=== PATIENT | female | born 1970 | race Caucasian/White ===

== ENCOUNTER → 2017-10-18 06:01 | Outpatient (CLI) | payer OTHER, SELFPAY ==
[2017-10-18 07:27] LABS: Anion Gap 7 (5-15); BUN 18 mg/dL (7-18); BUN/Creat Ratio 17.6 RATIO (10-20); Calcium,Total 8.4 mg/dL (8.5-10.1); Chloride 103 mmol/L (98-107); Creatinine, Serum 1.02 mg/dL (0.55-1.02); EST Glomerular Filtration Rate 62 mL/min (>60); Est Glom Filt Rate - Afr Amer 75 mL/min (>60); Glucose 120 mg/dL (74-106); Potassium 3.2 mmol/L (3.5-5.1); Sodium Level 136 mmol/L (136-145)
== END ==
PROVIDERS: Family Provider Family Medicine; PCP Family Medicine; Visit Provider Family Medicine
DX: R63.5 Abnormal weight gain (principal); R53.83 Other fatigue; E87.6 Hypokalemia
CPT/HCPCS: 36415; 80048; 82533

== ENCOUNTER 2017-12-03 15:30 | Outpatient (RCR) | payer OTHER, SELFPAY ==
--- NOTE | 2017-11-05 13:40 | HP.PTEVAL_ITS ---
Patient's Visit Information MANJULA SAUCEDA is a 47 year old F referred to Physical Therapy by Tu Parra with a diagnosis of B PFitis. Date of Evaluation: 11/05/17 Physical Therapist: Enrique Johnson, KATET, OC - Visit Plan Frequency: 3x /Week Duration: 4 Weeks Plan: 3x/week for 3-4 weeks for ionto with dex per script, education on management of night splint and orthotics, STM to gastroc and soleus and eccentric HC strength and calcanela ev mobs and PF STM, US nonthermal to R heel. Has OTC orthotics from doctor office but may benefit from custom orthotics. - Subjective Subjective: R heel pain for over a year, L started recently also. R is up and down. May have started after breaking R tibia fracture in 2015 and was wearing a boot for a while. Has done stretching and chiropractic. Dr. Parra tapes it and has had shock EPAT therapy and it did not cure it and will continue the treatments. R heel: Pain to 0-5/10, worse after sitting for a while or NWB or if on it too much. L heel: 0-2/10. A.M. 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 Sleep is OK. Activities at home are effected as hard to walk dogs and do housework. Hurts too much. Used to do cardio at [employer] but cannot do it due to this and has gained 20# over last 2 years. Has done stretches rolling can on foot or ball on foot, DF stretch, calf stretch on wall and does them 3x/night at work. Has orthotics for a month from Dr. Parra. Has nightsplint . Had injections months ago which did not help at all. - Pain R heel Pain Intensity (Out of 10): 2 Pain Intensity Range: 0, 3 L heel Pain Intensity (Out of 10): 2 Pain Intensity Range: 0, 5 - Objective Walks into and out of PT I and without antalgia today, transfers I. Tender to palpation R heel PF origin moderatley and slightly on L. Pes planus B and R side has some mild hindfoot valgus. AROM B Ankles WNL to 8 degrees DF knees straight adn bent, WFL inv/ev/PF. Strength ankles 4+/5 with mild increased pain R inv at heel. Knees adn hips ROM WFL. - Goals Goal 1:: Pain to 0-1/10 at all times at 90% improved. Goal Time Frame: 4-6 Weeks Goal 2:: I approp HEP and management to minimize future problems Goal Time Frame: 4-6 Weeks - Rehabilitation Potential Physical Therapy Diagnosis: B PFitis Rehabilitation Potential: Questionable - Anticipated Interventions Patient/Client Instruction: Educate patient on: Condition, Plan of Care For the Purpose of:: To decrease pain, To improve nutrient delivery to tissue, To improve ability of physical actions for home/community/work/leisure Therapeutic Exercise to Include: Strength training, Flexibilty training For the Purpose of:: To decrease pain, To decrease swelling/inflammation Manual Therapy Techniques to Include: Mobilization, Passive ROM, Soft tissue mobilization For the Purpose of:: To decrease pain, To decrease swelling/inflammation, To increase ROM Iontophoresis (with Dexamethozone, with Acetic acid): Yes - dex to B PF Ultrasound (thermal/non thermal): Yes - R heel nonthermal. For the Purpose of:: To decrease pain, To decrease swelling/inflammation Thank you for the opportunity to evaluate your patient. For Medicare and Medicare HMO plans, please review the plan of care and approve it. It will need to be FAXED BACK to us at [phone] for Medicare purposes. Please let me know if there are questions or concerns regarding this plan of care. Physician Signature: Date:
--- NOTE | 2017-12-03 16:02 | HP.PTDCSUM_ITS ---
HP - PT D/C Summary It has been my pleasure to treat MANJULA SAUCEDA under orders from Tu Parra, for the diagnosis of B PFitis for a total of 10 visit(s). Discharge Date: 12/03/17 Please see the following information for a summary of their discharge status. - Subjective Subjective: Beens tretching alot and R heel is like a toothache all weekend. 5/ 10. L side is not perfect but much better /10. Doing some strengthening but it hurts. Has had 6 shock wave therapies. Surgery may be the next step. saw doctor Sunday and surgery is only other step. Worked all weekend and was on feet alot but elevated foot as she was able. - Pain R heel Pain Intensity (Out of 10): 5 L heel Pain Intensity (Out of 10): 1 - Overall Improvement % Improvement: 10 - Objective Objective/Function: ROM at ankle 10 degrees DF with knee bent and straight B. Still very tender R heel medially. Antalgia in gait and frustrated patient. OVERALL LEFT IS SOMEWHAT IMPROVED ADN NOT A FUNCTIONAL PROBLEM, R IS NO BETTER AND VERY FRUSTRATING FOR PATIENT DESPITE DOING WHAT WE HAVE ASKED. - Goals Goal 1:: Pain to 0-1/10 at all times at 90% improved. Goal Progress: Not Progressing Goal 2:: I approp HEP and management to minimize future problems Goal Progress: Goal Met - Plan Plan: D/C, pt to doctor for next step. - D/C Information Discharge Comments: Not improving on R side and frustrating patient. Recommend next medical step for R heel pain. Pt to contact doctor. If there are questions or concerns regarding this patient's physical therapy, please feel free to call me at [phone]. Thank you for the referral of this patient. Sincerely, Enrique Johnson, DPT, OC
== END 2017-12-03 19:00 | disposition home or self-care (01) ==
LOC: PT 15:30
PROVIDERS: Family Provider Family Medicine; PCP Family Medicine; Visit Provider Podiatrist
DX: M72.2 Plantar fascial fibromatosis (principal)
CPT/HCPCS: 97033; 97110; 97140; 97162; 97530

== ENCOUNTER → 2017-12-12 09:01 | Outpatient (CLI) | payer OTHER, SELFPAY ==
--- NOTE | 2017-12-12 09:03 | RDU_ITS ---
Reason For Study: HYPERTENSION Right Renal Artery Left Renal Artery Right renal artery ostium Left renal artery ostium 133.0/47.4 174.0/63.6 RSV/EDV. PSV/EDV. Right renal artery proximal Left renal artery proximal PSV/EDV 178.0/63.0 PSV/EDV. 142.0/42.0 . Right renal artery mid 155.0/44.7 Left renal artery mid 149.0/48.9 PSV/EDV. PSV/EDV . Right renal artery distal Left renal artery distal 132.0/42.8 169.0/62.3 PSV/EDV. PSV/EDV. Right RAR 2.1. Left RAR 1.8. Right Renal Parenchyma Left Renal Parenchyma Upper Pole Medula 21.7/6.9 PSV/EDV. Left upper pole medulla 38.8/12.8 Right upper pole medulla EDR .32 . PSV/EDV . Right upper pole medulla R.I. .68 . Left upper pole medulla EDR .33 . Upper [place] Cortx 27.8/11.1 PSV/EDV. Left upper pole medulla R.I. .67 . Right upper pole cortex EDR .40 . UP Cortex 26.9/11.9 PSV/EDV. Right upper pole cortex R.I. .60 . Left upper pole cortex EDR .44 . Right lower Pole medulla 25.7/10.2 Left upper pole cortex R.I. .56 . PSV/EDV . Left lower Pole medulla 34.2/12.8 Right lower pole medulla EDR .40 . PSV/EDV . Right lower pole medulla R.I. .60 . Left lower pole medulla EDR .37 . Lower Pole Cortex 23.7/7.6 PSV/EDV. Left lower pole medulla R.I. .63 . Right lower pole cortex EDR .32 . Lower Pole Cortx 32.4/10.5 PSV/EDV. Right lower pole cortex R.I. .68 . Left lower pole cortex EDR .32 . Right Renal Hilar Left lower pole cortex R.I. .68 . Right Hilar avg 60.6/23.3 PSV/EDV. Left Renal Hilar Right hilar acceleration time 51 LT Hilar avg 51.8/19.3 PSV/EDV . m/sec. Left hilar acceleration time 51 Right Renal Dimensions m/sec. Right kidney size 10.8 cm . Left Renal Dimensions Right cortical dimension 1.5 cm . Left kidney size 9.5 cm . Left cortical dimension 1.4 cm . Aorta Proximal abdominal aorta 1.7 x 1.6 cm . Distal abdominal aorta 1.3 x 1.3 cm . Proximal abdominal aorta peak systolic velocity is 83.9 cm/sec . Distal abdominal aorta peak systolic velocity is 96.7 cm/sec . Interpretation Summary Dimensions of the intra-abdominal aorta appear normal, without evidence of aneurysmal dilatation. Renal artery velocities are bilaterally normal. Acceleration times are normal bilaterally. Renal- aortic ratios are also bilaterally normal. There is no evidence of hemodynamically significant renal artery stenosis on either side. Renovascular resistance appears to be bilaterally normal . Cortical dimensions are bilaterally normal. Kidneys are normal in size bilaterally, though the right kidney is more than one centimeter larger than the left kidney. Ordering Physician: Gayle Merino Referring Physician: Gayle Merino Performed By: Nicole Ambrocio RVT
== END ==
PROVIDERS: Family Provider Family Medicine; PCP Family Medicine; Visit Provider Family Medicine
DX: I10 Essential (primary) hypertension (principal)
CPT/HCPCS: 93975

== ENCOUNTER → 2017-12-13 16:23 | Outpatient (CLI) | payer OTHER, SELFPAY ==
--- NOTE | 2017-12-13 16:41 | MRI_ITS ---
STUDY: MRI RIGHT REARFOOT WITHOUT CONTRAST REASON FOR EXAM: Female, 47 years old. Plantar fasciitis. Heel spur. TECHNIQUE: Standardized fat and water weighted pulse sequences were obtained in all 3 orthogonal planes. COMPARISON: X-ray January 02, 2017 FINDINGS: Normal subcutis adipose space. There is thickening of the distal posterior tibialis tendon consistent with insertional tendinosis, but without a tendon tear. Normal flexor digitorum longus tendon. Normal flexor hallucis longus tendon. Normal peroneus longus and brevis tendons. Normal tibialis anterior tendon. Normal extensor hallucis longus tendon. Normal extensor digitorum longus tendons. Normal Achilles tendon and teno-osseous insertion. There is a plantar fasciitis with plantar fascial thickening and fascial edema, but without a focal tear, series 3 and 4 images 14 and 15. There is a plantar calcaneal spur with focal marrow edema consistent with a marrow stress phenomena, series 3 and 4 images 13 through 15. Normal intrinsic muscles of the rearfoot. Normal distal tibiofibular syndesmotic ligamentous complex. Normal lateral ligamentous complex. Normal subtalar ligaments and sinus tarsi. Normal deltoid ligamentous complexes. Normal plantar calcaneonavicular (spring) ligament. Normal tibiotalar articulation. There is subchondral edema of the posterior tibial plafond Normal talar dome. Normal subtalar articulations. Normal talonavicular articulation. Normal calcaneocuboid articulation. Normal navicular-cuneiform articulations. MRI/Lower Ext/No Jt/w/o IMPRESSION: Planter fasciitis with reactive spurring and edema of the calcaneus. Electronically Signed: Farzad Ann MD at 8:22 EDT , Service support ,
== END ==
PROVIDERS: Family Provider Family Medicine; PCP Family Medicine; Visit Provider Podiatrist
DX: M72.2 Plantar fascial fibromatosis (principal); M77.31 Calcaneal spur, right foot
CPT/HCPCS: 73718

== ENCOUNTER → 2017-12-28 07:51 | Outpatient (CLI) | payer OTHER, SELFPAY ==
[2017-12-28 09:39] LABS: T4 Free Direct 0.93 ng/dL (0.76-1.46); Thyroid Stim Hormone (TSH) 0.79 uIU/mL (0.358-3.74)
== END ==
PROVIDERS: Family Provider Family Medicine; PCP Family Medicine; Visit Provider Family Medicine
DX: E03.9 Hypothyroidism, unspecified (principal)
CPT/HCPCS: 84439; 84443; 84480

== ENCOUNTER 2018-01-25 07:46 | Day surgery (SDC) | payer OTHER, SELFPAY ==
[2018-01-25] VITALS (7 sets, daily range): BP systolic 107–130; BP diastolic 77–95; PULSE 58–80; RESP 16–18; TEMP 36.6–37.1; O2SAT 16–100; BMI 30.1
--- NOTE | 2018-01-25 08:55 | RAD_ITS ---
STUDY: X-RAY - RIGHT FOOT CLINICAL: Female, 47 years old. Resection of the plantar spur. TECHNIQUE: 2 intraoperative view(s) of the foot. COMPARISON: Comparison is made with prior study dated January 02, 2017. FINDINGS: There is evidence of resection of the plantar spur. RAD/Foot 2 Views IMPRESSION: Resection of the plantar spur. Electronically Signed: Orlando Razo MD at 13:25 EDT Tel [phone], Service support ,
[2018-01-25] MEDS: Bupivacaine Mpf 0.5% 30 ML VIAL (09:10)
--- NOTE | 2018-01-25 09:38 | PCM.DC.POD ---
Discharge Diet: Light diet - advance as tolerated Discharge Activity: May Not Drive, Use Crutches Weight Bearing Status: No weight bearing - No weightbearing right foot Keep extremity elevated above heart level: Right Leg - Keep right foot elevated for at least 50 minutes of every hour using pillows Call your doctor if your incision/area has: Continuous Slow Oozing, Sudden Increased Bleeding, Foul Smelling Discharge Call your doctor if you observe: Fever of 101 or Higher, Shortness of breath, Chest pain, Increased palpitations (irregular heartbeat), Calf discomfort, Uncontrolled pain Cleanse incision/area with: Do not get Incision Wet, Keep Dressing Clean & Dry Allergies/Adverse Reactions: Allergies acetaminophen [From Percocet] Adverse Reaction (Verified 01/25/18 08:11) Other HALLUCINATIONS oxycodone [From Percocet] Adverse Reaction (Verified 01/25/18 08:11) Other HALLUCINATIONS Medications to take at Discharge Levothyroxine [Synthroid] 88 mcg PO DAILY 05/21/13 Montelukast [Singulair] 10 mg PO DAILY 01/12/15 Dextroamphetamine/Amphetamine [Adderall 12.5 mg Tablet] 12.5 mg PO BID 01/30/16 Linaclotide [Linzess] 290 mcg PO QODAY 01/30/16 Citalopram [Celexa] 20 mg PO DAILY 07/13/16 Loratadine [Claritin] 10 mg PO DAILY 07/13/16 Potassium Citrate [Potassium Citrate ER] 10 meq PO DAILY 01/18/18 Triamterene/Hydrochlorothiazid [Triamterene-Hctz 37.5-25 mg Cp] 1 each PO DAILY 01/18/18 Acetaminophen/Codeine #3 [Tylenol#3] 1 - 2 tab PO Q6H PRN PRN 3 Days #30 tab 01/25/18 The following prescriptions were given: Acetaminophen/Codeine #3 [Tylenol#3] 1 - 2 tab PO Q6H PRN PRN 3 Days #30 tab PRN Reason: Pain Primary Care Physician: Gayle Merino DO [Primary Care Provider] - Test Results: Test results from this visit will be discussed in further detail at your follow-up appointment, if applicable. Please Follow Up With: Tu Parra DPM When: within 1 week, sooner if needed
--- NOTE | 2018-01-25 09:41 | OP.PCM_ITS ---
Report of Operation Date of Procedure: 01/25/18 Pre-Operative Diagnosis: Plantar fasciitis and infracalcaneal spur, right foot Post-Operative Diagnosis: Same Surgery/Procedure Performed:: Plantar fasciotomy with resection of infracalcaneal spur, right Description of Surgical Findings:: Infracalcaneal spur, right event marketing assistant: yes - Dr. 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 She has elected to undergo surgical intervention - plantar fasciotomy with resection of infracalcaneal heel spur. This was discussed with her in detail, reviewed the possible benefits vs risks, goals, expectations, alternative options, and typical healing/post op recovery. The consent forms were reviewed with her, and she freely signed them. All of her questions were answered. No guarantees were given nor implied. Operative Procedure: The patient was brought back into the operating room and was placed on the operating room table in the supine position. She was carefully secured to the operating room table with a safety belt around the waist. A time out was performed and the patient was properly identified and the surgical plan was confirmed. The patient received 2g of IV Cefazolin for antibiotic prophylaxis. A well padded pneumatic tourniquet was applied around the patient's right ankle. The patient received MAC anesthesia per the anesthesiologist, and a total of 20mL of 0.5% Bupivacaine plain was given as a regional nerve block around the heel surgical site. The right foot was scrubbed , prepped, draped in the usual aseptic fashion. The right foot was elevated for 3 minutes and the right ankle pneumatic tourniquet was inflated to 250mmHg. The infracalcaneal spur was visualized on intra operative fluoroscopy, image was saved. A skin incision was made to the medial hindfoot at the level of the plantar fascia and infracalcaneal spur, careful dissection was completed down through the subcutaneous tissue layer. A plane was created superiorly and inferiorly around the plantar fascia and the medial 50% of the plantar fascia was released via a plantar fasciotomy. It was noted there was significant thickening of the plantar fascia with fibrosis consistent with chronic plantar fasciitis. The infracalcaneal spur was felt, and was carefully resected using a powered rasp. Resection of the infracalcaneal spur was confirmed using intraoperative fluoroscopy. Images pre and post infracalcaneal spur resection were saved. The site was flushed out with copious amounts of normal saline solution. The skin was reapproximated using 3-0 Monocryl. The pneumatic tourniquet was deflated (total tourniquet time was 24 minutes), and there was immediate return of warmth and perfusion to the foot and to all toes on the foot with normal temperature gradient and CFT < 2 seconds to all toes. Hemostasis was achieved. A dressing was applied which consisted of Betadine soaked adaptic, 4x4 gauze, Kerlix and barbara bandage, being sure to apply it not to tight. The patient tolerated the above operative procedure well at the anesthesia well with no complication. The patient was transported to the recovery room with vital signs stable and in good condition. Post operative orders were placed. Post operative instructions were reviewed and dispensed verbal and written. No weightbearing right foot, keep right foot elevated for at least 50 minutes of every hour, keep dressing clean, dry and intact. Prescription for Tylenol #3 1- 2 tabs PO q 6 hours prn pain was prescribed. She is to follow up with me within 1 week or sooner if needed. Grafts/Implants Used: None - Complications None
== END 2018-01-25 10:37 | disposition home or self-care (01) ==
LOC: SDC 07:47 → AC 07:48
PROVIDERS: Family Provider Family Medicine; PCP Family Medicine; Visit Provider Podiatrist
PROC: (CPT 28119; principal; 2018-01-25 08:45)
DX: M72.2 Plantar fascial fibromatosis (principal); M77.31 Calcaneal spur, right foot; E03.9 Hypothyroidism, unspecified; I10 Essential (primary) hypertension; F90.9 Attention-deficit hyperactivity disorder, unspecified type; K21.9 Gastro-esophageal reflux disease without esophagitis; Z79.899 Other long term (current) drug therapy; R00.1 Bradycardia, unspecified
CPT/HCPCS: 28119; 73620; 76000; 93005; J7120; J2405

== ENCOUNTER 2018-03-26 15:00 | Outpatient (RCR) | payer OTHER, SELFPAY ==
--- NOTE | 2018-02-22 11:16 | HP.PTEVAL ---
Patient's Visit Information MANJULA SAUCEDA is a 47 year old F referred to Physical Therapy by Tu Parra with a diagnosis of S/P PLANTAR FASCIOTOMY RESECTION OF SPUR. Date of Evaluation: 02/22/18 Physical Therapist: Vazquez Norman PT, - Visit Plan Frequency: 2x /Week Duration: 4 Weeks Plan: PT intervention flexablity,strengthing ankle plantar fascia,ROM,proprioception - Subjective Subjective: This 47 y/o female presents to physical therapy with s/p plantar fasciotomy and heel spur resection on 01/25/18 at [facility] by DR Parra. Patient was d/c to home DOS NWB right with crutches . Then transition WBAT with boot and weaned from crutches as anita. Patient is in CAM 1 more week and transition out CAM boot to foot orthotics and shoe. Tried PT to surgery and EP which didnt help.Tried cortizone helped temporarly. Patient has orthotitics. Pain is located at heel at inscion . Denies parathesia/tingling. Mild edema. Pain worse with walking standing affects ADL'S and job demands. Patient impairments affect QOL of life.Pain increase with WB and walking. SOCAIL: . 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 GAIT: ambulates with cam boot decrease stance time. PRIOPRIOCEPTION: poor. NEURO: intact. AROM: dorsiflexion 10 ddegrees,plantarflexion 65 degrees,eversion 3 degrees,inversion 40 degrees. SKIN: inscion well approxiamte calcaneous. PALPATION: tender heel. MMT: ankle dorsiflexion /perneous/posterior tibials 4/5 except G-S 3+/5 - Goals Goal 1:: Independant with HEP Goal Time Frame: 4-6 Weeks Goal 2:: Decrease pain with gait by 70% or greater to improve function. Goal Time Frame: 4-6 Weeks Goal 3:: Patient to ambaulate with normal monique Goal Time Frame: 4-6 Weeks Goal 4:: Improve proprioception symmtrical right to left Goal Time Frame: 4-6 Weeks Goal 5:: Patient to improve LFES score by 15-20points to improve QOL Goal Time Frame: 4-6 Weeks - Rehabilitation Potential Physical Therapy Diagnosis: This patient underwent s/p plantarfasciotomy with spur resection with impairments with gait ,wean from boot,ROM, and pain thus impairs ablity to retrurn job demnads Rehabilitation Potential: Good - Anticipated Interventions Patient/Client Instruction: Educate patient on: Condition, Plan of Care For the Purpose of:: To decrease pain, To increase ROM, To improve muscle performance and motor function, To improve ability to perform ADL's, To increase tolerance to activity/condition/position, To improve ability of physical actions for home/community/work/leisure, To improve gait and locomotor functions, To improve health of tissue, To decrease soft tissue restriction, To increase flexibility/ROM, To improve balance, To improve ability to perform tasks related to life management Therapeutic Exercise to Include: Strength training, Flexibilty training, Gait and locomotor training, Passive ROM, Active ROM Comment: ankle /plantarfascia For the Purpose of:: To decrease pain, To decrease swelling/inflammation, To increase ROM, To improve muscle performance and motor function, To increase tolerance to activity/condition/position, To improve ability of physical actions for home/community/work/leisure, To improve health of tissue, To decrease soft tissue restriction, To increase flexibility/ROM, To improve ability to perform tasks related to life management Thank you for the opportunity to evaluate your patient. For Medicare and Medicare HMO plans, please review the plan of care and approve it. It will need to be FAXED BACK to us at [phone] for Medicare purposes. Please let me know if there are questions or concerns regarding this plan of care. Physician Signature: Date:
--- NOTE | 2018-03-26 15:30 | HP.PTDCSUM ---
HP - PT D/C Summary It has been my pleasure to treat MANJULA SAUCEDA under orders from Tu Parra, for the diagnosis of S/P PLANTAR FASCIOTOMY RESECTION OF SPUR for a total of 9 visit(s). Discharge Date: 03/26/18 Please see the following information for a summary of their discharge status. - Subjective Subjective: Doing well no pain today. Dr released me from work - Pain Left Foot Pain Intensity (Out of 10): 0 R foot Pain Intensity (Out of 10): 0 - Overall Improvement % Improvement: 80 - Objective Objective/Function: PALPATION: mild tenderness plantarfascia. NEURO: intact. AROM: ankle WNL all planes. MMT: ankle 5/5. PROPRIOCEPTION: intact - Goals Goal 1:: Independant with HEP Goal Progress: Goal Met Goal 2:: Decrease pain with gait by 70% or greater to improve function. Goal Progress: Goal Met Goal 3:: Patient to ambaulate with normal monique Goal Progress: Goal Met Goal 4:: Improve proprioception symmtrical right to left Goal Progress: Goal Met Goal 5:: Patient to improve LFES score by 15-20points to improve QOL Goal Progress: Goal Met - Plan Plan: D/C to HEP - D/C Information Discharge Comments: HEP If there are questions or concerns regarding this patient's physical therapy, please feel free to call me at [phone]. Thank you for the referral of this patient. Sincerely, Vazquez Norman, PT,
== END 2018-03-26 19:00 | disposition home or self-care (01) ==
LOC: PT 15:00
PROVIDERS: Family Provider Family Medicine; PCP Family Medicine; Referring Provider Podiatrist; Visit Provider Podiatrist
DX: Z98.890 Other specified postprocedural states (principal)
CPT/HCPCS: 97035; 97110; 97140; 97161

== ENCOUNTER → 2018-07-24 15:32 | Outpatient (CLI) | payer OTHER, SELFPAY ==
[2018-01-25 08:02] VITALS: BMI 30.1
--- NOTE | 2018-07-24 15:34 | BI_ITS ---
MAMMOGRAPHY - BILATERAL SCREENING 3-D FEDERICO SYNTHESIS REASON FOR EXAM: Female, 47 years old. Bilateral Screening 3-D tomosynthesis PERTINENT HISTORY: History of cysts. TECHNIQUE: 2-D mammograms and 3-D Federico synthesis of the breast (s) were performed. CAD was performed. COMPARISON: December 20, 2016, September 02, 2014 FINDINGS: The breast composition is composed of scattered fibroglandular density. Scattered benign calcifications are seen stable. There are normal-appearing lymph nodes unchanged. No dense spiculated masses or suspicious microcalcifications are identified. No architectural distortion is identified. There is no skin thickening or retraction. There has been no significant change since the prior study. BI/SCREENING MAMM (CAD), BILAT IMPRESSION: No mammographic signs of malignancy. Routine yearly mammograms recommended. ASSESSMENT CATEGORY: BIRADS Category 2: Benign. A letter regarding these results will be sent to the patient by the facility within 30 days. FOLLOW UP RECOMMENDATION: Yearly follow up mammogram recommended. (A) Approximately 10% of breast cancers are not detected by mammography. A normal mammogram should not delay biopsy of a clinically suspicious abnormality. Electronically Signed: Ko Stratton MD at 13:11 EDT , Service support ,
== END ==
PROVIDERS: Family Provider Family Medicine; PCP Family Medicine; Referring Provider Family Medicine; Visit Provider Family Medicine
DX: Z12.31 Encounter for screening mammogram for malignant neoplasm of breast (principal)
CPT/HCPCS: 77063; 77067

== ENCOUNTER → 2018-07-29 14:25 | Outpatient (CLI) | payer OTHER, SELFPAY ==
--- NOTE | 2018-07-29 14:27 | US_ITS ---
STUDY: THYROID ULTRASOUND REASON FOR EXAM: Female, 47 years old. Follow-up thyroid nodules. TECHNIQUE: Ultrasound evaluation of the thyroid was performed with real-time and static witt-scale imaging. COMPARISON: 12/15/2015. FINDINGS: RIGHT LOBE: The right lobe of the thyroid gland measures 3.8 x 1.1 x 1.7 cm. There is a homogeneous echotexture. There are no demonstrated solid, cystic or complex lesions. The sagittal nodule in the right thyroid lobe that was mentioned previously is not visualized in today's exam. LEFT LOBE: The left lobe of the thyroid gland measures 3.6 x 0.9 x 1.6 cm. There is a homogeneous echotexture. 2 solid nodules, isoechoic and hypoechoic. They measure approximately 0.8 x 0.6 x 0.6 cm and 0.4 x 0.3 x 0.3 cm respectively. ISTHMUS: The isthmus measures 3 mm. Lateral to the right thyroid lobe is a solid isoechoic lymph node with a hypoechoic rim. This measures 1.1 x 0.5 x 0.3 cm. There were 2 lymph nodes identified in this area. Only one is visualized in today's exam. US/Thyroid IMPRESSION: 1. Nonvisualization of the previously subtle hypoechoic nodule in the right thyroid lobe. 2. Normal right thyroid lobe at this time. 3. 2 small solid nodules in the left lower lobe are unchanged when compared to 12/15/2015. 4. Small benign reactive lymph node in the right neck measures 1.1 x 0.5 x 0.3 cm. This is unchanged. 5. Nonvisualization of the second small lymph node in the right neck in today's exam. Electronically Signed: Gabriel Wong MD at 13:29 EDT , Service support ,
== END ==
PROVIDERS: Family Provider Family Medicine; PCP Family Medicine; Referring Provider Family Medicine; Visit Provider Family Medicine
DX: E04.2 Nontoxic multinodular goiter (principal)
CPT/HCPCS: 76536

== ENCOUNTER → 2018-09-02 | Outpatient (CLI) | payer OTHER, SELFPAY ==
[2018-09-02] MEDS: Zolpidem Tartrate 5 MG Tablet PO (22:00)
== END | disposition home or self-care (01) ==
LOC: SL 20:45
PROVIDERS: Family Provider Family Medicine; PCP Family Medicine; Referring Provider Family Medicine; Visit Provider Family Medicine
DX: G47.30 Sleep apnea, unspecified (principal)
CPT/HCPCS: 95811

== ENCOUNTER → 2018-10-29 | Outpatient (CLI) | payer OTHER, SELFPAY ==
[2018-10-28 17:42] VITALS: BMI 30.1
[2018-10-29 14:46] LABS: Mucous, Urine 0 SEEN /hpf (<or=2+); Red Blood Cells-Urine 0 SEEN /hpf (0-5); White Blood Cells 0 SEEN /hpf (0-5)
[2018-10-29 14:51] LABS: Color, Urine Yellow (Yellow); Glucose, Dipstick Normal (Normal); Ketone-Dipstick Negative (Negative); Leukocyte Esterase-Dipstick Negative /ul (Negative); Nitrite-Dipstick Positive (Negative); Occult Blood-Urine 25 /ul (Negative); Protein-Dipstick Negative (Negative); Urine Bilirubin Dipstick Negative (Negative); Urine Clarity Sl. Cloudy (Clear); Urine Urobilinogen 1 mg/dl (Normal); Urine pH 6.5 (5.0 - 8.0)
[2018-10-29 14:59] LABS: Bacteria 1+ /hpf (None Seen); Squamous Epithelial Cells - UA 0-5 SEEN /hpf (5-10)
== END | disposition home or self-care (01) ==
LOC: LABSPEC 14:18
PROVIDERS: Family Provider Family Medicine; PCP Family Medicine; Referring Provider Physician Assistant Surgical; Visit Provider Physician Assistant Surgical
DX: R30.0 Dysuria (principal)
CPT/HCPCS: 81001; 87086

== ENCOUNTER → 2018-11-11 | Outpatient (CLI) | payer OTHER, SELFPAY ==
[2018-10-28 17:42] VITALS: BMI 30.1
--- NOTE | 2018-11-11 15:57 | RAD_ITS ---
STUDY: X-RAY - RIGHT HAND REASON FOR EXAM: Female, 48 years old. Injured hand TECHNIQUE: 3 view(s) of the hand. COMPARISON: None. FINDINGS: No fracture or dislocation. The soft tissue structures are unremarkable. RAD/Hand Min 3 Views IMPRESSION: Normal x-ray examination of the hand. Electronically Signed: Monserrat Conn, at 16:47 EDT Tel , Service support ,
== END | disposition home or self-care (01) ==
LOC: RAD 15:50
PROVIDERS: Family Provider Family Medicine; PCP Family Medicine; Referring Provider Family Medicine; Visit Provider Family Medicine
DX: M79.641 Pain in right hand (principal)
CPT/HCPCS: 73130

== ENCOUNTER → 2019-02-27 14:59 | Outpatient (CLI) | payer OTHER, SELFPAY ==
[2019-02-27 14:39] VITALS: BMI 30.1
--- NOTE | 2019-02-27 15:00 | RAD_ITS ---
STUDY: X-RAY - RIGHT HAND REASON FOR EXAM: Swelling between first and second knuckles, injury a couple months ago. TECHNIQUE: 3 view(s) of the hand. COMPARISON: Radiographs 11/11/2018. FINDINGS: Normal radiocarpal articulation. Normal distal radioulnar joint. Normal visualized carpal bones. Normal carpal articulations Normal carpometacarpal articulation of the thumb. Normal second through fifth carpometacarpal joints. Normal metacarpi. Normal metacarpophalangeal joint of the thumb. Normal interphalangeal joint of the thumb. Normal proximal and distal phalanges of the thumb. Normal metacarpophalangeal joints of the second through fifth fingers. Normal proximal and distal interphalangeal joints of the second through fifth fingers. Normal phalanges of the second through fifth fingers. The soft tissue structures are unremarkable. RAD/Hand Min 3 Views IMPRESSION: Normal x-ray examination of the right hand. Electronically Signed: Jonnie Samano MD at 15:35 EDT Tel , Service support ,
== END ==
PROVIDERS: Family Provider Family Medicine; PCP Family Medicine; Referring Provider Orthopaedic Surgery; Visit Provider Orthopaedic Surgery
DX: M79.641 Pain in right hand (principal)
CPT/HCPCS: 73130

== ENCOUNTER 2019-03-03 15:15 | Emergency (ER) | payer OTHER, SELFPAY ==
[2019-03-03 14:35] VITALS: BMI 30.1
[2019-03-03 15:17] VITALS: BP 158/113; PULSE 85; RESP 16; TEMP 36.9; O2SAT 100; BMI 38.5
[2019-03-03] MEDS: 0.9% Normal Saline 1,000 ML 1000 ML IV (15:47)
[2019-03-03] MEDS: Ketorolac 15 MG/ML Vial IV (15:47)
--- NOTE | 2019-03-03 15:54 | RAD_ITS ---
STUDY: X-RAY CHEST REASON FOR EXAM: Female, 48 years old. Shortness of breath. TECHNIQUE: PA and lateral views of the chest. COMPARISON: None. FINDINGS: There is no focal consolidation. There are few curvilinear opacities within the left lower lung that likely reflect underlying scarring and/or atelectasis. Normal size heart. Normal mediastinum and debbie. Normal visualized pulmonary arteries. Normal visualized aortic arch and descending thoracic aorta. Normal visualized thoracic spine. Normal visualized ribs, clavicles, and shoulders. There is no demonstrated abnormality of the visualized soft tissue structures of the upper abdomen. RAD/Chest PA and Lateral IMPRESSION: Minimal scarring and/or atelectasis within the left lower lung. Electronically Signed: Danette Orlelana MD at 16:12 EDT Tel , Service support ,
[2019-03-03 15:57] LABS: Absolute Lymphocyte Count 1.24 X10^3/uL (0.83-4.51); Absolute Neutrophil Count 3.1 X10^3/uL (2.0-7.7); Basophil# 0.02 X10^3/uL; Basophil% 0.4 % (0-1); Eosinophil# 0.44 X10^3/uL; Hematocrit 39.9 % (37-47); Hemoglobin 13.8 g/dL (12.0-15.0); Lymphocyte # 1.24 X10^3/ul (4.0); Lymphocyte % 22.6 % (19-41); Mean Corp Hgb Conc 34.6 g/dL (32-36); Mean Corpuscular Hgb 31.4 pg (27.0-32.0); Mean Corpuscular Volume 90.9 fL (81-99); Mean Platelet Vol. 9.5 fl (6.2-12.0); Monocyte# 0.67 X10^3/uL; Monocyte% 12.2 % (0-10); NRBC Flagged by Analyzer 0 % (0-5); Neutrophil % 56.4 % (47-70); Platelet Count 244 K/mm3 (150-450); RBC Distribution Width CV 12.5 % (11.6-14.6); RBC Distribution Width SD 41.5 fl (35.1-43.9); Red Blood Count 4.39 M/mm3 (4.2-5.4); White Blood Count 5.5 K/mm3 (4.4-11.0)
[2019-03-03 16:04] LABS: Anion Gap 7 (5-15); BUN 11 mg/dL (7-18); BUN/Creat Ratio 13.4 RATIO (10-20); Calcium,Total 8.4 mg/dL (8.5-10.1); Chloride 103 mmol/L (98-107); Creatinine, Serum 0.82 mg/dL (0.55-1.02); EST Glomerular Filtration Rate 80 mL/min (>60); Est Glom Filt Rate - Afr Amer 97 mL/min (>60); Estimated Creatinine Clearance 70.91 ml/min; Glucose 81 mg/dL (74-106); Potassium 3.5 mmol/L (3.5-5.1); Sodium Level 137 mmol/L (136-145)
--- NOTE | 2019-03-03 16:43 | ED.VISSUMM ---
- ER Visit Summary Date of Service: 03/03/19 Chief Complaint: [Sore throat] History of Present Illness: The patient is a 48 F [presents with a sore throat that started 2 days ago. Patient has some nasal congestion as well as headache and cough. Cough is productive at times. Patient at times feels short of breath activity. Patient states that she feels puffy and feels like her throat is swollen. She is had subjective fever at home. Patient denies sick contacts. She does have a history of hypothyroidism.] Physical Examination: [HEENT-PERRLA, EOMI. Cranial nerves II through XII grossly intact. TMs clear. Mucous membranes moist. No adenopathy. She has some mild pharyngeal erythema. No tonsillar exudates. Uvula midline. No trismus. Patient does have some mild thyroid enlargement noted. Cardiovascular-regular rate and rhythm without murmur or ectopy Lungs-clear to auscultation, chest wall stable without crepitus or subcu emphysema Abdomen-normoactive bowel sounds, soft, nontender, no rebound or rigidity, no peritoneal signs. Extremities-intact ?4, normal range of motion, normal pulses, atraumatic] Test Results: [CBC with differential obtained was normal. Chemistries normal. Influenza screen negative. Strep screen was negative. Chest x-ray showed some lower lobe scarring versus atelectasis on the left. TSH ordered and pending.] Emergency Department Course and Treatment: [Patient was given Decadron 10 mg IV.] Treatment Plan: [Follow-up with primary care physician 3 to 5 days. Will be given prednisone for 3 days.] Disposition: [Discharged home in stable condition.] Impression: [Viral URI] This note was generated with [employer] dictation software. It may contain incorrect words, spelling, and punctuation that were not noted in review of the chart prior to signing ED Disposition - Plan for ED Patient: Referrals: Gayle Merino DO [Primary Care Provider] -
--- NOTE | 2019-03-03 16:45 | ED.DEP ---
ED Disposition - Plan for ED Patient: Instructions: PHARYNGITIS, Viral, URI, Viral, No Abx (Adult) Prescriptions: Prednisone [Deltasone] 20 mg PO DAILY #3 tab Prescription Printed Referrals: Gayle Merino DO [Primary Care Provider] - 3-5 Days
[2019-03-03] MEDS: dexAMETHasone 10 MG/ML Vial IV (16:52)
[2019-03-03 16:54] VITALS: BP 156/98; PULSE 62; RESP 18; O2SAT 97
[2019-03-03 17:07] LABS: Thyroid Stim Hormone (TSH) 2.45 uIU/mL (0.358-3.74)
== END 2019-03-03 16:58 | disposition home or self-care (01) ==
LOC: ED 15:35
PROVIDERS: Emergency Provider Emergency Medicine; Family Provider Family Medicine; PCP Family Medicine
DX: J06.9 Acute upper respiratory infection, unspecified (principal); E03.9 Hypothyroidism, unspecified
CPT/HCPCS: 71046; 80048; 84443; 85025; 87804; 87880; 96361; 96374; 96375; 99283

== ENCOUNTER 2019-04-14 15:00 | Outpatient (RCR) | payer OTHER, SELFPAY ==
[2019-02-27 14:39] VITALS: BMI 30.1
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
--- NOTE | 2019-06-23 18:12 | HP.OTDCNRP_ITS ---
HP - Discharge Summary - Patient Information MANJULA SAUCEDA was seen in my office for initial evaluation on 03/06/19. The following Plan of Care was established for this patient: Initial Frequency: 1x/Week Initial Duration: 4 Weeks Plan: D/C - Anticipated Interventions Anticipated Interventions: A/AAROM/PROM, Strengthening, Edema Control, Triggerpoint Release, Modalities, Orthoses, Joint Protection/Energy Conserva tion, Ergonomic Education This patient was last seen in our office 04/14/19. Pertinent comments regarding their Occupational therapy will appear below: PT was seen for 3 visits in OT. Pts initial eval was 2018 and last apt was 04/14/19. Pt continued to have swelling and therapy was using k-tape and ed. pt on edema control. Pt has not scheduled any further apts and is D/C at this time due to time lapse in services. At this point I will be discontinuing this patient from occupational therapy. I would be happy to see this patient again in the future if found appropriate by the physician. Thank you! Milly Garcia, OTR/L, CHT
== END 2019-04-14 19:00 | disposition home or self-care (01) ==
LOC: OT 15:00
PROVIDERS: Family Provider Family Medicine; PCP Family Medicine; Referring Provider Orthopaedic Surgery; Visit Provider Orthopaedic Surgery
DX: M79.89 Other specified soft tissue disorders (principal); S60.221D Contusion of right hand, subsequent encounter
CPT/HCPCS: 97035; 97110; 97140; 97166; 97530

== ENCOUNTER → 2019-10-23 10:09 | Outpatient (CLI) | payer OTHER, SELFPAY ==
[2019-10-25 12:07] LABS: Barley, Whole Grain <0.10 kU/L (Class 0); Beef <0.10 kU/L (Class 0); Egg, Whole 0.18 kU/L (Class 0/I); Garlic <0.10 kU/L (Class 0); Gluten 0.34 kU/L (Class I); Yeast <0.10 kU/L (Class 0)
[2019-10-25 14:32] LABS: Onion <0.10 kU/L (Class 0); Tomato <0.10 kU/L (Class 0)
== END ==
PROVIDERS: PCP Family Medicine; Referring Provider Otolaryngology; Visit Provider Otolaryngology
DX: T78.40XA Allergy, unspecified, initial encounter (principal)
CPT/HCPCS: 36415; 86003

== ENCOUNTER → 2019-11-19 10:18 | Outpatient (CLI) | payer OTHER, SELFPAY ==
--- NOTE | 2019-11-19 12:56 | NEURO ---
NCS and/or EMG Patient Report Ordering Doctor: Gayle Merino DATE OF SERVICE: 11/19/19 Lalitha Savage presents for electrodiagnostic testing of the right upper limb due to numbness and tingling. Electrodiagnostic Findings: Right median motor nerve demonstrates prolonged distal latency with normal amplitude and conduction velocity. Normal right ulnar motor response. Prolonged right median sensory latency at the wrist. Needle EMG shows no evidence of denervation with normal motor unit action potentials. Electrodiagnostic Assessment: This is an abnormal study. 1. Findings demonstrate right median mononeuropathy, consistent with a mild right carpal tunnel syndrome
== END ==
PROVIDERS: PCP Family Medicine; Referring Provider Family Medicine; Visit Provider Family Medicine
DX: R20.2 Paresthesia of skin (principal); R29.898 Other symptoms and signs involving the musculoskeletal system
CPT/HCPCS: 95886; 95910

== ENCOUNTER 2019-12-16 06:05 | Day surgery (SDC) | payer OTHER, SELFPAY ==
--- NOTE | 2019-12-10 06:43 | EKG12_ITS ---
Test Reason : PRE-OP Blood Pressure : / mmHG Vent. Rate : 057 BPM Atrial Rate : 057 BPM P-R Int : 142 ms QRS Dur : 084 ms QT Int : 476 ms P-R-T Axes : 049 014 034 degrees QTc Int : 463 ms Sinus bradycardia Septal infarct , age undetermined , cannot be excluded Abnormal ECG Confirmed by VIRAJ ZIMMER, YONG ([id number]), youth manager BARRIE MORENO ([id number]) on 12/15/2019 9:09:30 AM Referred By: Vitor Ariza Confirmed By:YONG CALI MD
[2019-12-10 07:59] LABS: Hematocrit 42.2 % (37-47); Hemoglobin 13.8 g/dL (12.0-15.0); Mean Corp Hgb Conc 32.7 g/dL (32-36); Mean Corpuscular Volume 91.7 fL (81-99); Mean Platelet Vol. 9.5 fl (6.2-12.0); Platelet Count 315 K/mm3 (150-450); RBC Distribution Width CV 12.5 % (11.6-14.6); White Blood Count 7.8 K/mm3 (4.4-11.0)
[2019-12-10 08:35] LABS: AST(SGOT) 20 U/L (15-37); Alanine Aminotransfer ALT/SGPT 28 U/L (13-56); Albumin, Serum 3.6 g/dL (3.2-5.0); Alkaline Phosphatase 109 U/L (45-117); Bilirubin, Direct 0.09 mg/dL (0.00-0.30); Globulin 4.2 g/dL (2.2-4.2); Protein, Total 7.8 g/dL (6.4-8.2); Thyroid Stim Hormone (TSH) 0.64 uIU/mL (0.358-3.74)
[2019-12-10 09:23] LABS: Prothrombin Time (Protime)PT. 12.2 SECONDS (11.7-14.9)
[2019-12-10 09:24] LABS: Partial Thromboplast Time 32.2 Seconds (24.1-36.2)
[2019-12-16] VITALS (7 sets, daily range): BP systolic 123–140; BP diastolic 74–96; PULSE 58–88; RESP 16–18; TEMP 36.4–37.2; O2SAT 92–97; BMI 31.7
[2019-12-16] MEDS: Lactated Ringers 1,000 ML 100 ML IV ×2 (06:39→10:05)
[2019-12-16] MEDS: Mupirocin Ointment 22gm Tube 1 APPLIC (08:28)
[2019-12-16] MEDS: Oxymetazoline 0.05% 1 SPRAY SPRAY.BTL 15 SPRAY (08:29)
--- NOTE | 2019-12-16 10:18 | DCINST_ITS ---
You will use the following diet at home:: No restrictions Discharge Activity: May not drive while taking narcotic pain medications. Call your doctor if your incision/area has: Increased Pain/ Swelling Additional Dressing/Incision Instructions:: sleep with head of bed elevated. spray saline into both nostrils 5 times daily. mupirocin ointment to the incision and into the nostrils twice daily. keep the bridge of your nose dry. however, the morning of your follow up appointment, get your nose very wet so the cast comes off in the office easily. Allergies/Adverse Reactions: Allergies poison lisandro extract Allergy (Verified 12/16/19 06:24) Unknown tree and shrub pollen Allergy (Verified 12/16/19 06:24) Unknown acetaminophen [From Percocet] Adverse Reaction (Verified 12/16/19 06:24) Other HALLUCINATIONS gluten Adverse Reaction (Verified 12/16/19 06:24) Pain in joints lactase [From Dairy Aid] Adverse Reaction (Verified 12/16/19 06:24) Pain in joints oxycodone [From Percocet] Adverse Reaction (Verified 12/16/19 06:24) Other HALLUCINATIONS Medications to take at Discharge Levothyroxine [Synthroid] 100 mcg PO DAILY 05/21/13 Citalopram [Celexa] 20 mg PO DAILY 07/13/16 Loratadine [Claritin] 10 mg PO DAILY 07/13/16 Potassium Citrate [Potassium Citrate ER] 30 meq PO DAILY 01/18/18 Triamterene/Hydrochlorothiazid [Triamterene-Hctz 37.5-25 mg Cp] 1 ea PO DAILY 01/18/18 linaclotide 290 mcg capsule 290 mcg PO QODAY 10/28/18 Methylphenidate HCl [Concerta] 18 mg PO DAILY 12/08/19 Montelukast Sodium [Singulair] 10 mg PO QHS 12/08/19 Omeprazole [Prilosec] 20 mg PO DAILY 12/08/19 Primary Care Physician: Gayle Merino DO [Primary Care Provider] - Test Results: Test results from this visit will be discussed in further detail at your follow- up appointment, if applicable. Please Follow Up With: Vitor Ariza MD When: 1 week
--- NOTE | 2019-12-16 10:25 | PCM.OPRPT ---
Problem List (1) Acquired nasal deformity Status: Chronic (2) Nasal congestion Status: Chronic (3) Nasal valve collapse Status: Chronic (4) Nasal turbinate hypertrophy Status: Chronic (5) Nasal septal deviation Status: Chronic Report of Operation Date of Procedure: 12/16/19 Pre-Operative Diagnosis: 1. nasal congestion. 2. nasal septal deviation. 3. internal nasal valve collapse, right and left. 4. inferior turbinate hypertrophy, right and left. 5. aquired nasal deformity Post-Operative Diagnosis: 1. nasal congestion. 2. nasal septal deviation. 3. internal nasal valve collapse, right and left. 4. inferior turbinate hypertrophy, right and left. 5. aquired nasal deformity Surgery/Procedure Performed:: 1. open septorhinoplasty. 2. submucous resection inferior turbinates, right and left. 3. correction internal nasal valve collapse, right and left Type of Anesthesia:: General Description of Procedure: on the day of the procedure, after appropriate informed consent was obtained the patient was brought to the operating room and placed in supine position on the operating table. she was placed under general endotracheal anesthesia by the anesthesiologist. the endotracheal tube was secured, the eyes were taped. the table was rotated 90 degrees toward the surgeon. the nose was injected with lidocaine/epinephrine. the face was prepped and draped. an inverted v columellar incision was made with a conf[place] blade. this was taken into left and right marginal incisions with three point retraction and an iris scissor. the left and right lower lateral cartilages were skeletonized as was the scroll region and upper lateral cartilages. the medial crura were lateralized and the anterior septal angle was located. submucoperichondrial flaps were raised on the left then right using a jonathan elevator. these were taken posteriorly to the bony/cartilaginous junction and inferiorly to the maxillary crest. numerous fracture lines were seen in the cartilaginous septum. the left and right upper lateral cartilages were disarticulated from the nasal septum using a 15 blade. a 1.5 cm L-strut was demarcated on the cartilaginous septum and the remainder was removed with a D knife and jonathan elevator. deviated portions of the perpendicular plate of the ethmoid and vomer were removed with a iglesia yanes. a large right-sided septal spur was removed with the jonathan. 8mm x 2mm internal virtualization consultant grafts were sutured between the nasal septum and the upper lateral cartilages on the left then right with 4-0 PDS in multiple areas. a flaring stitch was placed with 4-0 PDS as well. a 6mm x 2 mm columellar strut graft was sutured between the medial crura for tip support and nasal stability. the head of the right and left inferior turbinates were injected with lidocaine/epinephrine. the head of the right inferior turbinate was incised with a 15 blade. this was dissected submucosally with a jonathan elevator, reduced using suction electrocautery and outfractured using a boies elevator. the head of the left inferior turbinate was incised with a 15 blade. this was dissected submucosally with a jonathan elevator, reduced using suction electrocautery and outfractured using a boies elevator. the submucoperichondrial flaps were closed with 4-0 chromic at multiple points. the inverted V columellar incision was closed with 7-0 vicryl. the latera trocar system was set up and loaded. the left vestibular skin was entered and the trocar was advanced deep to the skin and soft tissue envelope, then deep to the periosteum. the implant was deployed in the correct area at the pre-measured external points. the right vestibular skin was entered and the trocar was advanced deep to the skin and soft tissue envelope, then deep to the periosteum. the implant was deployed in the correct area at the pre-measured external points. velez splints were sutured into place and a dorsal nasal splint was placed. the table was rotated 90 degrees toward the anesthesiologist where she was extubated uneventfully. she was taken to the post anesthesia care unit in stable condition.
== END 2019-12-16 11:44 | disposition home or self-care (01) ==
LOC: SDC 06:06 → AC 06:06
PROVIDERS: Anesthesiology; PCP Family Medicine; Referring Provider Otolaryngology; Visit Provider Otolaryngology
PROC: (CPT 30140; principal; 2019-12-16 07:15)
DX: J34.2 Deviated nasal septum (principal); J34.3 Hypertrophy of nasal turbinates; M95.0 Acquired deformity of nose; Z11.59 Encounter for screening for other viral diseases; I10 Essential (primary) hypertension; E06.9 Thyroiditis, unspecified; K21.9 Gastro-esophageal reflux disease without esophagitis; G47.30 Sleep apnea, unspecified; G25.81 Restless legs syndrome; Z87.442 Personal history of urinary calculi; Z79.899 Other long term (current) drug therapy
CPT/HCPCS: 00160; 30140; 30465; 30520; 36415; 80076; 84443; 85027; 85610; 85730; 87635; 93005; 94799; J7120; J2405; U0003

== ENCOUNTER 2020-02-02 08:38 | Outpatient (RCR) | payer OTHER, SELFPAY ==
[2019-12-16 06:30] VITALS: BMI 31.7
== END 2020-02-04 23:59 ==
LOC: EMPH 08:38
PROVIDERS: PCP Family Medicine; Visit Provider Family Medicine Geriatric Medicine
DX: Z11.59 Encounter for screening for other viral diseases (principal)
CPT/HCPCS: 87635; U0003

== ENCOUNTER 2020-03-04 08:30 | Outpatient (RCR) | payer OTHER, SELFPAY ==
[2019-12-16 06:30] VITALS: BMI 31.7
[2020-02-26 16:09] VITALS: BMI 32.3
== END 2020-03-06 23:59 ==
LOC: EMPH 08:30
PROVIDERS: PCP Family Medicine; Visit Provider Family Medicine Geriatric Medicine
DX: Z03.818 Encounter for observation for suspected exposure to other biological agents ruled out (principal)
CPT/HCPCS: 87426

== ENCOUNTER 2020-03-31 15:56 | Outpatient (RCR) | payer OTHER, SELFPAY ==
[2020-02-26 16:09] VITALS: BMI 32.3
== END 2020-04-05 23:59 ==
LOC: EMPH 15:56
PROVIDERS: PCP Family Medicine; Visit Provider Family Medicine Geriatric Medicine
DX: Z03.818 Encounter for observation for suspected exposure to other biological agents ruled out (principal)
CPT/HCPCS: 87426

== ENCOUNTER → 2020-04-12 16:01 | Outpatient (CLI) | payer OTHER, SELFPAY ==
[2020-02-26 16:09] VITALS: BMI 32.3
--- NOTE | 2020-04-12 16:02 | BI_ITS ---
MAMMOGRAPHY - BILATERAL SCREENING REASON FOR EXAM: Female, 49 years old. Routine annual screening examination. PERTINENT HISTORY: Non-contributory. TECHNIQUE: Digital bilateral breast federico (3D mammographic acquisition) in the CC and MLO projections. 2-D mediolateral oblique (MLO) and craniocaudad (CC) views of both breasts were obtained. CAD: Full Field Digital Mammography with Computer Added Detection was performed. COMPARISON: Comparison is made with prior study dated 07/24/2018 and 12/20/2006. FINDINGS: Breast Composition: The breasts are heterogeneously dense, which may obscure small masses. There are no dominant masses or suspicious calcifications. Stable benign-appearing bilateral axillary lymph nodes. No other significant abnormalities are identified. There has been no significant change since the prior study. BI/SCREEN MAMM (CAD) W/FEDERICO BILAT IMPRESSION: Stable bilateral screening mammogram. Yearly follow-up mammogram recommended. (A) ASSESSMENT CATEGORY: BIRADS Category 2: Benign. A letter regarding these results will be sent to the patient by the facility within 30 days. Approximately 10% of breast cancers are not detected by mammography. A normal mammogram should not delay biopsy of a clinically suspicious abnormality. [id number] Electronically Signed: Orlando Razo, at 8:14 EST , Service support ,
== END ==
PROVIDERS: PCP Family Medicine; Referring Provider Obstetrics & Gynecology; Visit Provider Obstetrics & Gynecology
DX: Z12.31 Encounter for screening mammogram for malignant neoplasm of breast (principal)
CPT/HCPCS: 77063; 77067

== ENCOUNTER 2020-05-05 14:21 | Outpatient (RCR) | payer OTHER, SELFPAY ==
[2020-02-26 16:09] VITALS: BMI 32.3
== END 2020-05-06 23:59 ==
LOC: EMPH 14:21
PROVIDERS: PCP Family Medicine; Visit Provider Family Medicine Geriatric Medicine
DX: Z03.818 Encounter for observation for suspected exposure to other biological agents ruled out (principal)
CPT/HCPCS: 87426

== ENCOUNTER 2020-06-01 15:06 | Outpatient (RCR) | payer OTHER, SELFPAY ==
[2020-02-26 16:09] VITALS: BMI 32.3
== END 2020-06-06 23:59 ==
LOC: EMPH 15:06
PROVIDERS: PCP Family Medicine; Referring Provider Family Medicine Geriatric Medicine; Visit Provider Family Medicine Geriatric Medicine
DX: Z03.818 Encounter for observation for suspected exposure to other biological agents ruled out (principal)
CPT/HCPCS: 87426

== ENCOUNTER 2020-06-08 12:59 | Outpatient (RCR) | payer OTHER, SELFPAY ==
[2020-02-26 16:09] VITALS: BMI 32.3
[2020-06-08 08:35] LABS: Probe Check PASS; Specimen Processing Control PASS
== END 2020-07-04 23:59 ==
LOC: EMPH 12:59
PROVIDERS: PCP Family Medicine; Referring Provider Family Medicine Geriatric Medicine; Visit Provider Family Medicine Geriatric Medicine
DX: Z03.818 Encounter for observation for suspected exposure to other biological agents ruled out (principal)
CPT/HCPCS: 87635; U0002

== ENCOUNTER → 2020-07-01 06:06 | Outpatient (CLI) | payer OTHER, SELFPAY ==
[2020-02-26 16:09] VITALS: BMI 32.3
--- NOTE | 2020-07-01 06:29 | RAD_ITS ---
STUDY: X-RAY - PELVIS AND RIGHT HIP REASON FOR EXAM: Female, 49 years old. c/o rt hip pain, nki -- ? IT band syndrome, r/o calcifiic tendinitis TECHNIQUE: 3 views of the pelvis and hip. COMPARISON: None. FINDINGS: There is a non-specific bowel gas pattern. Normal visualized soft tissue structures. Normal bilateral iliac wings, sacroiliac joints and visualized sacrum. Normal bilateral superior and inferior pubic rami. Normal pubic symphysis. Normal bilateral ischial tuberosities. Normal visualized femoral head. Normal acetabulum. Normal hip joint. RAD/HIP, UNI W/ Pelvis 2-3 Views IMPRESSION: Normal x-ray examination of the pelvis and hip. Electronically Signed: Orlando Razo MD at 9:17 EST , Service support ,
== END ==
PROVIDERS: PCP Family Medicine; Visit Provider Family Medicine
DX: M79.604 Pain in right leg (principal)
CPT/HCPCS: 73502

== ENCOUNTER 2020-07-06 14:51 | Outpatient (RCR) | payer OTHER, SELFPAY ==
[2020-02-26 16:09] VITALS: BMI 32.3
--- NOTE | 2020-07-07 14:46 | HP.PTEVAL_ITS ---
Patient's Visit Information MANJULA SAUCEDA is a 49 year old F referred to Physical Therapy by Dr. Fitz Herr DO with a diagnosis of R hip pain. Date of Evaluation: 07/06/20 Physical Therapist: Vishal Saavedra DPT - Visit Plan Frequency: 2x /Week Duration: 4 Weeks Plan: Start with IT band and piriformis stretching. Add in glute medius and glute josiah strengthening to increase stability and reduce over use of TFL. - Subjective Pt. is here today for her initial evaluation with diagnosis of R hip pain. She reports having pain for ~6 weeks now. No SHERICE. 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 Increased pain: walking, standing, flexing/extending hip, IE bending forward or stairs. Pt. isolates pain at lateral R hip at greater trochanter region. Pt. does have increased pain after working a 12 hour shift. She has started back to kick boxing as exercises at his noticing some hip pain as well. Pain started prior to starting this exercise. No medications or injections. No xrays completed. Pt. is hopeful to reduce symptoms in order to get back to all recreational and work activities without limitations. - Pain R hip Pain Intensity (Out of 10): 3 Pain Intensity Range: 1, 6 - Objective POSTURE: Pt. has decent posture in stance. Slight flexion noted of lumbar spine. Pt. has normal iliac crest heights (symmetrical). PALPATION: Pt. has tenderness at posterior aspect of greater trochanter. tenderness at piriformis muscle attachement, but not at piriformis muscle belly. Pt. had no tenderness at TFL muscle belly or glute med muscle belly. NEURO: Normal sensation throughout BLEs. Normal 2+ DTR of bilateral achilles and patellar tendons, bilaterally. Pt. is able to rise on heels and toes without issues. ROM: Pt. has normal B ankle and knee ROM without increase in symptoms. R hip, full motion, no increase in symptoms with scour testing. Normal HS length, tigthness noted at IT band. L normal. MMT: RLE- ankle/knee 5/5 throughout; hip- flexion 4+/5, abd 4/5 increase NW, ext 4/5, IR 4/5, ER 4+/5. GAIT: Pt. ambulates with a slight antalgic patten during R stance phase. She has contralateral hip drop as well druign R stance phase (most likely due to pain and sligth weakness). STAIRS: pt. has marked R hip weakness wtih ascending and descending of R lateral hip resulting in R knee valgus positoning and contralateral hip drop. - Special Tests R Hip Scour: Negative R Hip AC - Intraarticular Pathology: Negative R Hip FADDIR - Labrum: Negative R Hip Impingement Provocation - Labrum: Negative R Hip Trendelenberg - Glut Medius: Positive R Hip Gaurav - IT Band: Positive Comment: slight positive trandelenburg, not a large sign - Goals Goal 1:: LTG: Pt. to be I with HEP for R hip stretching and glute medius and josiah strengthening. Goal Time Frame: 4-6 Weeks Goal 2:: STG: Pt. to be able to walk unlimited distances without increase in symptoms. Goal Time Frame: 2-4 Weeks Goal 3:: LTG: Pt. to negotiate 1 flight of steps with 1 HR with reciprocal pattern without increase in R hip pain. Goal Time Frame: 4-6 Weeks Goal 4:: STG: Pt. to have negative Obers test, indicating normal IT band length. Goal Time Frame: 2-4 Weeks Goal 5:: LTG: Pt. to have increased glute medius and glute josiah strength increased by 1/2 grade. Goal Time Frame: 4-6 Weeks - Rehabilitation Potential Physical Therapy Diagnosis: Pt. has signs and symptoms consistent with R hip pain. Most likely due to IT band syndrome resulting in greater trochanteric bursitis. Pt. has slight tightness in ITB (TFL), slight tightness with piriformis muscle belly as well. She has marked glute med and glute max weakness as well. She would benefit from PT to adress the above limitations progressing back to all recreational and work activities without limitations. Rehabilitation Potential: Excellent - Anticipated Interventions Patient/Client Instruction: Educate patient on: Condition, Plan of Care, Risk Factors, Benefits of Fitness Program For the Purpose of:: To improve decision making, To facilitate caregiver knowledge, To improve self management, To prevent re-injury, To improve ability to perform tasks related to life management, To improve tolerance to ADL's Therapeutic Exercise to Include: Strength training, Power training, Endurance training, Body mechanics, Postural training, Flexibilty training, Passive ROM, Active ROM, Dynamic Lumbar Stabilization For the Purpose of:: To decrease pain, To decrease swelling/inflammation, To increase ROM, To improve nutrient delivery to tissue, To increase oxygenation perfusion, To improve muscle performance and motor function, To improve ability to perform ADL's, To improve health of tissue, To decrease soft tissue restriction, To increase flexibility/ROM IF ES: Yes Cryotherapy (ice pack, ice massage): Yes Thermo therapy (hot pack): Yes Ultrasound (thermal/non thermal): Yes For the Purpose of:: To decrease pain, To decrease swelling/inflammation, To increase ROM, To improve nutrient delivery to tissue, To increase oxygenation perfusion, To improve muscle performance and motor function, To improve ability to perform ADL's Thank you for the opportunity to evaluate your patient. For Medicare and Medicare HMO plans, please review the plan of care and approve it. It will need to be FAXED BACK to us at [phone] for Medicare purposes. For Medicare only, by signing this I certify the plan of care. Please let me know if there are questions or concerns regarding this plan of care. Physician Signature: Date:
== END 2020-07-06 19:00 | disposition home or self-care (01) ==
LOC: PT 14:51
PROVIDERS: PCP Family Medicine; Referring Provider Family Medicine; Visit Provider Family Medicine
DX: M76.30 Iliotibial band syndrome, unspecified leg (principal)
CPT/HCPCS: 97110; 97161

== ENCOUNTER 2020-12-30 11:58 | Outpatient (RCR) | payer OTHER, SELFPAY ==
[2020-02-26 16:09] VITALS: BMI 32.3
== END 2021-01-04 23:59 ==
LOC: EMPH 11:58
PROVIDERS: PCP Family Medicine; Referring Provider Family Medicine Geriatric Medicine; Visit Provider Family Medicine Geriatric Medicine
DX: Z03.818 Encounter for observation for suspected exposure to other biological agents ruled out (principal)
CPT/HCPCS: 87426

== ENCOUNTER → 2021-01-12 09:35 | Outpatient (CLI) | payer OTHER, SELFPAY ==
[2020-02-26 16:09] VITALS: BMI 32.3
[2021-01-12 10:56] LABS: Thyroid Stim Hormone (TSH) 0.26 uIU/mL (0.358-3.74)
== END ==
PROVIDERS: PCP Family Medicine; Referring Provider Family Medicine; Visit Provider Family Medicine
DX: Z00.00 Encounter for general adult medical examination without abnormal findings (principal); E03.9 Hypothyroidism, unspecified
CPT/HCPCS: 36415; 84439; 84443

== ENCOUNTER → 2021-02-17 13:06 | Outpatient (CLI) | payer OTHER, SELFPAY ==
[2021-02-17 13:41] LABS: Erythrocyte Sedimentation Rate 27 mm/hr (0-30)
[2021-02-17 14:25] LABS: CRP 7.85 mg/L (0.0-3.0); Rheumatoid Factor < 10.0 IU/mL (<15)
[2021-02-21 09:07] LABS: ANTINUCLEAR ANTIBODIES DIRECT Negative (Negative)
[2021-02-22 08:06] LABS: CCP IgG Antibodies 9 units (0-19)
== END ==
PROVIDERS: PCP Family Medicine; Referring Provider Family Medicine; Visit Provider Family Medicine
DX: M19.90 Unspecified osteoarthritis, unspecified site (principal)
CPT/HCPCS: 36415; 85652; 86038; 86140; 86200; 86225; 86235; 86431

== ENCOUNTER → 2021-02-24 15:59 | Outpatient (CLI) | payer OTHER, SELFPAY ==
--- NOTE | 2021-02-24 16:00 | US_ITS ---
STUDY: THYROID ULTRASOUND REASON FOR EXAM: Female, 50 years old. RECHECK SMALL LFT NODULE TECHNIQUE: Ultrasound evaluation of the thyroid was performed with real-time and static witt-scale imaging. COMPARISON: 07/29/2018 FINDINGS: RIGHT LOBE: The right lobe of the thyroid gland measures 3.5 x 1.5 x 1.2 cm. There is a heterogeneous echotexture. There are no demonstrated solid, cystic or complex lesions. LEFT LOBE: The left lobe of the thyroid gland measures 2.8 x 0.9 x 1.2 cm. There is a homogeneous echotexture. Nodule 1: Shrinking 5 x 4 x 5 mm (from 8 x 6 x 6 mm) solid hypoechoic wider than tall ill-defined marginated nodule with no echogenic foci (TR 4) in the posterior left lobe consistent with a tiny adenoma. ISTHMUS: The isthmus measures 1 mm thick. . The regional lymph nodes are normal. US/Thyroid IMPRESSION: Thyroiditis with shrinking adenoma in the left lobe. Electronically Signed: Alex Kingston MD at 17:51 EDT Tel , Service support ,
== END ==
PROVIDERS: PCP Family Medicine; Referring Provider Family Medicine; Visit Provider Family Medicine
DX: E04.1 Nontoxic single thyroid nodule (principal)
CPT/HCPCS: 76536

== ENCOUNTER 2021-05-05 07:17 | Outpatient (RCR) | payer OTHER, SELFPAY ==
[2021-01-05 00:13] VITALS: BMI 32.3
== END 2021-05-06 23:59 ==
LOC: EMPH 07:17
PROVIDERS: PCP Family Medicine; Referring Provider Family Medicine Geriatric Medicine; Visit Provider Family Medicine Geriatric Medicine
DX: Z03.818 Encounter for observation for suspected exposure to other biological agents ruled out (principal)
CPT/HCPCS: 87635; U0003; U0005

== ENCOUNTER → 2021-10-17 | Outpatient (CLI) | payer OTHER, SELFPAY ==
--- NOTE | 2021-10-17 15:35 | RAD_ITS ---
STUDY: XR Knee Complete 4 Views or More 10/17/2021 4:09 PM REASON FOR EXAM: Female, 51 years old. LEFT KNEE INJURY, PAIN TECHNIQUE: XR Knee Complete 4 Views or More LEFT COMPARISON: None FINDINGS: Normal visualized distal femur. Normal visualized proximal tibia and fibula. Normal proximal tibiofibular articulation. Normal medial femorotibial compartment. Normal lateral femorotibial compartment. Normal patellofemoral articulation. There is a moderate volume joint effusion. The soft tissue structures are unremarkable. RAD/Knee 4 or More Views IMPRESSION: There is a moderate volume joint effusion. Electronically Signed: Keith Clemons MD at 16:09 EDT ,
== END | disposition home or self-care (01) ==
LOC: RAD 15:28
PROVIDERS: PCP Family Medicine; Visit Provider Family Medicine
DX: M25.562 Pain in left knee (principal)
CPT/HCPCS: 73564

== ENCOUNTER → 2021-10-26 | Outpatient (CLI) | payer OTHER, SELFPAY ==
--- NOTE | 2021-10-26 18:15 | MRI_ITS ---
STUDY: MRI LEFT KNEE REASON FOR EXAM: Anterior left knee pain, unable to bend knee completely, left knee injury 10/16/2021. TECHNIQUE: Standardized fat and water weighted pulse sequences were obtained in all 3 orthogonal planes. COMPARISON: Radiographs 10/17/2021. FINDINGS: There is a very small vertical tear of the articular surface of the posterior horn of the medial meniscus (proton-density sagittal image 16). Normal hyaline cartilage of the medial femorotibial compartment. There are bone contusions of the posterior aspect of the medial and lateral tibial plateau (T2 coronal images 11-14). There is a mild sprain of the superficial fibers of the medial collateral ligament (T2 coronal image 17). Normal distal semimembranosus, gracilis and semitendinosus tendons. There is a complex tear of the posterior horn of the lateral meniscus (proton-density coronal image 12; proton-density sagittal images 27-29). Normal hyaline cartilage of the lateral femorotibial compartment. There is a subchondral bone contusion of the lateral femoral condyle (T2 sagittal images 17, 18). Normal proximal tibiofibular articulation. There is a sprain of the lateral collateral ligament (T2 coronal image 13). Normal popliteus tendon. Normal biceps femoris tendon. There is a complete tear of the proximal/mid anterior cruciate ligament (T2 sagittal image 13). Normal posterior cruciate ligament (PCL). There is mild lateral subluxation of the patella (T2 axial image 11). Normal hyaline cartilage of the patellofemoral compartment. Normal medial and lateral patellar retinaculum. Normal quadriceps tendon. Normal patellar tendon. Normal Hoffa''s fat pad. There is a [id number] sized joint effusion with mild extravasation of fluid. There is a thin medial patellar plica. There is edema in the subcutis adipose space. The otherwise visualized osseous structures are unremarkable. MRI/Lower Ext Joint Only (Routine) IMPRESSION: Anterior cruciate ligament tear. Sprains of the lateral collateral and medial collateral ligaments. Lateral meniscal tear. Very small medial meniscal tear. Bone contusions of the medial and lateral tibial plateau and lateral femoral condyle. Mild lateral subluxation of the patella. Joint effusion with mild extravasation of fluid. Electronically Signed: Jonnie Samano MD at 9:54 EDT ,
== END | disposition home or self-care (01) ==
LOC: MRI 17:49
PROVIDERS: PCP Family Medicine; Referring Provider Family Medicine; Visit Provider Family Medicine
DX: S83.242A Other tear of medial meniscus, current injury, left knee, initial encounter (principal); M25.562 Pain in left knee
CPT/HCPCS: 73721

== ENCOUNTER 2021-11-08 08:11 | Day surgery (SDC) | payer OTHER, SELFPAY ==
[2021-11-08 08:25] VITALS: BP 135/84; PULSE 58; RESP 16; TEMP 36.4; O2SAT 97; BMI 32.2
--- NOTE | 2021-11-08 08:29 | PCM.HP.BLA ---
History and Physical Date of Admission: 11/08/21 [facility] [address] [place] [address] OFFICE VISIT Date of Service:? 10/31/21 MR#: [id number] Acct: [id number] Name:MANJULA BRUNO Rep #: [id number] : 1970 ? ? Provider: Dr. Dylan Gilman, DO Age/Sex:? 51/F ? ? Location: [facility] [place] Status: Signed Intake Vital Signs ? 12/21/2106:26 10/31/2210:07 Height 5 ft 3 in 5 ft 3 in Weight: ? 179 lb 4 oz BMI ? 31.7 Intake Visit Reasons:?LEFT KNEE Chief Complaint: Sinus/chest congestion Is patient in pain?: Yes (Left Knee) Pain scale (1-10): 3 Allergies poison lisandro extract Allergy (Verified 10/31/21 11:14) Unknowntree and shrub pollen Allergy (Verified 10/31/21 11:14) Unknownacetaminophen [From Percocet] Adverse Reaction (Verified 10/31/21 11:14) Othergluten Adverse Reaction (Verified 10/31/21 11:14) Pain in jointslactase [From Dairy Aid] Adverse Reaction (Verified 10/31/21 11:14) Pain in jointsoxycodone [From Percocet] Adverse Reaction (Verified 10/31/21 11:14) Other Medications levothyroxine 88 mcg tablet 100 mcg PO DAILY 05/21/13 [History Confirmed 10/31/21] citalopram 20 mg tablet 20 mg PO DAILY 07/13/16 [History Confirmed 10/31/21] potassium citrate 10 mEq (1,080 mg) tablet,extended release 30 meq PO DAILY 01/18/18 [History Confirmed 10/31/21] triamterene 37.5 mg-hydrochlorothiazide 25 mg capsule 1 ea PO DAILY 01/18/18 [History Confirmed 10/31/21] montelukast 10 mg tablet 10 mg PO QHS 12/08/19 [History Confirmed 10/31/21] omeprazole 20 mg capsule,delayed release 20 mg PO DAILY 12/08/19 [History Confirmed 10/31/21] dextroamphetamine-amphetamine ER 20 mg 24hr capsule,extend release (Adderall XR) 20 mg PO DAILY 02/26/20 [History Confirmed 10/31/21] linaclotide 290 mcg capsule 290 mcg PO QODAY PRN 02/26/20 [History Confirmed 10/31/21] furosemide 40 mg tablet 40 mg PO 10/31/21 [History Confirmed 10/31/21] levocetirizine 5 mg tablet (Xyzal) 5 mg PO DAILY 10/31/21 [History Confirmed 10/31/21] [facility] Medical History? Arthritis Back pain Bruises easily CHILD Fatigue Heel spur History of kidney stones HTN (hypertension) Plantar fasciitis Thyroid disease Surgical History? H/O: hysterectomy History of lithotripsy S/P rhinoplasty Status post laser ablation of incompetent vein Family History? Other CHF (congestive heart failure) Cancer Heart disease Hypertension Obesity S/P triple vessel bypass Thyroid disorder Social History? Smoking Status:? Never smoker alcohol intake:? current substance use type:? does not use caffeine:? Yes what type of physical activity do you participate in:? none seatbelt use:? always do you feel safe at home:? Yes additional social history:? 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 Dylan Gilman, DO 10/31/21 2736. MANJULA SAUCEDA is a NEW patient referral from Dr. Herr. she is a 51 year old F here today for Left knee injury. Patient states that on 10/16/21 she hopped off her deck onto uneven ground and states that she hyperextended and buckled her knee. States that she did not fall from the injury but did fall later that day when her knee gave out on her. She states that she saw Dr. Herr on 10/17/21 and he ordered xray of her left knee. Dr. Nemesio velásquez ordered an MRI which revealed an ACL tear, a lateral meniscus tear, and a small medial meniscus tear. Patient was then referred to our office. Patient states that she is able to walk on her knee and is using a soft brace that she bought at a pharmacy. Patient rates pain as a 3/10 only with movement. States that her daughter was tested for Emilie Danlos syndrome and does have and they believe she has it also? but has never been tested for it. Denies any new popping or snapping in her left knee. Denies numbness, tingling or other associated symptoms. ROS Skin/Breast Reports rash Ortho Exam General General: Yes no acute distress Neurologic: Yes alert and Yes oriented x3 Psychologic: Yes reasonable and appropriate Right Knee Patella Translation: 1 Left Knee Skin/Wound: No ecchymosis, No erythema and Yes swelling 2+: Effusion Knee ROM: Yes ROM-Extension -20 to 0 (-15) and Yes ROM-Flexion 0-140 (85) Examination: Yes med jt line tenderness, Yes Lat jt line tenderness, Yes Pain with flexion and No TTP Patellar tendon Stability: NML: Posterior Drawer, NML: Valgus 0, NML: Valgus 30, NML: Varus 0, NML: Varus 30, NML: Dial 90 and NML: Dial 30 and 2+: Anterior Drawer and 2+: Ambreen Apprehension with Lateral Translation: No Patella Translation: 1 KNEE: no patellar instability symmetrical dial test she does not have pain with cruciate or collateral stress Supplemental Info 10/26/2021 MRI left knee: Complex tear posterior horn lateral meniscus, small vertical tear posterior horn medial meniscus, superficial sprain of the MCL mild sprain LCL bone contusions consistent with ACL rupture lateral femoral condyle lateral tibial plateau ACL rupture midsubstance lateral patellar tracking small medial plica Coding Level of Care Code 00707 Assessment and Plan Plan Details Additional Comments: Question was had with Manjula in regards to her diagnosis and treatment option plan.? We did asked discussed extensively conservative versus surgical options risk benefits and alternatives of both.? She does have a ACL tear which is likely near full-thickness as well as a complex posterior horn lateral meniscus tear and a small posterior horn medial meniscus tear we did discuss arthroscopic surgery and options for partial meniscectomy versus repair, she is likely not a candidate for a meniscal repair due to the complex nature of the tear however we discussed that if it was indeed repairable the modification of the postoperative recovery of nonweightbearing for 6 weeks and restrictions for 3 to 4 months and she does not wish to undertake that type of recovery.? In regards to the ACL rupture we did discuss reconstruction versus rehab.? Did explain to her that there is potential for compensation with rehab with quad and hamstring training.? At this point she is not really having much instability or significant pain with it.? We discussed doing the reconstruction during the arthroscopic procedure for her meniscus versus holding off on this bigger procedure for now and seeing how she rehabs.? She understands risk benefits alternatives of both options and wishes to proceed with only the arthroscopic meniscal surgery at this time for partial meniscectomy.? We will start physical therapy immediately afterwards for ACL compensation in addition we did provide a hinged brace that she will wear for 6 weeks to help treat the collateral sprains of the MCL and LCL. ?Risks and benefits of the procedure were fully explained, including but not limited to infection, neurovascular injury, continued pain, arthritis, stiffness, need for further surgery, re-injury, DVT, PE, general risks of anesthesia, and loss of limb or life. The patient understands all the risks and does wish to proceed with written consent. Recommend wearing a hinge brace on the left knee until surgery. Patient can continue to work while wearing the brace until surgery. Recommend getting patient into physical therapy as soon as possible to learn exercises for ACL. Follow up 2 weeks postop or sooner if pain, swelling, numbness or associated symptoms, or concerns develop.? All questions answered. Patient in agreement of plan. 10/31/21 1317 <Electronically signed by Dylan Gilman DO> Date Dylan Gilman DO Cosigner Signature: Date (if applicable) I have examined the patient the following changes are noted: Patient does wish to proceed with meniscal repair if it is repairable she understands postoperative restrictions of 6 weeks of toe-touch weightbearing she does not wish to have her ACL reconstructed
[2021-11-08] MEDS: Lactated Ringers 1,000 ML 15 ML IV (08:31)
[2021-11-08] MEDS: Cefazolin 2 GM in 0.9% Normal Saline 100 ML IV (09:00)
[2021-11-08] MEDS: Epinephrine (1 mg/ml) 1 MG/ML VIAL (09:30)
[2021-11-08] MEDS: Lidocaine 1% /Epi 1:100 (20ml) 20 ML Vial (09:30)
[2021-11-08] MEDS: Bupivacaine Mpf 0.5% 30 ML VIAL (09:53)
[2021-11-08] MEDS: MethylPREDNISolone Acetate 40 MG/ML Vial IM (09:53)
--- NOTE | 2021-11-08 10:00 | OP.PCM_ITS ---
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 Anesthesia: General Estimated blood loss: 5 mL Tourniquet time: 30 minutes 300 mmHg Complications: none Indication for procedure: 51-year-old female patient who had an injury jumping off of a deck, she did have mechanical knee pain and MRI evidence of ACL rupture medial lateral meniscal tears as well as MCL and LCL sprains, we discussed surgical nonsurgical options including ACL reconstruction for which the patient did not wish to undergo at her age she did however wish to proceed with arthroscopic meniscal surgery meniscectomy versus repair she understood the different postoperative expectations and the comp sequences of having a meniscal tear on the cartilage health of the knee, she was having swelling and mechanical symptoms the patient did wish to proceed with an elective arthroscopic surgery to attempt to alleviate the symptoms. Risk benefits and alternatives of the procedure were reviewed including risk of bleeding infection nerve artery tissue damage need for further surgery continued pain and expected postoperative course. Procedure: The patient was met in the preoperative holding area. The operative extremity was identified by both patient and physician and family and marked. Patient was brought back to the operating room on a wheeled cart and transferred to the operating table in the supine position. Anesthesia was started. A well-padded tourniquet was placed on the operative extremity. A lower extremity leg jones was secured to the operative extremity. The contralateral extremity was well-padded and the end of the bed was flexed to 90 degrees. The patient was prepped and draped in the usual sterile fashion. A timeout was called to ensure the proper patient, procedure, and extremity were being contemplated. 0.5% Marcaine with epinephrine was injected into the planned incisional areas under the skin only. An Esmarch was used to exsanguinate the extremity and the tourniquet was inflated. An 11 blade scalpel was used to make a stab incision in the anterior lateral portal. The arthroscope was inserted into the intercondylar notch and inflow and outflow tubes were attached. Arthroscopic visualization began. The medial compartment was entered. An 18-gauge spinal needle was used to establish the placement for anterior medial portal. An 11 blade scalpel was used to make a stab incision. Blunt probe was inserted followed by a meniscal probe. Upon evaluation there was a small undersurface tear of the posterior horn of the medial meniscus horizontal in nature with use of arthroscopic biting instruments and a shaver partial medial meniscectomy was performed the ACL was torn about 80% there was a piece that was entering the lateral compartment which was debrided of note on examination under anesthesia prior to the start of the case there was a negative pivot shift and firm endpoint this must be related to the residual fibers that are attached. The lateral compartment was entered complex tearing of the posterior horn of the lateral meniscus and a small radial tear of the body of the lateral meniscus with the use of arthroscopic biting instruments and rk and ArthroCare wand a partial lateral meniscectomy was performed. A good rim of meniscal tissue was remaining stable upon probing and the root was attached, there was residual horizontal tearing in the posterior horn that was stable upon the completion of the procedure the arthroscope was switched to the medial portal to complete the procedure. The medial and lateral gutters were inspected and were free of loose bodies. The patellofemoral joint was inspected and had some grade II chondromalacia there was a medial plica band which was excised. There was good patellar tracking. The knee was thoroughly irrigated and drained. An intra- articular injection with 5 cc 0.5% Marcaine plain and 40 mg of Depo-Medrol was injected intra-articularly. The arthroscope was removed the portals were closed with 3-0 nylon arthroscopic stitches. Followed by Xeroform 4 x 4's ABDs web roll and an Gustavo wrap. The tourniquet was let down and the drapes were removed. All counts were correct. The patient was brought back to the PACU in stable condition.
--- NOTE | 2021-11-08 10:05 | DCINST_ITS ---
Discharge Instructions Dressing / Incision Additional Dressing/Incision Instructions:: Ice and elevate next 72 hours .keep dressing on clean and dry for 48 hours then may remove begin showering daily but do not submerge in tub or pool for 3 weeks. After shower may apply Band-Aids . Encourage knee range of motion. Remain toe-touch weightbearing with crutches until you are able to apply and wear hinged knee brace , you likely cannot fit this over top of your Gustavo wrap dressing so in 48 hours when the dressing is removed and replace with Band-Aids place knee brace and then may begin weightbearing as tolerated , use crutches until confident in knee then may discontinue. No strenuous activity. When not ambulating keep iced and elevated next 72 hours. Do not mix pain medication with recreational drugs or alcohol only take as prescribed can be addictive and abusive. May use Tylenol and OTC NSAID such as ibuprofen or Aleve as substitute if pain allows only take narcotic if needed, call with any questions or concerns. Follow Up Care Please Follow Up With: Dylan Gilman DO When: 2 weeks Test Results: Test results from this visit will be discussed in further detail at your follow- up appointment, if applicable. Discharge Plan Admission Attending Provider: Dylan Gilman Primary Care Provider: Gayle Merino Discharge Orders/Prescriptions Prescriptions: New hydrocodone-acetaminophen 5-325 mg tablet 1 tab PO Q4H PRN (Reason: pain) 5 Days Qty: 20 0RF Rx Instructions: Supplement with OTC NSAID to minimize use. No Action dextroamphetamine-amphetamine [Adderall XR] 20 mg capsule,extended release 24hr 20 mg PO DAILY furosemide 40 mg tablet 40 mg PO PRN PRN (Reason: Edema) Label Comments: TAKE 1 TABLET BY MOUTHHONCE DAILY NEEDED FOR EDEMA levocetirizine [Xyzal] 5 mg tablet 5 mg PO DAILY levothyroxine 88 MCG tablet 100 mcg PO DAILY linaclotide 290 mcg capsule 290 mcg PO QODAY PRN (Reason: Cramps) citalopram 20 MG tablet 20 mg PO DAILY triamterene-hydrochlorothiazid 1 EACH capsule 1 ea PO DAILY potassium citrate 10 MEQ tablet extended release 30 meq PO DAILY montelukast 10 MG tablet 10 mg PO QHS famotidine [Pepcid] 20 mg Tablet 20 mg PO PRN PRN (Reason: Indigestion) Referrals / Follow Up: Gayle Merino DO [Primary Care Provider] - Disposition Disposition (needs filled in before D/C Order can be placed): Home, Self Care
[2021-11-08 10:10] VITALS: BP 122/85; BP 135/84; PULSE 77; RESP 16; TEMP 36.3; O2SAT 92
[2021-11-08 10:15] VITALS: BP 115/79; BP 135/84; PULSE 74; RESP 16; O2SAT 100
[2021-11-08 10:30] VITALS: BP 117/84; BP 135/84; PULSE 78; RESP 16; O2SAT 100
[2021-11-08 11:14] VITALS: BP 135/84; BP 154/100; PULSE 62; RESP 16; TEMP 36.3; O2SAT 98
== END 2021-11-08 11:28 | disposition home or self-care (01) ==
LOC: SDC 08:12 → AC 08:13
PROVIDERS: PCP Family Medicine; Visit Provider Orthopaedic Surgery
PROC: (CPT 29870; principal; 2021-11-08 09:30)
DX: S83.272A Complex tear of lateral meniscus, current injury, left knee, initial encounter (principal); I10 Essential (primary) hypertension; E07.9 Disorder of thyroid, unspecified; Z79.899 Other long term (current) drug therapy; Z87.442 Personal history of urinary calculi; F32.A Depression, unspecified; F90.9 Attention-deficit hyperactivity disorder, unspecified type; S83.242A Other tear of medial meniscus, current injury, left knee, initial encounter; S83.512A Sprain of anterior cruciate ligament of left knee, initial encounter; M22.42 Chondromalacia patellae, left knee; M67.52 Plica syndrome, left knee
CPT/HCPCS: 29880; 01400; J7120; J2405

== ENCOUNTER 2021-11-23 14:43 | Outpatient (RCR) | payer OTHER, SELFPAY | END 2021-12-04 23:59 | LOC: NS 14:43 | PROVIDERS: PCP Family Medicine; Visit Provider Family Medicine | DX: Z71.3 Dietary counseling and surveillance (principal); E66.9 Obesity, unspecified; Z68.32 Body mass index [BMI] 32.0-32.9, adult | CPT/HCPCS: 97802 ==

== ENCOUNTER 2021-11-28 14:30 | Outpatient (RCR) | payer OTHER, SELFPAY ==
--- NOTE | 2021-11-03 14:50 | HP.PTEVAL ---
Patient's Visit Information MANJULA SAUCEDA is a 51 year old F referred to Physical Therapy by Dr. Dylan Gilman DO with a diagnosis of ACL and Meniscal Prehab. Date of Evaluation: 11/03/21 Physical Therapist: Kaylynn Samson DPT - Visit Plan Frequency: 2x /Week Duration: 6 Weeks Plan: Prehab for ACL/Meniscal Surgery 11/08/21. HEP Given IE: quad set, SLR - Subjective Patient report that October 16 she jumped off her deck and hyperextended her left knee. She felt her knee slide and then its buckled and was painful. Went to see Dr. Bonner and did x-rays first- then MRI which showed a couple of tears. She basically blew out her knee. She is having surgery November 08 for meniscus with possible repair or clean out and ACL not to repair. She is wearing a brace on the left knee- she does not love it and doesn't feel that it fits well. Worst: 4/10 Agg: turning Eases: getting off of it Best: 0/10. Pain is located in the middle of the knee joint- deep inside. Describes the pain as dull and achy. No radiating pain. No N/T in toes. No loss of change of bowel or bladder. Wanted her to come here for prehab strength. She has very little pain at this point. 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 Sleep: not disturbed- but will feel uncomfortable when she bends it. PMHx/Meds: see list - Objective Posture: FH, RS- can correct but does not maintain. Gait: slightly antalgic- decreased stance on the left LE with poor heel/toe due to lack of ROM. Stairs: asc/desc 8 recip asc but step to desc SLS: 10 sec then LOB increased muscle activity and sway HR/TR: able without pain but poor balance. Palpation: tender along lateral joint line and medial joint line. ROM: 15-100 degrees- pain at end range flexion and extension. Strength: Core: fair plus Hip: 4/5 Knee: Flexion: 39 Extn: 49 Ankle: 5/5. Flex: HS: mild Gastroc:mild, Quad:mild. - Balance/Special Test Scores Lower Extremity Functional Score: 52 - Goals Goal 1:: Patient will be I with HEP and progression Goal Time Frame: 4-6 Weeks Goal 2:: Patient will ambulate >300 feet with a normalized gait patteern Goal Time Frame: 4-6 Weeks Goal 3:: Patient will asc/desc 8 stairs recip Goal Time Frame: 4-6 Weeks - Rehabilitation Potential Physical Therapy Diagnosis: Patient presents with hypermobility- she has decreased LE ROM, core and LE strength/stabilization and muscular endurance leading to abnormal gait pattern and increased pain with ADL's. Rehabilitation Potential: Good - Anticipated Interventions Patient/Client Instruction: Educate patient on: Benefits of Fitness Program Therapeutic Exercise to Include: Strength training, Endurance training, Balance training, Coordination, Agility training, Body mechanics, Postural training, Flexibilty training, Gait and locomotor training, Neuromotor development, Dynamic Lumbar Stabilization, Scapular Strength/Stabilization For the Purpose of:: To improve muscle performance and motor function TENS: Yes Cryotherapy (ice pack, ice massage): Yes Thermo therapy (hot pack): Yes Ultrasound (thermal/non thermal): Yes Thank you for the opportunity to evaluate your patient. For Medicare and Medicare HMO plans, please review the plan of care and approve it. It will need to be FAXED BACK to us at [phone] for Medicare purposes. For Medicare only, by signing this I certify the plan of care. Please let me know if there are questions or concerns regarding this plan of care. Physician Signature: Date:
--- NOTE | 2021-11-14 13:23 | HP.PTDCSUM ---
It has been my pleasure to treat MANJULA SAUCEDA referred by Dr. Dylan Gilman DO, with the diagnosis of ACL and Meniscal Prehab for a total of 2 visit(s). Discharge Date: Please see the following information for a summary of their discharge status. Subjective: Patient reports ACL was still intact by fibers and MD did a meniscal clean out. Goes back to see him on the . Patient reports that she has no pain. When she walked around a lot she had pain- Worst 5/10 achy- but once she rested she was pain free within 60 min. Objective/Function: Posture: good throughout. Gait: no deviation noted Stairs: asc/desc 8 recip with no HR SLS: 15 sec HR/TR: able without pain. Palpation: not tender to touch. ROM: 0-125 degrees Strength: Core: fair plus Hip: 4/5 Knee: Flexion: 55 Extn: 72 Ankle: 5/5. Flex: HS: mild Gastroc:mild, Quad:mild. Stairs: asc/desc 8 recip with no HR Goal 1:: Patient will be I with HEP and progression Goal Progress: Goal Met Goal 2:: Patient will ambulate >300 feet with a normalized gait patteern Goal Progress: Goal Met Goal 3:: Patient will asc/desc 8 stairs recip Goal Progress: Goal Met Plan: No ACL repair- meniscal clean out- no restrictions. Prehab for ACL/Meniscal Surgery 11/08/21 If there are questions or concerns regarding this patient's physical therapy, please feel free to call me at [phone]. Thank you for the referral of this patient. Sincerely, Kaylynn Samson, KATET Balance/Gait/Functional tests - Balance/Special Test Scores Lower Extremity Functional Score: 60
--- NOTE | 2022-04-06 08:02 | HP.PT.NRP ---
MANJULA SAUCEDA was seen in my office for initial evaluation on 11/03/21. The following Plan of Care was established for this patient: Initial Frequency: 2x /Week Initial Duration: 6 Weeks Patient/Client Instruction: Educate patient on: Benefits of Fitness Program Therapeutic Exercise to Include: Strength training, Endurance training, Balance training, Coordination, Agility training, Body mechanics, Postural training, Flexibilty training, Gait and locomotor training, Neuromotor development, Dynamic Lumbar Stabilization, Scapular Strength/Stabilization For the Purpose of:: To improve muscle performance and motor function TENS: Yes Cryotherapy (ice pack, ice massage): Yes Thermo therapy (hot pack): Yes Ultrasound (thermal/non thermal): Yes This patient was last seen in our office . Pertinent comments regarding their Physical therapy will appear below: Patient is having surgery- d/c to new chart At this point I will be discontinuing this patient from physical therapy. I would be happy to see this patient again in the future if found appropriate by the physician. Thank you! Kaylynn Samson, KATET Balance/Gait/Functional tests - Balance/Special Test Scores Lower Extremity Functional Score: 60
== END 2021-11-28 19:00 | disposition home or self-care (01) ==
LOC: PT 14:30
PROVIDERS: PCP Family Medicine; Referring Provider Orthopaedic Surgery; Visit Provider Orthopaedic Surgery
DX: S83.512D Sprain of anterior cruciate ligament of left knee, subsequent encounter (principal); X58.XXXD Exposure to other specified factors, subsequent encounter
CPT/HCPCS: 97164; 97530

== ENCOUNTER 2021-12-21 14:30 | Outpatient (RCR) | payer OTHER, SELFPAY | END 2022-01-04 23:59 | LOC: NS 14:30 | PROVIDERS: PCP Family Medicine; Referring Provider Family Medicine; Visit Provider Family Medicine | DX: Z71.3 Dietary counseling and surveillance (principal); E66.9 Obesity, unspecified; Z68.32 Body mass index [BMI] 32.0-32.9, adult | CPT/HCPCS: 97803 ==

== ENCOUNTER → 2022-02-23 | Outpatient (CLI) | payer OTHER, SELFPAY ==
--- NOTE | 2022-02-23 17:47 | MRI_ITS ---
STUDY: MRI LEFT KNEE REASON FOR EXAM: Female, 51 years old. Pain. Surgery November 08, 2021. TECHNIQUE: Standardized fat and water weighted pulse sequences were obtained in all 3 orthogonal planes. COMPARISON: October 26, 2021 FINDINGS: There is truncation with partial meniscectomy of the posterior horn, series 6 image 14. Normal hyaline cartilage of the medial femorotibial compartment. Normal medial femoral condyle. There is marrow edema of the posterior medial tibial plateau. There is a partial sprain of the MCL with interstitial and periligamentous edema. Normal distal semimembranosus, gracilis and semitendinosus tendons. There is truncation with partial meniscectomy and irregularity suggesting lateral meniscus tear of the posterior horn, series 3 images through . Normal hyaline cartilage of the lateral femorotibial compartment. There is reactive marrow edema of the lateral femoral condyle and posterior-lateral tibial plateau. Normal proximal tibiofibular articulation. Normal lateral collateral (fibular) ligament. Normal popliteus tendon. Normal biceps femoris tendon. There is rupture and tear of the anterior cruciate ligament (ACL), series 3 images and . Normal posterior cruciate ligament (PCL). Normal congruent patellofemoral articulation. Normal hyaline cartilage of the patellofemoral compartment. Normal medial and lateral patellar retinaculum. Normal quadriceps tendon. Normal patellar tendon. Normal Hoffa''s fat pad. There is a moderate volume joint effusion. The soft tissues are unremarkable. The otherwise visualized osseous structures are unremarkable. MRI/Lower Ext Joint Only (Routine) IMPRESSION: Anterior cruciate ligament tear. Medial and lateral meniscectomies. Irregularity suggesting tearing of the lateral meniscus. Medial collateral ligament sprain. Contusions of the femur and tibia. Joint effusion. Electronically Signed: Farzad Ann MD at 23:35 EDT ,
== END | disposition home or self-care (01) ==
LOC: MRI 17:47
PROVIDERS: PCP Family Medicine; Visit Provider Orthopaedic Surgery
DX: S89.92XA Unspecified injury of left lower leg, initial encounter (principal); M25.362 Other instability, left knee; Z98.890 Other specified postprocedural states
CPT/HCPCS: 73721

== ENCOUNTER 2022-03-14 09:50 | Day surgery (SDC) | payer OTHER, SELFPAY ==
--- NOTE | 2022-03-10 06:34 | EKG12_ITS ---
Test Reason : PREOP Blood Pressure : / mmHG Vent. Rate : 063 BPM Atrial Rate : 063 BPM P-R Int : 134 ms QRS Dur : 086 ms QT Int : 434 ms P-R-T Axes : 045 004 031 degrees QTc Int : 444 ms Normal sinus rhythm Normal ECG When compared with ECG of 10-DEC-2019 06:39, No significant change was found Confirmed by DUNIA ZIMMER, ELIJAH ([id number]), production editor BARRIE MORENO ([id number]) on 03/11/2022 7:23:32 AM Referred By: Enrique Houston Confirmed By:ELIJAH DUQUE MD
[2022-03-10 07:31] LABS: Hematocrit 41.3 % (37-47); Hemoglobin 14.5 g/dL (12.0-15.0); Mean Corp Hgb Conc 35.1 g/dL (32-36); Mean Corpuscular Hgb 30.9 pg (27.0-32.0); Mean Corpuscular Volume 87.9 fL (81-99); Mean Platelet Vol. 9.1 fl (6.2-12.0); Platelet Count 295 K/mm3 (150-450); RBC Distribution Width CV 12.9 % (11.6-14.6); RBC Distribution Width SD 41.2 fl (35.1-43.9); White Blood Count 8.4 K/mm3 (4.4-11.0)
[2022-03-10 07:48] LABS: International Normalized Ratio 0.9; Prothrombin Time (Protime)PT. 12.3 SECONDS (11.7-14.9)
[2022-03-10 07:49] LABS: Partial Thromboplast Time 28.6 Seconds (24.1-36.2)
[2022-03-10 08:24] LABS: AST(SGOT) 22 U/L (15-37); Alanine Aminotransfer ALT/SGPT 29 U/L (13-56); Albumin, Serum 3.6 g/dL (3.2-5.0); Alkaline Phosphatase 112 U/L (45-117); Anion Gap 7 (5-15); BUN 11 mg/dL (7-18); BUN/Creat Ratio 12.5 RATIO (10-20); Bilirubin, Direct 0.09 mg/dL (0.00-0.30); Chloride 101 mmol/L (98-107); Creatinine, Serum 0.88 mg/dL (0.55-1.02); EST Glomerular Filtration Rate 73 mL/min (>60); Est Glom Filt Rate - Afr Amer 88 mL/min (>60); Globulin 4.4 g/dL (2.2-4.2); Glucose 84 mg/dL (74-106); Potassium 3.9 mmol/L (3.5-5.1); Sodium Level 135 mmol/L (136-145); Thyroid Stim Hormone (TSH) 2.33 uIU/mL (0.358-3.74)
[2022-03-14 10:14] VITALS: BP 126/93; PULSE 65; RESP 16; TEMP 36.4; O2SAT 99; BMI 32.0
[2022-03-14] MEDS: Lactated Ringers 1,000 ML 15 ML IV (10:22)
--- NOTE | 2022-03-14 11:05 | PCM.HP.BLA ---
History and Physical Date of Admission: 03/14/22 [facility] [address] [place] [address] OFFICE VISIT Date of Service:? 02/15/22 MR#: [id number] Acct: [id number] Name:MANJULA BRUNO Rep #: [id number] : 1970 ? ? Provider: Dr. Dylan Gilman, DO Age/Sex:? 51/F ? ? Location: [facility] [place].[facility] Status: Signed Intake Vital Signs ? 12/21/2214:24 Height 5 ft 3 in Intake Visit Reasons:?LEFT KNEE Allergies poison lisandro extract Allergy (Verified 02/15/22 10:20) Unknowntree and shrub pollen Allergy (Verified 02/15/22 10:20) Unknownacetaminophen [From Percocet] Adverse Reaction (Verified 02/15/22 10:20) Othergluten Adverse Reaction (Verified 02/15/22 10:20) Pain in jointslactase [From Dairy Aid] Adverse Reaction (Verified 02/15/22 10:20) Pain in jointsoxycodone [From Percocet] Adverse Reaction (Verified 02/15/22 10:20) Other Medications levothyroxine 88 mcg tablet 100 mcg PO DAILY 05/21/13 [History Confirmed 02/15/22] citalopram 20 mg tablet 20 mg PO DAILY 07/13/16 [History Confirmed 02/15/22] potassium citrate 10 mEq (1,080 mg) tablet,extended release 30 meq PO DAILY 01/18/18 [History Confirmed 02/15/22] triamterene 37.5 mg-hydrochlorothiazide 25 mg capsule 1 ea PO DAILY 01/18/18 [History Confirmed 02/15/22] montelukast 10 mg tablet 10 mg PO QHS 12/08/19 [History Confirmed 02/15/22] dextroamphetamine-amphetamine ER 20 mg 24hr capsule,extend release (Adderall XR) 20 mg PO DAILY 02/26/20 [History Confirmed 02/15/22] linaclotide 290 mcg capsule 290 mcg PO QODAY PRN Cramps 02/26/20 [History Confirmed 02/15/22] furosemide 40 mg tablet 40 mg PO PRN PRN Edema 10/31/21 [History Confirmed 02/15/22] levocetirizine 5 mg tablet (Xyzal) 5 mg PO DAILY 10/31/21 [History Confirmed 02/15/22] famotidine 20 mg tablet (Pepcid) 20 mg PO PRN PRN Indigestion 11/04/21 [History Confirmed 02/15/22] hydrocodone-acetaminophen 5-325mg 5mg-325mg 1 tab PO Q4H PRN pain 5 days #20 tabs 11/08/21 [Rx Confirmed 02/15/22] PFSH Medical History? ADHD (attention deficit hyperactivity disorder) Alcohol use Anemia Arthritis BiPAP (biphasic positive airway pressure) dependence Bruises easily Depression Fatigue Heartburn History of edema History of kidney stones HTN (hypertension) Non-smoker Plantar fasciitis Shortness of breath on exertion Thyroid disease Surgical History? H/O: hysterectomy History of lithotripsy S/P rhinoplasty Status post laser ablation of incompetent vein Family History? Other CHF (congestive heart failure) Cancer Heart disease Hypertension Obesity S/P triple vessel bypass Thyroid disorder Social History? Smoking Status:? Never smoker alcohol intake:? current substance use type:? does not use caffeine:? Yes what type of physical activity do you participate in:? none seatbelt use:? always do you feel safe at home:? Yes additional social history:? 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 Dylan Gilman, DO 02/15/22 0804. MANJULA SAUCEDA is a 51 year old F here today for her left knee.? Patient was doing very well prior to this event on Sunday. states that she was chasing her granddaughter Sunday02/11/22 down a hill and when she she went to stop herself from running her knee buckled but she said that it buckled.? doesn't know what to do to stop it from buckling. She wears a brace because she feels that it helps keep her more stable and is afraid to walk without it. She does have swelling. States that when she is wearing the brace she doesn't have any pain. She does have a bump on her knee as well that she states is tight. She states that she was doing well after surgery until 02/11/22. She states that her knee gave out and this caused her to fall. Denies any mechanical knee pain. 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 Ortho Exam General General: Yes no acute distress Neurologic: Yes alert and Yes oriented x3 Psychologic: Yes reasonable and appropriate Left Knee Skin/Wound: Yes CDI, Yes ecchymosis, No erythema and Yes swelling Homans Sign: No Knee ROM: Yes ROM-Extension -20 to 0 and No ROM-Flexion 0-140 (90) Examination: No med jt line tenderness, No Lat jt line tenderness and No Amanda's Test Stability: NML: Posterior Drawer, NML: Valgus 0, NML: Valgus 30, NML: Varus 0 and NML: Varus 30 and 3+: Anterior Drawer and 3+: Ambreen KNEE: faint joint effusion Supplemental Info 10/26/2021 MRI left knee: Complex tear posterior horn lateral meniscus, small vertical tear posterior horn medial meniscus, superficial sprain of the MCL mild sprain LCL bone contusions consistent with ACL rupture lateral femoral condyle lateral tibial plateau ACL rupture midsubstance lateral patellar tracking small medial plica Coding Level of Care Code Off vis,est,level 3 Diagnoses Hx of arthroscopy of left knee? Z98.890 Instability of left knee joint? M25.362 Left knee injury? S89.92XA Assessment and Plan Assessment and Plan (1) Hx of arthroscopy of left knee: ?Status:?Acute (2) Instability of left knee joint: ?Status:?Acute (3) Left knee injury: ?Status:?Acute ? ? ? Orders: Orders Lower Ext Joint Only (Routine) Today M25.362 - Other instability, left knee, S89.92XA - Unspecified injury of left lower leg, initial encounter, Z98.890 - Other specified postprocedural states ? Plan Patient educated that during her fall she leoncio the joint and more than likely tore the remaining ACL fibers as there does appear to be full thickness tear on examination. The fall could have caused inflammation of the left knee which is causing the effusion. Treatment options are do nothing or ACL bracing or steroid injection or PT for ACL compensation or ACL reconstruction. She states that she wishes to proceed with the left knee ACL reconstruction. She will need PT post operatively and it can be 1 year prior to returning to divorce360ions activity. She will need a new MRI d/t her recent injury. We will order the MRI of the left knee. She will also need a post operative ACL brace which we will send information to [facility]. Risk benefits alternatives of surgery reviewed including risk of bleeding infection nerve artery tissue damage need for further surgery continued pain postoperative stiffness and expected postoperative course, we discussed using a cadaver allograft which was her preference in the wrist that, with that.? Do not feel there is any further meniscal pathology based on examination but would like to know in advance prior to proceeding surgically with MRI. Follow up over the phone after MRI or sooner if pain, swelling, numbness or associated symptoms, or concerns develop.? All questions answered. Patient in agreement of plan. 02/15/22 [id number] <Electronically signed by Dylan Gilman DO> Date Dylan Gilman DO I have examined the patient and the H&P has been reviewed. There are no clinical changes since date of exam.
[2022-03-14] MEDS: Cefazolin 2 GM in 0.9% Normal Saline 100 ML IV (11:12)
[2022-03-14] MEDS: Lidocaine 2% /Epi 1:100 (20ml) 20 ML VIAL (11:29)
[2022-03-14] MEDS: Epinephrine (1 mg/ml) 1 MG/ML VIAL (11:31)
[2022-03-14] MEDS: Bupivacaine 0.25% 30 ML Vial (13:05)
--- NOTE | 2022-03-14 13:10 | OP.PCM_ITS ---
Operative Report Date of Procedure: 03/14/22 Preoperative diagnosis: Left knee ACL rupture Postoperative diagnosis: ACL rupture plus degenerative complex tear posterior horn medial meniscus Procedure: Arthroscopic ACL reconstruction all inside with semitendinosus 3 sutured allograft partial medial meniscectomy Implants: Arthrex ACL buttons allograft Semitindinosis Anesthesia: General postoperative femoral block EBL: 15 Complications: None Condition: Stable to PACU Indication for procedure: 51-year-old female patient who has had history of Emilie-Danlos who had injury to her left knee and had a previous near complete ACL rupture and medial meniscus lateral meniscus tea, she previously had arthroscopy for partial medial partial lateral meniscectomy and she did not want to go ACL reconstruction at the time she has subsequently had instability events and now wishes to proceed with an ACL reconstruction she does request allograft which is appropriate for her age. Discussed operative versus nonoperative intervention risk benefits and alternatives were reviewed including risk of bleeding infection nerve, artery, bone, tissue damage, blood clot need for further surgery and continued pain. Expected postoperative course postoperative physical therapy needs Procedure: Patient was met in the preoperative holding area. Once again the operative extremity was identified by both patient and physician and was marked. Patient was met by anesthesia and brought back to the operating room on a wheeled cart and transferred to the operating table in the supine position. Anesthesia was started. A well-padded tourniquet was placed on the right upper thigh. A right lower extremity leg jones was placed. The left lower extremity was well-padded the end of the bed was flexed to 90 degrees. The patient was prepped and draped in the usual sterile fashion and a timeout was called to ensure the proper patient procedure and extremity were being contemplated. Arthroscopic portals were injected with 0.25 % marcaine with epinephrine in the skin only. An Esmarch was used to exsanguinate the extremity and the tour niquet was inflated to 300 mmHg. [ On the back table the allograft was prepared and was sized as an 9 diameter. 11 blade scalpel was used to make a stab incision in the anterior lateral portal and the arthroscope was inserted into the intercondylar notch inflow and outflow tubes were attached and arthroscopic visualization began. The medial compartment was entered and 18-gauge gauge spinal needle was used to establish an anterior medial portal both portals from the previous surgery were able to be used there was some fraying and horizontal component to the posterior horn medial meniscus which was abraded with a shaver the small radial tear as well the intercondylar notch was entered the stump of the ACL was found and was debrided and the footprints were prepared on the femoral and tibial side with a shaver and ArthroCare wand. The lateral compartment was entered and prior posterior meniscectomy was visualized with no further tearing. The patellofemoral space was investigated and was free of pathology. At this point the arthroscope was repositioned into the medial portal and the femoral guide was used and set at 110 degrees and with the use of a flip cutter the femoral tunnel was made in the low posterior position the tunnel measured 34 mm. At this point a fiber stick was inserted through the cannula and was retrieved through the lateral portal and hemastated it to itself for later use. Attention was then turned towards the tibial tunnel and once again with the use of a flip cutter set at 60 degrees the tibial tunnel was cut in a retrograde manner, ending up with 30 mm. Once again used a fiber stick to pass sutures through the tunnel into the notch this was retrieved through the medial portal and hemostatic to itself. This point we were ready to pass the graft we tensioned it on the back table and sized it to a size 9. We passed the femoral sutures through the medial portal and then used them to pass the details of FiberWire of our button and graft through the medial portal and into the notch and femoral tunnel first we placed the button on the lateral cortex of the femur by marking on the FiberWire the appropriate tunnel of then feeling the button flipped. We checked this to ensure it was on bone by pulling back with a rigid fixation. We then advanced our graft 20 mL in the femoral socket and then turned our attention to the tibial side in a similar manner past details through the tibial tunnel and had 25 mm in the tibial socket. We cycled the knee with tension on the tibial graft . we then placed our tibial button and then tensioned further on the femoral side until construct was fully tensioned we did cycle of the knee tension again with a posterior drawer force. We did use the graft link to secure additional fiber tapes these were tied over the tibial button in addition to the 2 FiberWire's that were used to suture the graft in the first place. We cut all of her tails thoroughly irrigated the incisions closed with 3-0 Vicryl and 3-0 Monocryl benzoin and Steri-Strips applied Xeroform 4 x 4 web roll ABD Gustavo wrap and a knee immobilizer she was transferred the PACU in stable condition all counts were correct where she received a femoral block she will wear her knee immobilizer during ambulation and in 3 days time we will remove her dressing and switch to an ACL brace. She will be counseled to avoid flexion past 90 degrees avoiding squats and lunges any deep knee bending and avoiding declination walking.
--- NOTE | 2022-03-14 13:16 | DCINST_ITS ---
Discharge Instructions Dressing / Incision Call your doctor if you observe: Shortness of breath and Chest pain Additional Dressing/Incision Instructions:: Ice and elevate next 72 hours .keep dressing on clean and dry for 78 hours, then may remove begin showering daily but do not submerge in tub or pool. After shower may apply Band-Aids , or light bandages if continues to drain which should be changed daily. Wear knee immobilizer during ambulation for the first 3 days postop then may switch to ACL brace which should be worn during ambulation at all times, but may be removed at rest. encourage knee range of motion weightbearing as tolerated, avoid squat lunge maneuvers and anything that puts stress to the through the knee in a flexed posture, use crutches until confident in knee then may discontinue. No strenuous activity. When not ambulating keep iced and elevated next 72 hours. Do not mix pain medication with recreational drugs or alcohol only take as prescribed can be addictive and abusive, call with any questions or concerns. Follow Up Care Please Follow Up With: Dylan Gilman DO When: 2 weeks Test Results: Test results from this visit will be discussed in further detail at your follow- up appointment, if applicable. Discharge Plan Admission Attending Provider: Dylan Gilman Primary Care Provider: Gayle Merino Consulting Providers: Enrique Houston Discharge Orders/Prescriptions Prescriptions: New hydrocodone-acetaminophen 5-325 mg tablet 1 - 2 tab PO Q4H PRN (Reason: pain) 5 Days Qty: 40 0RF aspirin 81 mg capsule 81 mg PO BID Qty: 42 0RF No Action furosemide 40 mg tablet 40 mg PO PRN PRN (Reason: Edema) Label Comments: TAKE 1 TABLET BY MOUTHHONCE DAILY NEEDED FOR EDEMA levocetirizine [Xyzal] 5 mg tablet 5 mg PO DAILY levothyroxine 88 MCG tablet 100 mcg PO DAILY linaclotide 290 mcg capsule 290 mcg PO QODAY PRN (Reason: Cramps) citalopram 20 MG tablet 20 mg PO DAILY triamterene-hydrochlorothiazid 1 EACH capsule 1 ea PO DAILY potassium citrate 10 MEQ tablet extended release 30 meq PO DAILY montelukast 10 MG tablet 10 mg PO QHS famotidine [Pepcid] 20 mg Tablet 20 mg PO PRN PRN (Reason: Indigestion) hydrocodone-acetaminophen 5-325 mg tablet 1 tab PO Q4H PRN (Reason: pain) 5 Days Qty: 20 0RF Rx Instructions: Supplement with OTC NSAID to minimize use. bupropion HCl [Wellbutrin SR] 150 mg Tablet Sustained-Release 12 Hr 150 mg PO DAILY cimetidine [Tagamet] 200 mg Tablet 200 mg PO DAILY PRN (Reason: Indigestion) Rx Instructions: administer with meals Vyvanse 60 mg capsule 60 mg PO DAILY Label Comments: 1 capsule orally daily inNthe morning Referrals / Follow Up: Gayle Merino DO [Primary Care Provider] - Disposition Disposition (needs filled in before D/C Order can be placed): Home, Self Care
[2022-03-14 13:22] VITALS: BP 126/93; BP 161/112; PULSE 85; RESP 16; TEMP 36.4; O2SAT 95
[2022-03-14 13:30] VITALS: BP 126/93; BP 140/104; PULSE 86; RESP 16; O2SAT 92
[2022-03-14 13:45] VITALS: BP 125/95; BP 126/93; PULSE 87; RESP 16; O2SAT 94
[2022-03-14 14:00] VITALS: BP 126/93; BP 132/85; PULSE 92; RESP 16; TEMP 36.7; O2SAT 97
[2022-03-14] MEDS: Cefazolin 1 GM/50 ML BAG IV (14:34)
[2022-03-14 15:15] VITALS: BP 126/93
== END 2022-03-14 15:25 | disposition home or self-care (01) ==
LOC: SDC 09:50 → AC 09:51
PROVIDERS: Anesthesiology; PCP Family Medicine; Referring Provider Orthopaedic Surgery; Visit Provider Orthopaedic Surgery
PROC: (CPT 29888; principal; 2022-03-14 10:55)
DX: M25.362 Other instability, left knee (principal); M22.42 Chondromalacia patellae, left knee; S83.512A Sprain of anterior cruciate ligament of left knee, initial encounter; S83.232A Complex tear of medial meniscus, current injury, left knee, initial encounter; F90.9 Attention-deficit hyperactivity disorder, unspecified type; F32.A Depression, unspecified; I10 Essential (primary) hypertension; E07.9 Disorder of thyroid, unspecified
CPT/HCPCS: 29888; 29881; 01400; 36415; 80048; 80076; 84443; 85027; 85610; 85730; 93005; C1713; J7120; J2405

== ENCOUNTER → 2022-03-31 | Outpatient (CLI) | payer OTHER, SELFPAY ==
--- NOTE | 2022-03-31 14:12 | RAD_ITS ---
STUDY: XR Knee 1 or 2 Views 03/31/2022 4:20 PM REASON FOR EXAM: Female, 51 years old. post-op -- 2 - views TECHNIQUE: XR Knee 1 or 2 Views LEFT COMPARISON: None FINDINGS: Normal visualized distal femur. Normal visualized proximal tibia and fibula. Normal proximal tibiofibular articulation. Evidence for ACL repair. Normal medial femorotibial compartment. Normal lateral femorotibial compartment. Normal patellofemoral articulation. The soft tissue structures are unremarkable. RAD/Knee 1 or 2 Views IMPRESSION: Successful ACR repair. Electronically Signed: Keith Clemons MD at 16:21 EST ,
--- NOTE | 2022-03-31 14:13 | RAD_ITS ---
STUDY: XR Hand Min 3 Views REASON FOR EXAM: Female, 51 years old. pain TECHNIQUE: XR Hand Min 3 Views LEFT COMPARISON: None. FINDINGS: Normal radiocarpal articulation. Normal distal radioulnar joint. Normal visualized carpal bones. Normal carpal articulations Normal carpometacarpal articulation of the thumb. Normal second through fifth carpometacarpal joints. Normal metacarpi. Normal metacarpophalangeal joint of the thumb. Normal interphalangeal joint of the thumb. Normal proximal and distal phalanges of the thumb. Normal metacarpophalangeal joints of the second through fifth fingers. Normal proximal and distal interphalangeal joints of the second through fifth fingers. Normal phalanges of the second through fifth fingers. The soft tissue structures are unremarkable. RAD/Hand Min 3 Views IMPRESSION: There are no acute findings. Electronically Signed: Keith Clemons MD at 16:22 EST ,
== END | disposition home or self-care (01) ==
LOC: MTRAD 14:12
PROVIDERS: PCP Family Medicine; Referring Provider Physician Assistant; Visit Provider Physician Assistant
DX: M79.642 Pain in left hand (principal); Z98.890 Other specified postprocedural states
CPT/HCPCS: 73130; 73560

== ENCOUNTER 2022-04-17 14:30 | Outpatient (RCR) | payer OTHER, SELFPAY | END 2022-04-17 14:31 | disposition home or self-care (01) | LOC: PT 14:30 | PROVIDERS: PCP Family Medicine; Referring Provider Orthopaedic Surgery; Visit Provider Orthopaedic Surgery | DX: Z98.890 Other specified postprocedural states (principal) ==

== ENCOUNTER → 2022-05-16 | Outpatient (CLI) | payer OTHER, SELFPAY ==
--- NOTE | 2022-05-16 09:04 | BI_ITS ---
MAMMOGRAPHY - BILATERAL SCREENING REASON FOR EXAM: Female, 51 years old. Routine annual screening examination. PERTINENT HISTORY: Non-contributory. TECHNIQUE: Digital bilateral breast federico (3D mammographic acquisition) in the CC and MLO projections. 2-D mediolateral oblique (MLO) and craniocaudad (CC) views of both breasts were obtained. CAD: Full Field Digital Mammography with Computer Added Detection was performed. COMPARISON: Comparison is made with prior study dated 04/12/2020 and 07/24/2018. FINDINGS: Breast Composition: The breasts are heterogeneously dense, which may obscure small masses. There are no dominant masses or suspicious calcifications. Stable small benign-appearing bilateral axillary lymph nodes. No other significant abnormalities are identified. There has been no significant change since the prior study. BI/SCRN MAMM (CAD)W/FEDERICO BILAT IMPRESSION: Stable bilateral screening mammogram. Yearly follow-up mammogram recommended. (A) ASSESSMENT CATEGORY: BIRADS Category 2: Benign. A letter regarding these results will be sent to the patient by the facility within 30 days. Approximately 10% of breast cancers are not detected by mammography. A normal mammogram should not delay biopsy of a clinically suspicious abnormality. [id number] Electronically Signed: Orlando Razo MD at 12:47 EST ,
--- NOTE | 2022-05-16 09:09 | BD_ITS ---
STUDY: DUAL ENERGY X-RAY ABSORPTIOMETRY / DXA REASON FOR EXAM: Female, 51 years old. [id number] TECHNIQUE: Bone Mineral Density (BMD) measurements of lumbar spine and bilateral hips were obtained. COMPARISON: None. FINDINGS: Lumbar Spine (L1-L4): g/cm2 (0.928) / T-score (-1.1) / Z-score (-0.4) Findings are suggestive of osteopenia with a low fracture risk. Left Femur Total: g/cm2 (0.940) / T-score (0.0) / Z-score (0.4) Left Femoral Neck: g/cm2 (0.767) / T-score (-0.7) / Z-score (0.0) Right Femur Total: g/cm2 (0.953) / T-score (0.1) / Z-score (0.5) Right Femoral Neck: g/cm2 (0.796) / T-score (-0.5) / Z-score (0.2) BD/Dexa Bone Density Study IMPRESSION: The patient is considered osteopenic as outlined below according to World Grant Organization (WHO) criteria with a low fracture risk. Reference Information: The T-score is the number of standard deviations above or below the standard which is normal for young adults at their peak bone mineral density. The World Health Organization (WHO) interprets the T-scores as follows: Above -1 Normal bone density Between -1 and -2.5 Osteopenia Equal to / or below -2.5 Osteoporosis As a practical clinical guideline, osteopenia may be graded as follows: Mild -1 through -1.5 Moderate -1.6 through -2.0 Severe -2.1 through -2.4 The Z-score is the number of standard deviations above or below age-matched controls. A Z-score of less than -1.5 would be considered abnormal. References: 1. NIH Osteoporosis and Related Bone Diseases www osteo.org 2. International Society for Clinical Densitometry www iscd.org 3. National Osteoporosis Foundation www nof.org Electronically Signed: Orlando Razo MD at 16:47 EST ,
== END | disposition home or self-care (01) ==
LOC: OPBD 09:02
PROVIDERS: PCP Family Medicine; Visit Provider Family Medicine
DX: Z12.31 Encounter for screening mammogram for malignant neoplasm of breast (principal); M85.80 Other specified disorders of bone density and structure, unspecified site; M81.0 Age-related osteoporosis without current pathological fracture
CPT/HCPCS: 77063; 77067; 77080

== ENCOUNTER 2022-06-08 12:30 | Outpatient (RCR) | payer OTHER, SELFPAY ==
--- NOTE | 2022-04-03 14:48 | HP.PTEVAL ---
Patient's Visit Information MANJULA SAUCEDA is a 51 year old F referred to Physical Therapy by Dr. Dylan Gilman DO with a diagnosis of s/p L ACL repair 03/14/22. 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 WBAT in brace. FES to L quad. Start with patellar mobs, knee ROM, quad stretch and rollout and strengthening to tolerance of L LE, gait training. Pt likely will need off work until at least Apr 19 due to delay in getting into therapy but maybe ready shortly thereafter depending on oprogress. - Subjective Jumped off deck mid October and hyperextended L knee and tore acl and meniscus. Cleaned up meniscus but ACL went again on Feb 11 chasing granddaughter and torn more meniscus and ACL. Laura replaced ACL with cadaver and mensicectomy on 03/14/22. Since then has been walking with brace on all the time and needs to keep it on until rehabbed. No aD needed. used crutches 4 days with immobilizer but now just brace. Pain level is 3/10 when on feet. She is comfortable sitting. Sleeping OK. taking alleve reguarly. Basic ADLs are getting done . Lifitn foot to get over tub is challenging but improving. Had shower chair the first week. No exercises for HEP, no ice needed any longer. 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 Is off until Apr 26. Wants to get back to work and kayak. Enjoys hiking. Wants to get back to that. - Pain L knee. Pain Intensity (Out of 10): 3 Pain Intensity Range: 0, 8 - Objective Walks into therapy without AD with barce on L knee donned and doffed I and walking I, stiffness apparent in L knee moreso with brace on then off. Able to walk well without brace but overemphasizes hip excursion. Steps not tested today as she is to only use R at this time. Transfers are I bed and chair. AROM R knee 2 hyperextension to 140. L knee -2 to 105 then 118 after heel slides. Hip and ankle aROM are WFL. mod tightness in quads and min in HS. quad set is able and SLR is tough without lag and weak but does it with great effrort. L Knee - Balance/Special Test Scores Lower Extremity Functional Score: 39 - Goals Goal 1:: ST: Full aROM L knee without pain or hesitation Goal Time Frame: 2-4 Weeks Goal 2:: ST : walk without gait deviations and steps reciprocally with one rail Goal Time Frame: 2-4 Weeks Goal 3:: LT community ambulation and stairs I without need for UE Goal Time Frame: 6-8 Weeks Goal 4:: Tolerating work without pain or swelling Goal Time Frame: 4-6 Weeks Goal 5:: Pt able to consider hiking as ex Goal Time Frame: 8-12 Weeks Goal 6:: I approp HEP to minimize future problems Goal Time Frame: 8-12 Weeks - Rehabilitation Potential Physical Therapy Diagnosis: knee stiffness and weakness s/p ACL repair Rehabilitation Potential: Good - Anticipated Interventions Patient/Client Instruction: Educate patient on: Condition, Plan of Care For the Purpose of:: To decrease pain, To increase ROM, To improve muscle performance and motor function, To increase tolerance to activity/condition/position, To improve ability of physical actions for home/community/work/leisure Therapeutic Exercise to Include: Strength training, Flexibilty training, Gait and locomotor training, Neuromotor development, Passive ROM, Active ROM For the Purpose of:: To decrease pain, To increase ROM, To improve nutrient delivery to tissue, To improve muscle performance and motor function, To increase tolerance to activity/condition/position, To improve ability of physical actions for home/community/work/leisure, To improve gait and locomotor functions Manual Therapy Techniques to Include: Mobilization, Passive ROM, Soft tissue mobilization For the Purpose of:: To decrease pain, To increase ROM Functional electric stimulation: Yes - quaad Cryotherapy (ice pack, ice massage): Yes For the Purpose of:: To decrease pain, To increase ROM, To improve muscle performance and motor function Thank you for the opportunity to evaluate your patient. For Medicare and Medicare HMO plans, please review the plan of care and approve it. It will need to be FAXED BACK to us at [phone] for Medicare purposes. For Medicare only, by signing this I certify the plan of care. Please let me know if there are questions or concerns regarding this plan of care. Physician Signature: Date:
--- NOTE | 2022-06-08 13:10 | HP.PTDCSUM ---
It has been my pleasure to treat MANJULA SAUCEDA referred by Dr. Dylan Gilman DO, with the diagnosis of s/p L ACL repair 03/14/22 for a total of 23 visit(s). Discharge Date: 06/08/22 Please see the following information for a summary of their discharge status. Subjective: 90% better. Squatting, running and many flights of steps still weak but not very painful. Pain is not an issue but does get painful down steps after works. Has not been a hike but feels like she could. Sleep is Ok. Doing full duty work and tired at end but tolerating well. No f/u with doctor. L knee. Pain Intensity (Out of 10): 0 % Improvement: 90 Objective/Function: 0-135 aROM B knees. Good flexibility(has [employer]), no pain. strength is 4 in extension 4 in flexion on L and similar on R side. Walking normal. Steps reciprocal without rail or pain today. Ready to work out on own and will do 3x/week in gym and f/u with doctor if needed. Goal 1:: ST: Full aROM L knee without pain or hesitation Goal Progress: Goal Met Goal 2:: ST : walk without gait deviations and steps reciprocally with one rail Goal Progress: Goal Met Goal 3:: LT community ambulation and stairs I without need for UE Goal Progress: Goal Met Goal 4:: Tolerating work without pain or swelling Goal Progress: Goal Met Goal 5:: Pt able to consider hiking as ex Goal Progress: Goal Met Goal 6:: I approp HEP to minimize future problems Goal Progress: Goal Met Plan: d/c Discharge Comments: will continue workout as member 3x/week and f/u with doctor if concerns(none right now) If there are questions or concerns regarding this patient's physical therapy, please feel free to call me at [phone]. Thank you for the referral of this patient. Sincerely, Enrique Johnson, DPT, OCS, CSCS Balance/Gait/Functional tests - Balance/Special Test Scores Lower Extremity Functional Score: 67
== END 2022-06-08 13:50 | disposition home or self-care (01) ==
LOC: PT 12:30
PROVIDERS: PCP Family Medicine; Referring Provider Orthopaedic Surgery; Visit Provider Orthopaedic Surgery
DX: Z98.890 Other specified postprocedural states (principal)
CPT/HCPCS: 97014; 97110; 97161; 97530; G0283

== ENCOUNTER → 2022-07-12 | Outpatient (CLI) | payer OTHER, SELFPAY ==
[2022-07-12 16:06] LABS: Absolute Lymphocyte Count 2.37 X10^3/uL (0.83-4.51); Absolute Neutrophil Count 4.1 X10^3/uL (2.0-7.7); Basophil# 0.04 X10^3/uL; Basophil% 0.5 % (0-1); Eosinophil# 0.34 X10^3/uL; Eosinophils% 4.5 % (0-5); Hematocrit 40.9 % (37-47); Hemoglobin 13.7 g/dL (12.0-15.0); Lymphocyte # 2.37 X10^3/ul (0.83-4.51); Lymphocyte % 31.6 % (19-41); Mean Corp Hgb Conc 33.5 g/dL (32-36); Mean Corpuscular Hgb 30.1 pg (27.0-32.0); Mean Corpuscular Volume 89.9 fL (81-99); Mean Platelet Vol. 9.5 fl (6.2-12.0); Monocyte# 0.64 X10^3/uL; Monocyte% 8.5 % (0-10); NRBC Flagged by Analyzer 0 % (0-5); Neutrophil # 4.09 X10^3/uL (2.7-7.7); Neutrophil % 54.5 % (47-70); Platelet Count 290 K/mm3 (150-450); RBC Distribution Width CV 12.6 % (11.6-14.6); RBC Distribution Width SD 41.1 fl (35.1-43.9); Red Blood Count 4.55 M/mm3 (4.2-5.4); White Blood Count 7.5 K/mm3 (4.4-11.0)
[2022-07-12 16:29] LABS: ALB/GLOB Ratio 0.9 RATIO (0.9-2.4); AST(SGOT) 25 U/L (15-37); Alanine Aminotransfer ALT/SGPT 26 U/L (13-56); Albumin, Serum 3.5 g/dL (3.2-5.0); Alkaline Phosphatase 102 U/L (45-117); Anion Gap 8 (5-15); BUN 16 mg/dL (7-18); BUN/Creat Ratio 17.2 RATIO (10-20); Calcium,Total 9.1 mg/dL (8.5-10.1); Chloride 104 mmol/L (98-107); Creatinine, Serum 0.93 mg/dL (0.55-1.02); EST Glomerular Filtration Rate 68 mL/min (>60); Est Glom Filt Rate - Afr Amer 82 mL/min (>60); Globulin 4.1 g/dL (2.2-4.2); Glucose 87 mg/dL (74-106); Potassium 3.7 mmol/L (3.5-5.1); Protein, Total 7.6 g/dL (6.4-8.2); Sodium Level 138 mmol/L (136-145)
[2022-07-12 16:52] LABS: Erythrocyte Sedimentation Rate 35 mm/hr (0-30)
[2022-07-14 15:08] LABS: Anti-Centromere B Ab <0.2 AI (0.0-0.9); Anti-Chromatin <0.2 AI (0.0-0.9); Anti-Jo <0.2 AI (0.0-0.9); Anti-Scleroderma-70 AB <0.2 AI (0.0-0.9); RNP Ab <0.2 AI (0.0-0.9); SJOGREN'S Anti-SS-A test < 0.2 AI (0.0-0.9); SJOGREN'S Anti-SS-B test < 0.2 AI (0.0-0.9); Smith Ab <0.2 AI (0.0-0.9)
[2022-07-14 15:25] LABS: Anti-dsDNA Ab 1 IU/mL (0-9)
[2022-07-14 16:09] LABS: Endomysial Antibody IgA Negative (Negative)
[2022-07-14 16:45] LABS: Immunoglobulin A 266 mg/dL (87-352); t-Transglutaminase IgA <2 U/mL (0-3)
[2022-07-16 22:06] LABS: Cytoplasmic Ab (C-ANCA) <1:20 titer (Neg:<1:20); Immunoglobulin A 266 mg/dL (87-352); Immunoglobulin E 38 IU/mL (6-495); Immunoglobulin G 1316 mg/dL (586-1602); Immunoglobulin M 85 mg/dL (26-217)
[2022-07-16 22:50] LABS: Perinuclear Ab (P-ANCA) <1:20 titer (Neg:<1:20)
== END | disposition home or self-care (01) ==
LOC: LAB 15:18
PROVIDERS: PCP Family Medicine; Visit Provider Nurse Practitioner Adult Health
DX: K21.9 Gastro-esophageal reflux disease without esophagitis (principal); R14.0 Abdominal distension (gaseous); R14.3 Flatulence; R14.2 Eructation; R13.10 Dysphagia, unspecified
CPT/HCPCS: 36415; 80053; 82784; 82785; 83516; 85025; 85652; 86140; 86225; 86235; 86255; 86256

== ENCOUNTER → 2022-08-09 | Outpatient (CLI) | payer OTHER, SELFPAY ==
--- NOTE | 2022-08-09 | TOBX_PTH ---
PATIENT: MANJULA SAUCEDA [facility]: [facility] U#:[id number] AGE/SX: 51/F ROOM: RE08/09/[address]: ASHLEY STEVENSON MD : 1970 BED: DIS: 08/09/2022 SPEC #: [id number] RECD: 08/09/22 12:40 STATUS: KIMBERLY REBjorn #: [id number] REGINALD: 08/09/22 00:[address]: ASHLEY STEVENSON DEPT: SURGICAL PATHOLOGY RECD BY: Storm Warren ENTERED: 08/09/22 12:40 SP TYPE: TONGUE BX OTHR DR: Dr. Gayle Merino DO Tissues: Tongue, NOS Procedures: Surgery Specimen Level IV HEADER OPERATION: Excisional biopsy of right lateral tongue PRE-OP DIAGNOSIS: Three-month history of right lateral tongue white lesion, ulceration, mild pain TISSUE SUBMITTED: Right lateral tongue MICROSCOPIC DIAGNOSIS Right lateral tongue lesion, biopsy: Acanthosis, parakeratosis and minimal inflammation. No evidence of malignancy. See comment. 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 Clinical correlation is suggested. Case has been reviewed in consultation with Dr. Bartlett who concurs with the above diagnosis. IDC:SJ MICROSCOPIC DESCRIPTION Slides are reviewed. GROSS DESCRIPTION Received in fixative is one container labeled with the patient's name and designated tongue. The specimen consists of a single irregular fragment of ellis tissue measuring 0.6 x 0.3 x 0.2 cm. The specimen is totally submitted in one cassette. / AM:sierra 08/09/2022 TC:3 CPT: 50006
== END | disposition home or self-care (01) ==
LOC: LABSPEC 12:25
PROVIDERS: PCP Family Medicine; Referring Provider Dentist Oral and Maxillofacial Surgery; Visit Provider Dentist Oral and Maxillofacial Surgery
DX: K13.70 Unspecified lesions of oral mucosa (principal)
CPT/HCPCS: 88305

== ENCOUNTER 2022-09-25 05:59 | Day surgery (SDC) | payer OTHER, SELFPAY ==
[2022-09-25] VITALS (7 sets, daily range): BP systolic 105–121; BP diastolic 74–100; PULSE 58–74; RESP 16; TEMP 36.6–37.1; O2SAT 97–100; BMI 30.8
[2022-09-25] MEDS: Lactated Ringers 1,000 ML 15 ML IV (06:47)
--- NOTE | 2022-09-25 06:57 | PCM.HP.BLA ---
History and Physical Date of Admission: 09/25/22 needs screening colonoscopy, acid reflux Details: MANJULA SAUCEDA, is a 51 F who presents to the office today to establish with GI. She would like a screening colonoscopy. She has significant acid reflux. Previously took esomeprazole for GERD. Had an EGD many yrs ago. Lately using her daughter's pantoprazole which is very helpful so she would like a prescription. Before pantoprazole she was alternating famotidine, cimetidine, and omeprazole. Has to wash down her food with lots of water, food getting stuck, then regurgitates, this started in the last year. No abd or chest pain. Has always burped a lot, and has excessive gas and bloating. Can't tolerate eggs. Can't tolerate alcohol. I believe daughter has celiac. Pt has allergy to egg and gluten per 2019 blood test. Takes Linzess 145 mcg prn constipation. No diarrhea. No melena or hematochezia. Working with a psychiatrist on wt loss, has binge eating following deaths of her father and brother. 05/2022 bone density test: osteopenia ROS Const Constitutional: Positive for fatigue ENT ENT: Positive for difficulty swallowing Gastro GI: Positive for bloating, constipation, difficulty swallowing and excessive flatus; No abdominal pain, belching, change in bowel habits, change in stool character, coffee ground emesis, cramping, diarrhea, heartburn, feeling full early, incontinent of stools, Vomiting blood/hematemesis, Blood in stool, loose stools, Black,tarry stools, nausea/dyspepsia, pain with swallowing, vomiting or other Musc Musculoskeletal: Positive for joint pain, numbness, stiffness, tingling and Arthritis Skin Skin: No yellowing of the eye or itchy eyes Neuro Neurology: Positive for numbness and tingling Psych Psychiatric: No anxiety, No depression, Positive for Compulsive Behavior, Positive for hyperactivity and Positive for inattentiveness Endo Endocrine: Positive for fatigue Aller/Imm Allergy/Immunologic: No itchy eyes Candelario/Lymp Hematologic/Lymphatic: Positive for easy bruising; No easy bleeding Exam Const General: cooperative and comfortable Nutritional Appearance: obese Orientation: alert, awake and oriented x3 HENMT Head: normal to inspection Eyes Sclera: sclerae normal Resp Effort & Inspection: normal respiratory effort Quality Reporting Tobacco Screening ([facility] 138) Smoking Status: Never smoker Assessment and Plan Assessment and Plan (1) GERD (gastroesophageal reflux disease): ?Status:?Chronic ?Plan: 51 yr old female with GERD, dysphagia, possible celiac. Will get EGD to eval for stricture, Doshi's. Screening colonoscopy. Labs to eval for celiac and other causes of her GI issues. f/u after endoscopies. will call her with lab results. Rx pantoprazole 40 mg QAM. (2) Dysphagia: ?Status:?Chronic ?Plan: see above (3) Bloating: ?Status:?Acute ?Plan: see above (4) Flatus: ?Status:?Acute ?Plan: see above (5) Burping: ?Status:?Acute ?Plan: see above ? ? ? Orders: Orders Celiac Disease Profile Today K21.9 - Gastro-esophageal reflux disease without esophagitis, R13.10 - Dysphagia, unspecified, R14.0 - Abdominal distension (gaseous), R14.2 - Eructation, R14.3 - Flatulence ? CRP Today K21.9 - Gastro-esophageal reflux disease without esophagitis, R13.10 - Dysphagia, unspecified, R14.0 - Abdominal distension (gaseous), R14.2 - Eructation, R14.3 - Flatulence ? Erythrocyte Sed Rate Today K21.9 - Gastro-esophageal reflux disease without esophagitis, R13.10 - Dysphagia, unspecified, R14.0 - Abdominal distension (gaseous), R14.2 - Eructation, R14.3 - Flatulence ? MELITON Comprehensive Panel Today K21.9 - Gastro-esophageal reflux disease without esophagitis, R13.10 - Dysphagia, unspecified, R14.0 - Abdominal distension (gaseous), R14.2 - Eructation, R14.3 - Flatulence ? ANCA Today K21.9 - Gastro-esophageal reflux disease without esophagitis, R13.10 - Dysphagia, unspecified, R14.0 - Abdominal distension (gaseous), R14.2 - Eructation, R14.3 - Flatulence ? CBC W/Diff, Automated Today K21.9 - Gastro-esophageal reflux disease without esophagitis, R13.10 - Dysphagia, unspecified, R14.0 - Abdominal distension (gaseous), R14.2 - Eructation, R14.3 - Flatulence ? Comprehensive Metabolic Profil Today K21.9 - Gastro-esophageal reflux disease without esophagitis, R13.10 - Dysphagia, unspecified, R14.0 - Abdominal distension (gaseous), R14.2 - Eructation, R14.3 - Flatulence ? Immunoglobulins G/A/M/E Today K21.9 - Gastro-esophageal reflux disease without esophagitis, R13.10 - Dysphagia, unspecified, R14.0 - Abdominal distension (gaseous), R14.2 - Eructation, R14.3 - Flatulence ? Medications: New pantoprazole 40 mg? PO QAM 90 tabs 3RF I have examined the patient and the H&P has been reviewed. There are no clinical changes since date of exam.
--- NOTE | 2022-09-25 07:00 | EGD_PTH ---
PATIENT: MANJULA SAUCEDA LOC: EN U#:[id number] AGE/SX: 51/F ROOM: RE09/25/[address]: Dr. Christofer Jose DO : 1970 BED: DIS: 09/25/2022 SPEC #: [id number] RECD: 09/25/22 12:16 STATUS: KIMBERLY REBjorn #: [id number] REGINALD: 09/25/22 07:[address]: Christofer Jose DEPT: SURGICAL PATHOLOGY RECD BY: Glenna Rodriguez ENTERED: 09/25/22 12:54 SP TYPE: EGD BIOPSY OT DR: Dr. Gayle Merino DO Tissues: A - Gastric mucous membrane B - Esophagus, NOS Procedures: Special Stain Group II Surgery Specimen Level IV Alcian Blue/PAS (control) HEADER OPERATION: Colonoscopy, EGD with biopsy PRE-OP DIAGNOSIS: GERD, dysphagia, bloating, flatus, burping TISSUE SUBMITTED: A ? Gastric biopsy, B ? Distal esophagus biopsy MICROSCOPIC DIAGNOSIS A. Gastric biopsy: Moderate gastritis. See microscopic description and comment. B. Distal esophagus, biopsy: Fragments of gastroesophageal mucosa with chronic inflammation. Intestinal metaplasia (goblet cell metaplasia) not identified. Changes consistent with eosinophilic esophagitis. See comment. SJ:rg 09/26/2022 COMMENT A. The results of immunohistochemistry for Helicobacter pylori will be reported separately ([id number]). B. Alcian blue/PAS stain with matched control is used in the evaluation of the specimen. Increased number of eosinophils (>20 per high power field) are noted consistent with eosinophilic esophagitis. MICROSCOPIC DESCRIPTION Slides are reviewed. A. The specimen shows fragments of gastric mucosa with chronic inflammatory cell infiltrates in the lamina propria consisting of lymphocytes and plasma cells, consistent with moderate chronic gastritis. GROSS DESCRIPTION A - Received in fixative is one container labeled with the patient's name and designated gastric biopsy. The specimen consists of two irregular fragments of light ellis soft tissue that in aggregate measure 0.6 x 0.3 x 0.1 cm. The specimen is totally submitted in one cassette. B - Received in fixative is one container labeled with the patient's name and designated distal esophagus biopsy. The specimen consists of multiple irregular fragments of light ellis soft tissue that in aggregate measure 1.0 x 0.3 x 0.1 cm. The specimen is totally submitted in one cassette. / SJ:rg 09/25/2022 TC:3 CPT: 88321 x2, 62746
--- NOTE | 2022-09-25 07:00 | IMM_PTH ---
PATIENT: MANJULA SAUCEDA LOC: EN U#:[id number] AGE/SX: 51/F ROOM: RE09/25/[address]: Dr. Christofer Jose DO : 1970 BED: DIS: 09/25/2022 SPEC #: [id number] RECD: 09/25/22 13:04 STATUS: KIMBERLY REQ #: [id number] REGINALD: 09/25/22 07:[address]: Christofer Jose DEPT: IMMUNOHISTOCHEMISTRY RECD BY: Gaviota Presley ENTERED: 09/25/22 13:05 SP TYPE: IMMUNO OTHR DR: Dr. Gayle Merino DO Tissues: A - Stomach, NOS Procedures: H Pylori (initial) PHYSICIAN & INSTITUTION [place] [phone] SPECIMEN INFORMATION: Tissue Source: A ? Gastric biopsy Clinical Info: GERD, dysphagia, bloating, flatus, burping Specimen Number: [id number] CPT code: 31438 METHODOLOGY: Deparaffinized sections of prefer/formalin-fixed tissue or PAP/DQ stained slides are incubated with monoclonal/polyclonal antibodies/oligonucleotide probes. Localization is made via biotin free immunoperoxidase method. Appropriate controls are performed and reacted as expected. Results on target cell population are indicated in the following table: RESULTS: ANTIBODY / CLONE RESULT Block A H Pylori (polyclonal) negative These tests were developed and their performance characteristics determined by [facility]. They may not have been cleared or approved by the U.S. Food and Drug Administration. The FDA has determined that such clearance or approval is not necessary. The above immunohistochemical/dualISH markers are ordered and reviewed by the Pathologist. INTERPRETATION: A. Gastric biopsy: Negative for Helicobacter pylori organisms. SJ:sierra 09/26/2022
--- NOTE | 2022-09-25 07:39 | OP.EGD_ITS ---
Patient Name: Lalitha Savage Procedure Date: 09/25/2022 7:01 AM Date of : 1970 Age: 51 Procedure: Upper GI endoscopy Indications: Functional Dyspepsia, Dysphagia, Heartburn Providers: Christofer Jose DO Referring MD: Christofer Jose DO Medicines: Monitored Anesthesia Care Patient Profile: This is a 51 year old female. Refer to note in patient chart for documentation of history and physical. Patient has symptoms of chronic dysphagia, chronic dyspepsia and chronic regurgitation. Complications: No immediate complications. Procedure: Pre-Anesthesia Assessment: - Prior to the procedure, a History and Physical was performed, and patient medications and allergies were reviewed. The risks and benefits of the procedure and the sedation options and risks were discussed with the patient. All questions were answered and informed consent was obtained. Patient identification and proposed procedure were verified by the physician in the pre-procedure area. Mental Status Examination: alert and oriented. Airway Examination: normal oropharyngeal airway and neck mobility. Respiratory Examination: clear to auscultation. CV Examination: normal. Prophylactic Antibiotics: The patient does not require prophylactic antibiotics. Prior Anticoagulants: The patient has taken no previous anticoagulant or antiplatelet agents. ASA Grade Assessment: I - A normal, healthy patient. After reviewing the risks and benefits, the patient was deemed in satisfactory condition to undergo the procedure. The anesthesia plan was to use monitored anesthesia care (MAC). Immediately prior to administration of medications, the patient was re-assessed for adequacy to receive sedatives. The heart rate, respiratory rate, oxygen saturations, blood pressure, adequacy of pulmonary ventilation, and response to care were monitored throughout the procedure. The physical status of the patient was re-assessed after the procedure. After obtaining informed consent, the endoscope was passed under direct vision. Throughout the procedure, the patient's blood pressure, pulse, and oxygen saturations were monitored continuously. The Colonoscope was introduced through the mouth, and advanced to the second part of duodenum. The upper GI endoscopy was accomplished without difficulty. The patient tolerated the procedure well. Scope In: 7:08:02 AM Scope Out: 7:12:38 AM Total Procedure Duration Time 0 hours 4 minutes 36 seconds Findings: The Z-line was irregular and was found 36 cm from the incisors. Biopsies were taken with a cold forceps for histology. Verification of patient identification for the specimen was done. Estimated blood loss was minimal. A 4 cm hiatal hernia was present. Patchy mildly erythematous mucosa without bleeding was found in the gastric antrum. Biopsies were taken with a cold forceps for histology. Verification of patient identification for the specimen was done. Estimated blood loss was minimal. The first portion of the duodenum was normal. Impression: - Z-line irregular, 36 cm from the incisors. Biopsied. - 4 cm hiatal hernia. - Erythematous mucosa in the antrum. Biopsied. - Normal first portion of the duodenum. Recommendation: - Discharge patient to home. - Resume previous diet. - Continue present medications. - Await pathology results. Procedure Code(s): --- Professional --- 41145, Esophagogastroduodenoscopy, flexible, transoral; with biopsy, single or multiple CPT copyright 2017 [employer]. All rights reserved. The codes documented in this report are preliminary and upon family protection specialist review may be revised to meet current compliance requirements. Christofer Jose DO 09/25/2022 7:38:49 AM This report has been signed electronically. Number of Addenda: 0 Note Initiated On: 09/25/2022 7:01 AM
--- NOTE | 2022-09-25 07:40 | OP.CCLET_ITS ---
09/25/2022 Gayle Merino [address] [facility] [place] [address] Re : Upper GI endoscopy procedure for Lalitha Savage Dear Dr. Merino This procedure was performed on Sunday, September 25, 2022. My impressions and recommendations are as follows: Impressions : - Z-line irregular, 36 cm from the incisors. Biopsied. - 4 cm hiatal hernia. - Erythematous mucosa in the antrum. Biopsied. - Normal first portion of the duodenum. Recommendations : - Discharge patient to home. - Resume previous diet. - Continue present medications. - Await pathology results. My findings are described in the full procedure note, which is enclosed. If I can be of further assistance, please feel free to contact me at . Sincerely, Christofer Jose, 09/25/2022 7:38:49 AM This report has been signed electronically.
--- NOTE | 2022-09-25 07:43 | OP.COLON_ITS ---
Patient Name: Lalitha Savage Procedure Date: 09/25/2022 7:13 AM Date of : 1970 Age: 51 Procedure: Colonoscopy Indications: Screening for colorectal malignant neoplasm Providers: Christofer Jose DO Referring MD: Christofer Jose DO Medicines: Monitored Anesthesia Care Patient Profile: This is a 51 year old female. Refer to note in patient chart for documentation of history and physical. Patient has symptoms of chronic dysphagia, chronic dyspepsia and chronic regurgitation. Last Colonoscopy: none. The patient's first colonoscopy is today. Complications: No immediate complications. Procedure: Pre-Anesthesia Assessment: - Prior to the procedure, a History and Physical was performed, and patient medications and allergies were reviewed. The risks and benefits of the procedure and the sedation options and risks were discussed with the patient. All questions were answered and informed consent was obtained. Patient identification and proposed procedure were verified by the physician in the pre-procedure area. Mental Status Examination: alert and oriented. Airway Examination: normal oropharyngeal airway and neck mobility. Respiratory Examination: clear to auscultation. CV Examination: normal. Prophylactic Antibiotics: The patient does not require prophylactic antibiotics. Prior Anticoagulants: The patient has taken no previous anticoagulant or antiplatelet agents. ASA Grade Assessment: I - A normal, healthy patient. After reviewing the risks and benefits, the patient was deemed in satisfactory condition to undergo the procedure. The anesthesia plan was to use monitored anesthesia care (MAC). Immediately prior to administration of medications, the patient was re-assessed for adequacy to receive sedatives. The heart rate, respiratory rate, oxygen saturations, blood pressure, adequacy of pulmonary ventilation, and response to care were monitored throughout the procedure. The physical status of the patient was re-assessed after the procedure. After I obtained informed consent, the scope was passed under direct vision. Throughout the procedure, the patient's blood pressure, pulse, and oxygen saturations were monitored continuously. The Colonoscope was introduced through the anus and advanced to the cecum, identified by appendiceal orifice and ileocecal valve. The colonoscopy was performed without difficulty. The patient tolerated the procedure well. The quality of the bowel preparation was fair. Scope In: 7:15:11 AM Scope Withdrawal Time 0 hours 10 minutes 24 seconds Scope Out: 7:28:41 AM Total Procedure Duration Time 0 hours 13 minutes 30 seconds Findings: The perianal and digital rectal examinations were normal. Stool was found in the recto-sigmoid colon, in the sigmoid colon, in the ascending colon and in the cecum. The exam was otherwise without abnormality on direct and retroflexion views. Impression: - Preparation of the colon was fair. - Stool in the recto-sigmoid colon, in the sigmoid colon, in the ascending colon and in the cecum. - The examination was otherwise normal on direct and retroflexion views. - No specimens collected. Recommendation: - Discharge patient to home. - Resume previous diet. - Continue present medications. - Repeat colonoscopy at appointment to be scheduled because the bowel preparation was suboptimal. Procedure Code(s): --- Professional --- G0121, Colorectal cancer screening; colonoscopy on individual not meeting criteria for high risk CPT copyright 2017 [employer]. All rights reserved. The codes documented in this report are preliminary and upon facilities custodian review may be revised to meet current compliance requirements. Christofer Jose DO 09/25/2022 7:43:08 AM This report has been signed electronically. Number of Addenda: 0 Note Initiated On: 09/25/2022 7:13 AM
--- NOTE | 2022-09-25 07:44 | OP.CCLET_ITS ---
09/25/2022 Gayle Merino [address] [place] [address] Re : Colonoscopy procedure for Lalitha Savage Dear Dr. Merino This procedure was performed on Sunday, September 25, 2022. My impressions and recommendations are as follows: Impressions : - Preparation of the colon was fair. - Stool in the recto-sigmoid colon, in the sigmoid colon, in the ascending colon and in the cecum. - The examination was otherwise normal on direct and retroflexion views. - No specimens collected. Recommendations : - Discharge patient to home. - Resume previous diet. - Continue present medications. - Repeat colonoscopy at appointment to be scheduled because the bowel preparation was suboptimal. My findings are described in the full procedure note, which is enclosed. If I can be of further assistance, please feel free to contact me at . Sincerely, Christofer Jose, 09/25/2022 7:43:08 AM This report has been signed electronically.
== END 2022-09-25 08:23 | disposition home or self-care (01) ==
LOC: EN 05:59 → AC 06:00
PROVIDERS: PCP Family Medicine; Referring Provider Family Medicine; Visit Provider Internal Medicine Gastroenterology
PROC: 0DJD8ZZ Inspection of Lower Intestinal Tract, Via Natural or Artificial Opening Endoscopic (ICD-10-PCS; CPT 45378; principal; 2022-09-25 06:55)
DX: Z12.11 Encounter for screening for malignant neoplasm of colon (principal); K44.9 Diaphragmatic hernia without obstruction or gangrene; K21.00 Gastro-esophageal reflux disease with esophagitis, without bleeding; Z79.899 Other long term (current) drug therapy; K29.70 Gastritis, unspecified, without bleeding; I10 Essential (primary) hypertension
CPT/HCPCS: 43239; 45378; 88305; 88313; 88342; J7120; J2405

== ENCOUNTER → 2022-10-13 | Outpatient (CLI) | payer OTHER, SELFPAY ==
[2022-10-17 19:07] LABS: Beef <0.10 kU/L (Class 0); Chocolate <0.10 kU/L (Class 0); Corn <0.10 kU/L (Class 0); Egg, Whole <0.10 kU/L (Class 0); Milk (Cow) 1.17 kU/L (Class II); Peanut <0.10 kU/L (Class 0); Pork <0.10 kU/L (Class 0); Soybean <0.10 kU/L (Class 0); Wheat 0.74 kU/L (Class II)
== END | disposition home or self-care (01) ==
LOC: LAB 10:34
PROVIDERS: PCP Family Medicine; Referring Provider Nurse Practitioner Adult Health; Visit Provider Nurse Practitioner Adult Health
DX: K20.0 Eosinophilic esophagitis (principal)
CPT/HCPCS: 36415; 86003; 86005

== ENCOUNTER → 2023-02-21 | Outpatient (CLI) | payer OTHER, SELFPAY ==
[2023-02-21 16:30] LABS: Vitamin B12 490 pg/mL (211-911); Vitamin D,25 Hydroxy 31.9 ng/mL
[2023-02-21 19:37] LABS: Free T3 2.4 pg/mL (2.18-3.98); T4 Free Direct 0.62 ng/dL (0.76-1.46); Thyroid Stim Hormone (TSH) 7.86 uIU/mL (0.358-3.74)
== END | disposition home or self-care (01) ==
LOC: LAB 14:17
PROVIDERS: PCP Family Medicine; Referring Provider Family Medicine; Visit Provider Family Medicine
DX: E03.9 Hypothyroidism, unspecified (principal); E55.9 Vitamin D deficiency, unspecified; E53.8 Deficiency of other specified B group vitamins
CPT/HCPCS: 36415; 82306; 82607; 84439; 84443; 84481

== ENCOUNTER → 2023-04-11 | Outpatient (CLI) | payer OTHER, SELFPAY | END | disposition home or self-care (01) | PROVIDERS: PCP Family Medicine; Visit Provider Physician Assistant Surgical | DX: R30.9 Painful micturition, unspecified (principal) | CPT/HCPCS: 87086; 87088 ==

== ENCOUNTER → 2023-04-14 | Outpatient (CLI) | payer OTHER, SELFPAY ==
[2023-04-14 14:22] LABS: Bacteria 0 SEEN /hpf (None Seen); Mucous, Urine 0 SEEN /hpf (<or=2+); Red Blood Cells-Urine 0 SEEN /hpf (0-5); White Blood Cells 0 SEEN /hpf (0-5)
[2023-04-14 14:34] LABS: Glucose, Dipstick Normal (Normal); Ketone-Dipstick Negative (Negative); Leukocyte Esterase-Dipstick 25 /ul (Negative); Nitrite-Dipstick Positive (Negative); Occult Blood-Urine 25 /ul (Negative); Protein-Dipstick Negative (Negative); Urine Clarity Clear (Clear); Urine Urobilinogen 8 mg/dl (Normal); Urine pH 6.5 (5.0 - 8.0)
[2023-04-14 14:36] LABS: Color, Urine SEE COMMENT BELOW (Yellow)
[2023-04-14 14:37] LABS: Urine Bilirubin Dipstick 3 mg/dL (Negative)
[2023-04-14 14:49] LABS: Squamous Epithelial Cells - UA 0-5 SEEN /hpf (5-10)
== END | disposition home or self-care (01) ==
LOC: LABSPEC 14:21
PROVIDERS: PCP Family Medicine; Visit Provider Physician Assistant Medical
DX: R30.0 Dysuria (principal)
CPT/HCPCS: 81001; 87086

== ENCOUNTER 2023-07-12 07:49 | Day surgery (SDC) | payer OTHER, SELFPAY ==
[2023-07-12] VITALS (7 sets, daily range): BP systolic 85–130; BP diastolic 53–86; PULSE 68–88; RESP 16–17; TEMP 36.2–36.7; O2SAT 94–98; BMI 30.8
--- NOTE | 2023-07-12 | ESO_PTH ---
PATHOLOGY RESULTS PATIENT: MANJULA SAUCEDA LOC: EN U#:[id number] AGE/SX: 52/F ROOM: RE07/12/[address]: Dr. Christofer Jose DO : 1970 BED: DIS: 07/12/2023 SPEC #: [id number] RECD: 07/12/23 13:42 STATUS: KIMBERLY REBjorn #: [id number] REGINALD: 07/12/23 00:[address]: Christofer Jose DEPT: SURGICAL PATHOLOGY RECD BY: Storm Warren ENTERED: 07/12/23 13:43 SP TYPE: JERRICA ESPINAL DR: Dr. Gayle Merino DO Tissues: Esophagus, NOS Procedures: Special Stain Group II Surgery Specimen Level IV Alcian Blue/PAS (control) HEADER OPERATION: Colonoscopy, EGD, biopsy PRE-OP DIAGNOSIS: Chronic constipation, eosinophilic esophagitis, GERD TISSUE SUBMITTED: Distal esophagus biopsy MICROSCOPIC DIAGNOSIS Distal esophagus, biopsy: Fragments of gastric mucosa with chronic inflammation. No evidence of goblet cell metaplasia. See comment. AM:sierra 07/13/2023 COMMENT Alcian blue/PAS stain with matched control supports the above diagnosis. MICROSCOPIC DESCRIPTION Slides are reviewed. GROSS DESCRIPTION Received in fixative is one container labeled with the patient's name and designated distal esophagus biopsy. The specimen consists of multiple irregular fragments of light ellis soft tissue that in aggregate measure 0.8 x 0.5 x 0.1 cm. The specimen is totally submitted in one cassette. / SJ:sierra 07/12/2023 TC:3 CPT: 57286, 02133
--- NOTE | 2023-07-12 07:59 | PCM.HP.BLA ---
History and Physical Date of Admission: 07/12/23 MANJULA SAUCEDA, is a 51 F who presents to the office today for f/u EGD lots of bloating, including with Linzess lifelong belching dysphagia gets allergy shots 07/2022 labs: --the only abnormal labs are esr and crp which indicate inflammation --negative for celiac yr old female with GERD, dysphagia, possible celiac. Will get EGD to eval for stricture, Doshi's. Screening colonoscopy. Labs to eval for celiac and other causes of her GI issues. f/u after endoscopies. will call her with lab results. Rx pantoprazole 40 mg QAM. (2) Dysphagia: resents to the office today to establish with GI. She would like a screening colonoscopy. She has significant acid reflux. Previously took esomeprazole for GERD. Had an EGD many yrs ago. Lately using her daughter's pantoprazole which is very helpful so she would like a prescription. Before pantoprazole she was alternating famotidine, cimetidine, and omeprazole. Has to wash down her food with lots of water, food getting stuck, then regurgitates, this started in the last year. No abd or chest pain. Has always burped a lot, and has excessive gas and bloating. Can't tolerate eggs. Can't tolerate alcohol. I believe daughter has celiac. Pt has allergy to egg and gluten per 2019 blood test. Takes Linzess 145 mcg prn constipation. No diarrhea. No melena or hematochezia. Working with a psychiatrist on wt loss, has binge eating following deaths of her father and brother. 05/2022 bone density test: osteopenia 09/25/22 EGD and Colonoscopy Impression: ? - Z-line irregular, 36 cm from the incisors. ? Biopsied. ? - 4 cm hiatal hernia. ? - Erythematous mucosa in the antrum. Biopsied. ? - Normal first portion of the duodenum. mpression: ? - Preparation of the colon was fair. ? - Stool in the recto-sigmoid colon, in the ? sigmoid colon, in the ascending colon and in ? the cecum. ? - The examination was otherwise normal on ? direct and retroflexion views. ? - No specimens collected. ROS Const Constitutional: No fatigue ENT ENT: Positive for difficulty swallowing Gastro GI: Positive for abdominal pain, bloating, change in bowel habits, constipation, difficulty swallowing, excessive flatus and nausea/dyspepsia; No belching, change in stool character, coffee ground emesis, cramping, diarrhea, heartburn, feeling full early, incontinent of stools, Vomiting blood/hematemesis, Blood in stool, loose stools, Black,tarry stools, pain with swallowing, vomiting or other Musc Musculoskeletal: Positive for joint swelling, numbness, stiffness, tingling, Arthritis and sciatica; No joint pain Skin Skin: No yellowing of the eye or itchy eyes Neuro Neurology: Positive for numbness and tingling Psych Psychiatric: Positive for anxiety, Positive for depression, Positive for hyperactivity and Positive for inattentiveness Endo Endocrine: No fatigue Aller/Imm Allergy/Immunologic: No itchy eyes Candelario/Lymp Hematologic/Lymphatic: Positive for easy bruising; No easy bleeding Quality Reporting Tobacco Screening ([facility] 138) Smoking Status: Never smoker Assessment and Plan Assessment and Plan (1) Chronic constipation: Status: Chronic Plan: Reviewed findings from EGD and colonoscopy Take Linzess 145 mcg every day instead of prn, will look for less bloating, perhaps less acid reflux Will need to schedule her for repeat colonoscopy with better prep, consider golytely or other (2) Eosinophilic esophagitis: Status: Chronic Plan: Rx dupixent for new dx of EOE, will look for resolution of dysphagia Food allergy panel ordered (3) GERD (gastroesophageal reflux disease): Status: Chronic Plan: Temporarily increase pantoprazole 40 mg to bid since qam not controlling acid reflux Orders: Orders Allergen, Rast Food Profile Today K20.0 - Eosinophilic esophagitis Medications: New dupilumab (Dupixent) 300 mg (2 mL) subcut QWEEK 8 mL 12RF EOE Refilled pantoprazole 40 mg PO QAM 180 tabs 0RF I have examined the patient and the H&P has been reviewed. There are no clinical changes since date of exam.
[2023-07-12] MEDS: Lactated Ringers 1,000 ML 15 ML IV (08:13)
--- NOTE | 2023-07-12 09:07 | OP.EGD_ITS ---
Patient Name: Lalitha Savage Procedure Date: 07/12/2023 8:29 AM Date of : 1970 Age: 52 Procedure: Upper GI endoscopy Indications: Functional Dyspepsia, Heartburn Providers: Christofer Jose DO Referring MD: Gayle Merino Medicines: Monitored Anesthesia Care Patient Profile: This is a 52 year old female. Refer to note in patient chart for documentation of history and physical. Patient has symptoms of chronic dyspepsia and chronic heartburn. Complications: No immediate complications. Procedure: Pre-Anesthesia Assessment: - Prior to the procedure, a History and Physical was performed, and patient medications and allergies were reviewed. The patient is competent. The risks and benefits of the procedure and the sedation options and risks were discussed with the patient. All questions were answered and informed consent was obtained. Patient identification and proposed procedure were verified by the physician in the pre-procedure area. Mental Status Examination: alert and oriented. Airway Examination: normal oropharyngeal airway and neck mobility. Respiratory Examination: clear to auscultation. CV Examination: normal. Prophylactic Antibiotics: The patient does not require prophylactic antibiotics. Prior Anticoagulants: The patient has taken no anticoagulant or antiplatelet agents. ASA Grade Assessment: II - A patient with mild systemic disease. After reviewing the risks and benefits, the patient was deemed in satisfactory condition to undergo the procedure. The anesthesia plan was to use monitored anesthesia care (MAC). Immediately prior to administration of medications, the patient was re-assessed for adequacy to receive sedatives. The heart rate, respiratory rate, oxygen saturations, blood pressure, adequacy of pulmonary ventilation, and response to care were monitored throughout the procedure. The physical status of the patient was re-assessed after the procedure. After obtaining informed consent, the endoscope was passed under direct vision. Throughout the procedure, the patient's blood pressure, pulse, and oxygen saturations were monitored continuously. The gastroscope was introduced through the mouth, and advanced to the second part of duodenum. The upper GI endoscopy was accomplished without difficulty. The patient tolerated the procedure well. Scope In: 8:40:27 AM Scope Out: 8:44:05 AM Total Procedure Duration Time 0 hours 3 minutes 38 seconds Findings: Abnormal motility was noted in the esophagus. The cricopharyngeus was abnormal. There is spasticity of the esophageal body. The distal esophagus/lower esophageal sphincter is spastic, but gives up passage to the endoscope. Tertiary peristaltic waves are noted. The Z-line was irregular and was found 38 cm from the incisors. Biopsies were taken with a cold forceps for histology. Verification of patient identification for the specimen was done. Estimated blood loss was minimal. A large hiatal hernia was present. Multiple 3 mm sessile polyps with no bleeding and no stigmata of recent bleeding were found in the gastric body. The first portion of the duodenum was normal. Impression: - Abnormal esophageal motility, suspicious for esophageal spasm. - Z-line irregular, 38 cm from the incisors. Biopsied. - Large hiatal hernia. - Multiple gastric polyps. - Normal first portion of the duodenum. Recommendation: - Discharge patient to home. - Resume previous diet. - Continue present medications. - Await pathology results. Procedure Code(s): --- Professional --- 42697, Esophagogastroduodenoscopy, flexible, transoral; with biopsy, single or multiple CPT copyright 2021 [employer]. All rights reserved. The codes documented in this report are preliminary and upon radioisotope technician review may be revised to meet current compliance requirements. Christofer Jose DO 07/12/2023 9:06:49 AM This report has been signed electronically. Number of Addenda: 0 Note Initiated On: 07/12/2023 8:29 AM
--- NOTE | 2023-07-12 09:08 | OP.CCLET_ITS ---
07/12/[address] [facility] [place] [address] Re : Upper GI endoscopy procedure for Lalitha Savage Dear Dr. Merino This procedure was performed on July. My impressions and recommendations are as follows: Impressions : - Abnormal esophageal motility, suspicious for esophageal spasm. - Z-line irregular, 38 cm from the incisors. Biopsied. - Large hiatal hernia. - Multiple gastric polyps. - Normal first portion of the duodenum. Recommendations : - Discharge patient to home. - Resume previous diet. - Continue present medications. - Await pathology results. My findings are described in the full procedure note, which is enclosed. If I can be of further assistance, please feel free to contact me at . Sincerely, Christofer Jose, 07/12/2023 9:06:49 AM This report has been signed electronically.
--- NOTE | 2023-07-12 09:10 | OP.CCLET_ITS ---
07/12/2023 Gayle Merino [address] [place] [address] Re : Colonoscopy procedure for Lalitha Savage Dear Dr. Merino This procedure was performed on July. My impressions and recommendations are as follows: Impressions : - The entire examined colon is normal. - Diverticulosis in the recto-sigmoid colon and in the sigmoid colon. - No specimens collected. Recommendations : - Discharge patient to home. - Resume previous diet. - Continue present medications. - Repeat colonoscopy in 10 years for screening purposes. My findings are described in the full procedure note, which is enclosed. If I can be of further assistance, please feel free to contact me at . Sincerely, Christofer Jose, 07/12/2023 9:09:27 AM This report has been signed electronically.
--- NOTE | 2023-07-12 09:10 | OP.COLON_ITS ---
Patient Name: Lalitha Savage Procedure Date: 07/12/2023 8:44 AM Date of : 1970 Age: 52 Procedure: Colonoscopy Indications: Screening for colorectal malignant neoplasm Providers: Christofer Jose DO Referring MD: Gayle Merino Medicines: Monitored Anesthesia Care Patient Profile: This is a 52 year old female. Refer to note in patient chart for documentation of history and physical. Patient has symptoms of chronic dyspepsia and chronic heartburn. Last Colonoscopy: more than 3 years ago. Complications: No immediate complications. Procedure: Pre-Anesthesia Assessment: - Prior to the procedure, a History and Physical was performed, and patient medications and allergies were reviewed. The patient is competent. The risks and benefits of the procedure and the sedation options and risks were discussed with the patient. All questions were answered and informed consent was obtained. Patient identification and proposed procedure were verified by the physician in the pre-procedure area. Mental Status Examination: alert and oriented. Airway Examination: normal oropharyngeal airway and neck mobility. Respiratory Examination: clear to auscultation. CV Examination: normal. Prophylactic Antibiotics: The patient does not require prophylactic antibiotics. Prior Anticoagulants: The patient has taken no anticoagulant or antiplatelet agents. ASA Grade Assessment: II - A patient with mild systemic disease. After reviewing the risks and benefits, the patient was deemed in satisfactory condition to undergo the procedure. The anesthesia plan was to use monitored anesthesia care (MAC). Immediately prior to administration of medications, the patient was re-assessed for adequacy to receive sedatives. The heart rate, respiratory rate, oxygen saturations, blood pressure, adequacy of pulmonary ventilation, and response to care were monitored throughout the procedure. The physical status of the patient was re-assessed after the procedure. After I obtained informed consent, the scope was passed under direct vision. Throughout the procedure, the patient's blood pressure, pulse, and oxygen saturations were monitored continuously. The Colonoscope was introduced through the anus and advanced to the terminal ileum. The colonoscopy was performed without difficulty. The patient tolerated the procedure well. The quality of the bowel preparation was adequate. Scope In: 8:45:50 AM Scope Withdrawal Time 0 hours 9 minutes 43 seconds Scope Out: 8:58:29 AM Total Procedure Duration Time 0 hours 12 minutes 39 seconds Findings: The perianal and digital rectal examinations were normal. The colon (entire examined portion) appeared normal. A few small-mouthed diverticula were found in the recto-sigmoid colon and sigmoid colon. Impression: - The entire examined colon is normal. - Diverticulosis in the recto-sigmoid colon and in the sigmoid colon. - No specimens collected. Recommendation: - Discharge patient to home. - Resume previous diet. - Continue present medications. - Repeat colonoscopy in 10 years for screening purposes. Procedure Code(s): --- Professional --- G0121, Colorectal cancer screening; colonoscopy on individual not meeting criteria for high risk CPT copyright 2021 [employer]. All rights reserved. The codes documented in this report are preliminary and upon liquor rectifier review may be revised to meet current compliance requirements. Christofer Jose DO 07/12/2023 9:09:27 AM This report has been signed electronically. Number of Addenda: 0 Note Initiated On: 07/12/2023 8:44 AM
== END 2023-07-12 10:02 | disposition home or self-care (01) ==
LOC: EN 07:51 → AC 07:52
PROVIDERS: PCP Family Medicine; Referring Provider Family Medicine; Visit Provider Internal Medicine Gastroenterology
PROC: 0DJD8ZZ Inspection of Lower Intestinal Tract, Via Natural or Artificial Opening Endoscopic (ICD-10-PCS; CPT 45378; principal; 2023-07-12 08:40)
DX: Z12.11 Encounter for screening for malignant neoplasm of colon (principal); K20.0 Eosinophilic esophagitis; K44.9 Diaphragmatic hernia without obstruction or gangrene; K57.30 Diverticulosis of large intestine without perforation or abscess without bleeding; K31.7 Polyp of stomach and duodenum; K59.09 Other constipation; K21.9 Gastro-esophageal reflux disease without esophagitis; K22.89 Other specified disease of esophagus
CPT/HCPCS: 45378; 43239; 88305; 88313; J7120; J2405

== ENCOUNTER → 2023-08-08 | Outpatient (CLI) | payer OTHER, SELFPAY ==
--- NOTE | 2023-08-08 06:39 | NM_ITS ---
CLINICAL: 52-year-old female with history of abdominal bloating and known hiatal hernia. SEMI-SOLID PHASE 99m Tc SULFUR COLLOID GASTRIC EMPTYING STUDY COMPARISON: None available FINDINGS: The patient was administered 1.1 mCi of 99m Tc sulfur colloid mixed with oatmeal and consumed per os. Image acquisitions in the anterior-posterior projections were obtained for 60 minutes. There is prompt visualization of the stomach. There is no gastroesophageal reflux identified. The T ? raw data emptying was calculated to be 48.81 minutes, (Normal: 12-56 minutes). NM/Gastric Emptying Study IMPRESSION: 1. NORMAL 99m Tc sulfur colloid semi-solid phase (oatmeal) gastric emptying imaging examination. A. There is normal and preserved semi-solid phase gastric emptying compared to normal controls. (Walt et al, J Nucl Med Tech 38: 186, 2010). Electronically Signed: Alex Kim DO at 8:39 EDT ,
== END | disposition home or self-care (01) ==
LOC: NM 06:39
PROVIDERS: PCP Family Medicine; Referring Provider Internal Medicine Gastroenterology; Visit Provider Internal Medicine Gastroenterology
DX: K20.0 Eosinophilic esophagitis (principal); K59.09 Other constipation
CPT/HCPCS: 78264; A9541

== ENCOUNTER 2023-08-10 12:35 | Day surgery (SDC) | payer OTHER, SELFPAY ==
[2023-08-10] MEDS: Lidocaine Jelly 2% 20 ML Syringe (URO-JET) 1 APPLIC (13:15)
[2023-08-10 13:37] VITALS: BP 140/102; PULSE 62; O2SAT 100
== END 2023-08-10 23:59 | disposition home or self-care (01) ==
LOC: EN 12:35
PROVIDERS: PCP Family Medicine; Referring Provider Internal Medicine Gastroenterology; Visit Provider Internal Medicine Gastroenterology
PROC: F00ZJWZ Instrumental Swallowing and Oral Function Assessment using Swallowing Equipment (ICD-10-PCS; CPT 43235; principal; 2023-08-10 12:25)
DX: K22.4 Dyskinesia of esophagus (principal)
CPT/HCPCS: 91010

== ENCOUNTER → 2023-10-15 | Outpatient (CLI) | payer OTHER, SELFPAY ==
--- NOTE | 2023-10-15 07:34 | CT_ITS ---
STUDY: CT ABDOMEN AND PELVIS WITH CONTRAST REASON FOR EXAM: Female, 53 years old. Diaphragmatic hernia without obstruction or gangrene RADIATION DOSAGE (If Supplied By Facility): CTDIvol = ( 16.59 ) mGy, DLP = ( 1129.32 ) mGycm TECHNIQUE: Transaxial images were obtained from the dome of the diaphragm to the symphysis pubis with oral contrast. Oral and amp; IV Readi-CAT and amp; 100mL Isovue-300 was administered. Sagittal and coronal images were reconstructed. Individualized dose optimization techniques were used for this CT. COMPARISON: Comparison is made with prior study dated April 15, 2013. FINDINGS: The visualized lung bases are unremarkable. The visualized portions of the heart are within normal limits. Stable elevation of the right hemidiaphragm. There is decreased attenuation of the liver consistent with steatosis. Normal gallbladder and extrahepatic biliary system. Normal spleen. Normal pancreas. Normal bilateral adrenal glands. Normal right kidney. There is a 1.4 cm cyst in the anterior aspect of the left kidney. There is a moderate hiatal hernia. Normal small intestine. Normal colon. The appendix is visualized and appears normal. Normal abdominal aorta. Normal inferior vena cava. Normal retroperitoneum. Normal urinary bladder. There is absence of the uterus consistent with a prior hysterectomy. Normal abdominal wall. Normal osseous structures. CT/Abdomen/Pelvis WITH Contrast IMPRESSION: Stable elevation of the right hemidiaphragm. Diffuse fatty infiltration of the liver. Electronically Signed: Orlando Razo MD at 10:01 EDT ,
== END | disposition home or self-care (01) ==
LOC: CT 07:32
PROVIDERS: PCP Family Medicine
DX: K44.9 Diaphragmatic hernia without obstruction or gangrene (principal); K21.9 Gastro-esophageal reflux disease without esophagitis; R13.19 Other dysphagia
CPT/HCPCS: 74177; Q9967

== ENCOUNTER → 2023-10-24 | Outpatient (CLI) | payer OTHER, SELFPAY ==
--- NOTE | 2023-10-24 07:50 | RAD_ITS ---
EXAMINATION: Air contrast UPPER GI SERIES INDICATION: Female, 53 years hiatal hernia. Gastroesophageal reflux. FLUOROSCOPY TIME (if supplied): (0:48) minutes/seconds. 30.95 mGy. 29 fluoroscopic images were obtained. TECHNIQUE: Radiographic and fluoroscopic images of the distal esophagus, stomach, and proximal small intestine were obtained following the oral ingestion of barium. COMPARISON: None. FINDINGS: There is no evidence for organomegaly, abnormal calcifications, or abnormal bowel gas pattern. The psoas margins and flank stripes are normal. The visualized osseous structures are normal. The mucosa of the esophagus, stomach and duodenum is normal in appearance without evidence for stricture, ulceration, mass or diverticulum. There is a moderate-sized hiatal hernia with gastroesophageal reflux. The remainder of the stomach and duodenum is unremarkable. RAD/Upper GI Dual Contrast IMPRESSION: 1. Moderate sized hiatal hernia with gastroesophageal reflux. Electronically Signed: Orlando Razo MD at 14:51 EDT ,
== END | disposition home or self-care (01) ==
PROVIDERS: PCP Family Medicine
DX: R13.19 Other dysphagia (principal); K44.9 Diaphragmatic hernia without obstruction or gangrene; K21.9 Gastro-esophageal reflux disease without esophagitis
CPT/HCPCS: 74246

== ENCOUNTER → 2023-12-20 | Outpatient (CLI) | payer OTHER, SELFPAY ==
[2023-12-20 14:20] LABS: Vitamin B12 641 pg/mL (211-911)
[2023-12-20 14:27] LABS: Ferritin 63 ng/mL (8-252); Free T3 2.4 pg/mL (2.18-3.98); Iron 80 ug/dL (50-170); Magnesium 2.4 mg/dL (1.6-2.6); T4 Free Direct 0.71 ng/dL (0.76-1.46)
== END | disposition home or self-care (01) ==
LOC: LAB 13:12
PROVIDERS: PCP Family Medicine; Referring Provider Family Medicine; Visit Provider Family Medicine
DX: E03.9 Hypothyroidism, unspecified (principal); R53.83 Other fatigue; Z51.81 Encounter for therapeutic drug level monitoring; E55.9 Vitamin D deficiency, unspecified; G25.81 Restless legs syndrome
CPT/HCPCS: 36415; 82306; 82607; 82728; 83540; 83735; 84439; 84443; 84481

== ENCOUNTER → 2024-06-10 | Outpatient (CLI) | payer OTHER, SELFPAY ==
--- NOTE | 2024-06-10 07:06 | CT_ITS ---
PROCEDURE: LIMITED CHEST CT CARDIAC ONLY REASON FOR EXAM: Family history of ischemic heart disease. TECHNIQUE: Chest CT without contrast. COMPARISON: None. FINDINGS: Hardware: None. Lymph nodes: No mediastinal hilar or axillary lymphadenopathy. Heart and Vasculature: Normal heart size. No pericardial effusion. Thoracic aorta and pulmonary arteries have normal contours; noncontrast technique limits evaluation. Coronary Artery Calcifications: Present Lungs and Airways: The lungs are normally expanded and clear. Pleura: No pleural effusion. No pneumothorax. Upper Abdomen: Small hiatal hernia. Bones: Degenerative changes of the thoracic spine. CT/Limited Chest CT Cardiac Only IMPRESSION: Coronary artery calcification. One or more dose reduction techniques were used (e.g., Automated exposure contr ol, adjustment of the mA and/or kV according to patient size, use of iterative reconstruction technique). Reading Location: [place] [id number]
--- NOTE | 2024-06-10 08:21 | CA.SCORE ---
Calcium Scoring Date of Study:: 06/10/24 Indications Indications: Family history Coronary Calcium Scoring: High-resolution Computed Tomographic imaging of the chest was performed on [06/10/2024], with particular attention paid to the coronary arteries. Images from the examination were analyzed for the presence and extent of coronary artery calcification , using coronary calcium quantification software. The patient tolerated the procedure well and there were no complications. The results of the coronary calcification analysis are provided below. Findings Coronary Artery Left Main (LM): 0 Left Anterior Descending (LAD): 51 Left Circumflex (LCX): 0 Right Coronary Artery (RCA): 0 Total Agatston Score: 51 Percentile Rankinth to 90th percentile Calcium Scoring Interpretation: Different methods to categorize the overall amount of coronary plaque. Overall amount CAC SIS Visual of coronary plaque P1 Mild -100 <2 1-2 vessels with mild amount of plaque P2 Moderate 101-300 3-4 1-2 vessels with moderate amount, 3 vessels with mild amount of plaque P3 Severe 301-999 5-7 3 vessels with moderate amount, 1 vessel with severe amount of plaque P4 Extensive >1000 >8 2-3 vessels with severe amount of plaque Conclusion: Focal atherosclerotic plaquing noted of the left anterior descending artery.
== END | disposition home or self-care (01) ==
LOC: CT 07:05
PROVIDERS: PCP Family Medicine; Referring Provider Family Medicine; Visit Provider Family Medicine
DX: I25.10 Atherosclerotic heart disease of native coronary artery without angina pectoris (principal); Z82.49 Family history of ischemic heart disease and other diseases of the circulatory system; K44.9 Diaphragmatic hernia without obstruction or gangrene
CPT/HCPCS: 75571; 76380

== ENCOUNTER → 2024-09-03 | Outpatient (CLI) | payer OTHER, SELFPAY ==
--- NOTE | 2024-09-03 09:58 | RAD_ITS ---
PROCEDURE: KNEE 4 OR MORE VIEWS 09/03/2024 REASON FOR EXAM: PAIN TECHNIQUE: Four views of the left knee COMPARISON: Left knee study dated 03/31/2022 FINDINGS: Postsurgical changes involving the distal femur and proximal tibia. Radiopaque plates appear to be in satisfactory position without evidence of fracture or loosening. There are no acute fractures or dislocations. Mild arthritic changes involving medial femoral tibial joint. The remaining joint spaces are well preserved. There is no suprapatellar bursa effusion. No visible soft tissue swelling is seen. RAD/Knee 4 or More Views IMPRESSION: Postsurgical changes involving the distal femur and proximal tibia Very mild arthritic changes involving the medial femorotibial joint. Reading Location: [id number]
== END | disposition home or self-care (01) ==
LOC: MTRAD 09:58
PROVIDERS: PCP Family Medicine; Referring Provider Orthopaedic Surgery; Visit Provider Orthopaedic Surgery
DX: M25.662 Stiffness of left knee, not elsewhere classified (principal)
CPT/HCPCS: 73564

== ENCOUNTER → 2024-09-08 | Outpatient (CLI) | payer OTHER, SELFPAY ==
--- NOTE | 2024-09-08 13:30 | STE_ITS ---
Reason For Study Reason For Study: Chest Pain Stress Results Protocol: Shahbaz Protocol Maximum Predicted HR: 169 bpm Target HR: 144 bpm % Maximum Predicted HR: 83 % DurationHeart Rate Stage (mm:ss) (bpm) BP Comment Baseline 65 132/84No Chest Pain Shahbaz Protocol Stage I 3:00 100 140/78No Chest Pain Shahbaz Protocol Stage II 3:00 118 144/68No Chest Pain; Mild Dyspnea Shahbaz Protocol Stage III 3:00 141 160/72No Chest Pain; Moderate Dyspnea Recovery 80 128/82No Chest Pain Stress Duration: 9:00 mm:ss Maximum Stress HR: 141 bpm METS: 10 Baseline Echocardiogram Findings Baseline LV systolic function normal. Estimated LVEF 55%. Tricuspid aortic valve. Normal mitral valve. Stress Echo Wall motion Data Resting WM Intermediate WM Stress WM Resting Wall Motion Wall Motion Stress No regional wall motion abnormalities All LV wall segments augmented normally noted. postexercise. No regional wall motion abnormality. EKG Data Baseline ECG normal sinus rhythm. Peak exercise ECG fails to show any diagnostic ischemic changes. ECHO/Stress Test Echo w/o Contrast Interpretation Summary Technically adequate exercise stress echo. Patient exercised on the treadmill for 9 minutes achieving 84% of the maximal p redicted heart rate. Adequate blood pressure response to exercise. Stress ECG negative for ischemia. No echo evidence of ischemia. Ordering Physician: Lee Rich Referring Physician: Lee Rich Performed By: Zev Carlson RCS
== END | disposition home or self-care (01) ==
LOC: CVS 13:29
PROVIDERS: PCP Family Medicine; Referring Provider Internal Medicine Cardiovascular Disease; Visit Provider Internal Medicine Cardiovascular Disease
DX: R07.9 Chest pain, unspecified (principal); I10 Essential (primary) hypertension
CPT/HCPCS: 93017; 93350

== ENCOUNTER → 2024-09-19 | Outpatient (CLI) | payer OTHER, SELFPAY ==
--- NOTE | 2024-09-19 15:01 | BI_ITS ---
EXAM: SCRN MAMM (CAD)W/FEDERICO BILAT DATE: 09/19/2024 CLINICAL HISTORY: F, Age 53 y/o , SCREENING BREAST CANCER RISK ASSESSMENT: Not reported TECHNIQUE: Bilateral screening digital breast tomosynthesis with 2D and 3D images. Computer aided detection. COMPARISON: Prior exam(s) were compared FINDINGS: TISSUE DENSITY: The breast tissue is heterogenously dense, which may obscure small masses. Bilateral Breast Mammographic Findings: No suspicious masses, calcifications or other abnormalities are identified. BI/SCRN MAMM (CAD)W/FEDERICO BILAT IMPRESSION: OVERALL FINAL ASSESSMENT: BIRADS 1 NEGATIVE RECOMMENDATION: Routine annual follow-up in 1 Year A letter with findings and recommendations will be mailed to the patient. Reading Location: [id number]
== END | disposition home or self-care (01) ==
LOC: OPBI 14:58
PROVIDERS: PCP Family Medicine; Referring Provider Family Medicine; Visit Provider Family Medicine
DX: Z12.31 Encounter for screening mammogram for malignant neoplasm of breast (principal)
CPT/HCPCS: 77063; 77067

== ENCOUNTER 2024-10-20 13:30 | Outpatient (RCR) | payer OTHER, SELFPAY ==
--- NOTE | 2024-09-23 13:16 | HP.PTEVAL ---
Patient's Visit Information Visit Information Visit Information: MANJULA SAUCEDA is a 53 year old F referred to Physical Therapy by Dr. Gayle Merino DO with a diagnosis of R hip pain.. Date of Evaluation: 09/23/24 Physical Therapist: Enrique Johnson, DPT, OCS, CSCS Visit Plan Frequency: 2x /Week Duration: 4-6 Weeks Plan: 2x/week for 4-6 weeks... IE HEP: itb sidelying stretch 2-3 min and itb strap stretch supine 30 4x all 2x/day with pics Treat with instruction in and progression of hip and core strength mat to gym with pics and list for I. may use rollout STM to TFL and US nonthermal to R TFL if needed or tENS, ice Subjective Subjective: B hip pain, R>L for a couple months, not sure why it started. Pain is deep and lateral. Comfortable at rest. it hurts with getting out of bed and feels stiff. Annoying. Lots ofB walking at work on PCU but worse if sit too long and get up. Weather can make it worse. Activities are normal except for kayaking. just gets stiff if sits too long. Sleeping is not a problem but can hurt if she rolls or lies on one side too long. Basic ADLs are normal, hard to clean bottom cupboards, hurts to get back up. No regualr exercises. Hobbies include yard work and walking dog, Keeps it close. Pain B hip pain.: Pain Intensity (Out of 10): 0 Pain Intensity Range: 0 and 3 Objective Objective: Walks into PT I, mild B trendelenberg but I. Trasnfers table and chair I. Tender to palpation R>L TFL, ITB and GT area max R and mod L. Hypermobile in all LE muscles and joints except ITB which is mildly tight B. Unstable core and hips with seated testing UE and LE with 3/5 strength abs and ext. hip strength is 3 abd and 3 ext without pain, flexion 3+, knees ext adn flexion 4-, ankles 4/5 . reflexes 2/3 patella and achilles B Sensation LE WNL to gross light touch B. - slump, - SLR, - FADDIR, slight pain with AC R. lumbar AROM is full and painfree in all motions. Balance/Special Test Scores Lower Extremity Functional Score: 67 Goals Goal 1:: walk at work and get up out of chair without pain Goal Time Frame: 4-6 Weeks Goal 2:: Pain in hips 90% better and 1/10 at worst Goal Time Frame: 4-6 Weeks Goal 3:: I apporpriate HEP for core and hip strength Goal Time Frame: 4-6 Weeks Goal 4:: LEFS score 70 Goal Time Frame: 4-6 Weeks Rehabilitation Potential Physical Therapy Diagnosis: Instability hip and core creating pain in hip tissue and limiting comfort of funciton. Rehabilitation Potential: Good Anticipated Interventions Patient/Client Instruction: Educate patient on: Condition and Plan of Care For the Purpose of:: To decrease pain, To increase ROM, To improve nutrient delivery to tissue, To improve muscle performance and motor function, To increase tolerance to activity/condition/position and To improve ability of physical actions for home/community/work/leisure Therapeutic Exercise to Include: Strength training, Postural training, Flexibilty training, Passive ROM and Active ROM For the Purpose of:: To decrease pain, To increase ROM, To improve nutrient delivery to tissue and To improve muscle performance and motor function Manual Therapy Techniques to Include: Passive ROM and Soft tissue mobilization For the Purpose of:: To decrease pain, To increase ROM and To improve nutrient delivery to tissue Cryotherapy (ice pack, ice massage): Yes Ultrasound (thermal/non thermal): Yes For the Purpose of:: To decrease pain, To decrease swelling/inflammation and To increase ROM Text: Thank you for the opportunity to evaluate your patient. For Medicare and Medicare HMO plans, please review the plan of care and approve it. It will need to be FAXED BACK to us at [phone] for Medicare purposes. For Medicare only, by signing this I certify the plan of care. Please let me know if there are questions or concerns regarding this plan of care. Physician Signature: Date:
--- NOTE | 2024-10-20 14:09 | HP.PTDCSUM ---
Discharge Summary D/C summary: It has been my pleasure to treat MANJULA SAUCEDA referred by Dr. Gayle Merino DO, with the diagnosis of R hip pain. for a total of 9 visit(s). Discharge Date: 10/20/24 Please see the following information for a summary of their discharge status. Subjective Subjective: Pain is pretty good. no pain sinceFriday and took steroids Sunday. Getting stronger and doing ex at home in bed. Activities pretty normal at home. Sleeping is good Pain B hip pain.: Pain Intensity (Out of 10): 0 Overall Improvement % Improvement: 95 Objective Objective/Function: Tnder slightly over GT B L >R but not painful and walking normal. Tolrating home and work activities well. Steroids vs therapy?? but was much better before starting steroids for poison lisandro last week. Goals Goal 1:: walk at work and get up out of chair without pain Goal Progress: Goal Met Goal 2:: Pain in hips 90% better and 1/10 at worst Goal Progress: Goal Met Goal 3:: I apporpriate HEP for core and hip strength Goal Progress: Goal Met Goal 4:: LEFS score 70 Goal Progress: Goal Met Plan Plan: d/c to HEP D/C Information Discharge Comments: Doing well and will continue via HEP d/c sentence: If there are questions or concerns regarding this patient's physical therapy, please feel free to call me at [phone]. Thank you for the referral of this patient. Sincerely, Enrique Johnson, DPT, OCS, CSCS Balance/Gait/Functional tests Balance/Special Test Scores Lower Extremity Functional Score: 70 Improvement % Improvement: 95
== END 2024-10-20 19:00 | disposition home or self-care (01) ==
LOC: PT 13:30
PROVIDERS: PCP Family Medicine; Referring Provider Family Medicine; Visit Provider Family Medicine
DX: M25.551 Pain in right hip (principal)
CPT/HCPCS: 97110; 97140; 97161; 97164

== ENCOUNTER → 2025-01-12 | Outpatient (CLI) | payer OTHER, SELFPAY ==
--- NOTE | 2025-01-12 09:59 | RAD_ITS ---
PROCEDURE: KNEE 4 OR MORE VIEWS 01/12/2025 REASON FOR EXAM: LEFT KNEE PAIN TECHNIQUE: Procedure Code: RADKN Modality: DX Procedure: KNEE 4 OR MORE VIEWS Laterality: Left COMPARISON: Left knee study dated 09/03/2024 FINDINGS: Bones: Postsurgical changes involving the distal femur and proximal tibia are again noted. The radiopaque plates appear to be in satisfactory position and similar when compared to the prior study. There is no evidence of loosening or fracture. There are no acute fractures or dislocations. Joints: Mild arthritic changes of the medial femorotibial joint are noted. The remaining joints are well preserved. Effusion: There is no suprapatellar bursa effusion. Soft tissues: There is no soft tissue swelling. RAD/Knee 4 or More Views IMPRESSION: Postsurgical changes involving the distal femur and proximal tibia. Mild arthritic changes involving the medial femorotibial joint. Reading Location: [id number]
== END | disposition home or self-care (01) ==
LOC: MTRAD 09:59
PROVIDERS: PCP Family Medicine; Referring Provider Orthopaedic Surgery; Visit Provider Orthopaedic Surgery
DX: M25.562 Pain in left knee (principal)
CPT/HCPCS: 73564

== ENCOUNTER → 2025-01-14 | Outpatient (CLI) | payer OTHER, SELFPAY ==
--- NOTE | 2025-01-14 17:37 | MRI_ITS ---
PROCEDURE: LOWER EXT JOINT ONLY (ROUTINE) 01/14/2025 REASON FOR EXAM: UNSPECIFIED INJURY LEFT LOWER LEG INITIAL ENCOUNTER, HEMARTHROSIS TECHNIQUE: Procedure Code: MRILEJ Modality: MR Procedure: MRI of the left knee without contrast. Multiplanar and multisequence images were obtained without IV contrast administration. COMPARISON: COMPARISON : Left knee series of 01/12/2025. FINDINGS: Prior anterior cruciate ligament reconstruction noted, with some areas of associated metallic artifact seen. However, no intact anterior cruciate ligament is seen. The posterior cruciate ligament appears intact. Collateral ligaments appear intact. Visualized extensor tendons appear intact. A small left knee joint effusion is seen. No Glass's or popliteal cyst is seen. Mild tricompartmental degenerative changes are seen, most prominent in the medial and lateral compartments, or [id number] irregular articular cartilage thinning is seen. A complex tear of the posterior horn of the medial meniscus is seen. No lateral meniscal tear is clearly appreciated. MRI/Lower Ext Joint Only (Routine) IMPRESSION: 1. Although prior anterior cruciate ligament reconstruction is seen, no intact anterior cruciate ligament is now evident. 2. Posterior horn medial meniscal tear. 3. Small left knee joint effusion. 4. Degenerative changes, most prominent in the medial and lateral compartments. Reading Location: [facility]
== END | disposition home or self-care (01) ==
LOC: MRI 17:35
PROVIDERS: PCP Family Medicine; Referring Provider Orthopaedic Surgery; Visit Provider Orthopaedic Surgery
DX: M25.062 Hemarthrosis, left knee (principal); S89.92XA Unspecified injury of left lower leg, initial encounter; X58.XXXA Exposure to other specified factors, initial encounter
CPT/HCPCS: 73721

== ENCOUNTER 2025-02-18 14:00 | Outpatient (RCR) | payer OTHER, SELFPAY ==
--- NOTE | 2025-01-27 15:46 | HP.PTEVAL ---
Patient's Visit Information Visit Information Visit Information: MANJULA SAUCEDA is a 54 year old F referred to Physical Therapy by Dr. Dylan Gilman DO with a diagnosis of L knee injury.. Date of Evaluation: 01/27/25 Physical Therapist: Enrique Johnson, DPT, OCS, CSCS Visit Plan Frequency: 2x /Week Duration: 4-6 Weeks Plan: 2x/week for 4-6 for IE HEP: SLR abd, ext, flexion 3x15 daily with HO Please treat with progression of mat based core adn hip ex to HEP quickly. then BW funcitonal hip and core strength to HEP then gym based LE, hip and core strength to I. Subjective Subjective: Waking down stairs 2 weeks ago and knee slid medially. It hurt and went to [facility] and drained it and then injection a week later. They helped. Theye helpeed to make it feel OK. It is back to normal but not a trustworthy knee. Getting up from couch is careful and catches sometimes. employed respiratory on feet all day. On it all night last night and toleratex well with minimal pain. Sleep is OK. Avoids stairs at home, and laundry is downstairs. Usees elevator bc she does not trust it. Has knee brace and does not wear it. Reegular ex: no. Hobbies kayak not lately. Pain L kne: Pain Intensity (Out of 10): 0 Pain Intensity Range: 0 and 2 Objective Objective: Walks with slight L antalgia into PT I, steps with poor confideence desecnding but reciprocal and one rail to descend. Chair and bed transfer I. AROM B knees 0-140 hypermobile with ext B and no pain. hip and ankles WFL ARROM strength knees 4/5 B no pain, hip abd and ext 3 B with obvious IR with trunk teesting. instability on core with hip flxion testing B. Tenderness is subtle on L medial knee anterior capsule and MCL + ant drawer L, slight + valgus L. - bounce home, - pivot shift, - post sag, Poor trust coming down steps using L Balance/Special Test Scores Lower Extremity Functional Score: 61 Goals Goal 1:: I appropriate HEP for core adn hip and knee strength home, gym and WB to manage condition. Goal Time Frame: 4-6 Weeks Goal 2:: Confidently come down steps without hesitation. Goal Time Frame: 4-6 Weeks Goal 3:: Patient feel 100% back to normal acti vity Goal Time Frame: 4-6 Weeks Goal 4:: LEFS score 65 Goal Time Frame: 4-6 Weeks Rehabilitation Potential Physical Therapy Diagnosis: L knee instability, pain and poor confidence limting comfortable function at home. Rehabilitation Potential: Fair Anticipated Interventions Patient/Client Instruction: Educate patient on: Condition and Plan of Care For the Purpose of:: To decrease pain, To improve nutrient delivery to tissue, To improve muscle performance and motor function, To increase tolerance to activity/condition/position, To improve ability of physical actions for home/community/work/leisure and To improve gait and locomotor functions Therapeutic Exercise to Include: Strength training and Gait and locomotor training For the Purpose of:: To decrease pain, To increase ROM and To improve nutrient delivery to tissue Text: Thank you for the opportunity to evaluate your patient. For Medicare and Medicare HMO plans, please review the plan of care and approve it. It will need to be FAXED BACK to us at [phone] for Medicare purposes. For Medicare only, by signing this I certify the plan of care. Please let me know if there are questions or concerns regarding this plan of care. Physician Signature: Date:
--- NOTE | 2025-03-05 09:31 | HP.PT.NRP ---
Patient Information Patient Information: MANJULA SAUCEDA was seen in my office for initial evaluation on 01/27/25. The following Plan of Care was established for this patient: POC Established Initial Frequency: 2x /Week Initial Duration: 4-6 Weeks Anticipated Interventions Patient/Client Instruction: Educate patient on: Condition and Plan of Care For the Purpose of:: To decrease pain, To improve nutrient delivery to tissue, To improve muscle performance and motor function, To increase tolerance to activity/condition/position, To improve ability of physical actions for home/community/work/leisure and To improve gait and locomotor functions Therapeutic Exercise to Include: Strength training and Gait and locomotor training For the Purpose of:: To decrease pain, To increase ROM and To improve nutrient delivery to tissue Last Seen Last Seen: This patient was last seen in our office 02/18/25. Pertinent comments regarding their Physical therapy will appear below: Pt seen 8 visits of POC but canclld the rest due to not progressing. I will disocntinue at this time at her request. At this point I will be discontinuing this patient from physical therapy. I would be happy to see this patient again in the future if found appropriate by the physician. Thank you! Enrique Johnson, DPT, OCS, CSCS Balance/Gait/Functional tests Balance/Special Test Scores Lower Extremity Functional Score: 61
== END 2025-02-18 19:00 | disposition home or self-care (01) ==
LOC: PT 14:00
PROVIDERS: PCP Family Medicine; Referring Provider Orthopaedic Surgery; Visit Provider Orthopaedic Surgery
DX: S89.92XD Unspecified injury of left lower leg, subsequent encounter (principal)
CPT/HCPCS: 97110; 97161; A4216

== ENCOUNTER → 2025-03-05 | Outpatient (CLI) | payer OTHER, SELFPAY ==
--- NOTE | 2025-03-05 13:53 | RAD_ITS ---
PROCEDURE: RAD/Chest PA and Lateral
== END | disposition home or self-care (01) ==
PROVIDERS: PCP Family Medicine; Referring Provider Family Medicine; Visit Provider Family Medicine
DX: R05.9 Cough, unspecified (principal); B34.9 Viral infection, unspecified
CPT/HCPCS: 71046; 87633